=== PATIENT | male | born 1955 | race Caucasian/White ===

== ENCOUNTER 2024-04-25 17:26 | Emergency (ER) | payer OTHER ==
[~2024-04-25] VITALS: Ht 167.6 cm; Wt 63.5 kg
[2024-04-25] MEDS ORDERED: LIDOCAINE HCL 1% 20 ML VIAL INJ STA (18:03)
[2024-04-25 18:15] VITALS: BP 168/89; PULSE 86; RESP 16; TEMP 98.3; O2SAT 98
--- NOTE | 2024-04-25 18:16 | NUR ---
WOUND CARE\WOUND IRRIGATED USING STERILE TECHNIQUE
[2024-04-25] MEDS ORDERED: CEPH500B PO (18:23)
--- NOTE | 2024-04-25 18:24 | ERN ---
General Chief Complaint: Laceration/Avulsion Stated Complaint: LACERATION ON ARM Time Seen by MD: 17:30 Source: patient History of Present Illness Initial Comments IN HIS IS A 68-YEAR-OLD MALE COMING IN TO BE EVALUATED FOR LEFT WRIST LACERATION. PATIENT STATES THAT HE WAS WORKING ON SOME GLASS AND THE GLASS CUT HIS ANTERIOR ASPECT OF THE LEFT WRIST. HE STATES THAT THE GLASS WAS COMPLETE NO PARTICLES WERE MISSING. Allergies: Coded Allergies: No Known Drug Allergies (Unverified Allergy, Unknown, 04/25/24) Past Medical History Past Medical History: Hypertension Past Surgical History: Unknown Surgical History Other: ABLATION ROS Dictation CONSTITUTIONAL: NO CHILLS, NO FEVER, NO WEAKNESS, NO DIAPHORESIS, NO MALAISE. HEAD/FACE: NO SIGNS OF TRAUMA. EENT: NO EYE PAIN, NO BLURRED VISION, NO TEARING, NO DOUBLE VISION, NO EAR PAIN, NO EAR DISCHARGE, NO NOSE PAIN, NO NASAL CONGESTION, NO THROAT PAIN, NO THROAT SWELLING, NO MOUTH PAIN. RESPIRATORY: NO COUGH, NO ORTHOPNEA, NO SOB, NO STRIDOR, NO WHEEZING. CARDIOVASCULAR: NO CHEST PAIN, NO EDEMA, NO PALPITATIONS, NO SYNCOPE. GASTROINTESTINAL/ABDOMINAL: NO ABDOMINAL PAIN, NO CONSTIPATION, NO DIARRHEA, NO NAUSEA, NO VOMITING. GENITOURINARY: NO ABNORMAL DISCHARGE, NO DYSURIA, NO FREQUENT URINATION, NO HEMATURIA. NO COMPLAINTS OF PAIN IN THE GENITALS. MUSCULOSKELETAL: NO BACK PAIN, NO GOUT, NO JOINT PAIN, NO JOINT SWELLING, NO MUSCLE PAIN, NO MUSCLE STIFFNESS, NO NECK PAIN. INTEGUMENTARY: NO CHANGE IN COLOR, NO CHANGE IN HAIR/NAILS, NO DRYNESS, LESION, NO LUMPS, NO RASH. NEUROLOGICAL/PSYCH: NO ANXIETY, NOT DEPRESSED, NO EMOTIONAL PROBLEM, NO HEADACHE, NO NUMBNESS, NO PRE-EXISTING DEFICIT, NO HISTORY OF SEIZURES, NO TREMORS, NO WEAKNESS. HEMATOLOGIC/LYMPHATIC: NOT ANEMIC, NO HISTORY OF BLOOD CLOTS, NO APPARENT BLEEDING, NO BRUISING, GLANDS NOT SWOLLEN. ALL SYSTEMS NEGATIVE, EXCEPT NOTED. Physical Exam Physical Exam Dictation VITAL SIGNS: REVIEWED. GENERAL APPEARANCE: ALERT, ORIENTED X3, NO ACUTE DISTRESS, OBESE. HEAD AND FACE: NON-TRAUMATIC. EYES: PERRL, PINK CONJUNCTIVAS, EYELID NO TRAUMA, ANTERIOR CHAMBER CLEAR. EARS: PINNAS INTACT AND NO SIGNS OF TRAUMA OR ERYTHEMA. EAR CANALS CLEAR AND NO DISCHARGE. TMS NO ERYTHEMA. NOSE: NO DISCHARGE, NO BLEEDING. OROPHARYNX: MOUTH NORMAL, TEETH NO CARIES, TONGUE PINK. PHARYNX CLEAR, NO ERYTHEMA. TONSILS NO EXUDATES, NO ABSCESSES NOTED. MUCOUS MEMBRANE MOIST. NECK: SUPPLE, NON-TENDER, NO THYROMEGALY, NO MASSES, NO JVD, NO BRUITS. BREAST: DEFERRED. CHEST: NO TENDERNESS, NO CREPITUS, NO PARADOXICAL MOVEMENT, NO RETRACTIONS. LUNGS: CLEAR, WELL-VENTILATED, SYMMETRIC, NO RALES, NO WHEEZING, NO RHONCHI, NO STRIDOR, GOOD BREATH SOUNDS BILATERALLY. HEART: REGULAR RATE, REGULAR RHYTHM, NO MURMUR, NO GALLOPS. VASCULAR: NO PERIPHERAL EDEMA. ABDOMEN: SOFT, POSITIVE BOWEL SOUNDS, NONDISTENDED, NO GUARDING, NONTENDER, NO REBOUND, NO MASSES NO HEPATOMEGALY, NO SPLENOMEGALY, NO FARAH'S SIGN, NO HERNIAS. RECTAL: DEFERRED. GENITAL: DEFERRED. NEUROLOGICAL: NORMAL SPEECH, GROSS MOTOR FUNCTION INTACT, GROSS SENSORY FUNCTION INTACT. MUSCULOSKELETAL: NECK NONTENDER, FULL RANGE OF MOTION, BACK NONTENDER, FULL RANGE OF MOTION. EXTREMITIES: NONTENDER, FULL RANGE OF MOTION. SKIN: COLOR PINK, DRY, NO TURGOR, NO RASH, LEFT FOREARM LACERATIONS Y SHAPED 3 CM X 3 CM, NO ABRASIONS, NO CONTUSIONS. LYMPHATICS: DEFERRED. Results Laboratory and Microbiology Labs Reviewed?: Yes MDM MDM: DIFFERENTIAL DIAGNOSIS: LACERATION REPAIR, WOUND 68-YEAR-OLD MALE COMING IN TO BE EVALUATED FOR LEFT WRIST LACERATION. LACERATION WAS ANESTHETIZED USING LIDOCAINE 1% 5 ML WERE USED. GOOD ANESTHESIA ACHIEVED. USING ETHILON FOUR 0 SIX SUTURES WERE PLACED GOOD APPROXIMATION, HEMOSTASIS OBTAINED. PATIENT WILL BE DISCHARGED WITH A DIAGNOSIS OF LACERATION OF THE WRIST. ED Course Orders Procedure Category Date Status Time Lidocaine Hcl 1% 20ml PHA 04/25/24 Complete Vial (Lidocaine Hc 18:03 Tetanus,Diphtheria PHA 04/25/24 In Process Tox [Adult] (Diphther 18:30 Current Medications Medications (Trade) Dose Ordered Sig/Carmen Route PRN Reason Start Time Stop Time Status Last Admin Dose Admin Lidocaine HCl (Lidocaine HCl 1% 20ml Vial) 20 ml ONCE STAT INJ 04/25/24 18:03 04/25/24 18:04 DC Tetanus/ Diphtheria Toxoids Adsorbed (DiphthERIA-teTANUS TOXOID [ADULT]/ DECAVAC) 0.5 ml ONCE ONCE IM 04/25/24 18:30 04/25/24 18:31 Vital Signs Date Time Temp Pulse Resp B/P (MAP) Pulse Ox O2 Delivery O2 Flow Rate FiO2 04/25/24 18:05 98.1 87 16 177/77 98 Room Air 0 Laceration/Wound Repair Laceration/Wound Repair : Wound Location: upper extremity Wound's Depth, Shape: superficial Wound Explored: clean Irrigated w/ Saline (ccs): 100 Betadine Prep?: Yes Anesthesia: 1% Lidocaine Volume Anesthetic (ccs): 5 Wound Repaired With: sutures Suture Size/Type: 4:0 Number of Sutures: 6 Layer Closure?: Yes DX & DISP Disposition: Discharge Departure Impression: Primary Impression: Wrist laceration Condition: Stable Scripts Cephalexin Monohydrate (Keflex) 500 Mg Cap 1 CAP PO TID for 10 Days, #30 CAP 0 Refills Prov: MALIK CHASE MD 04/25/24 Additional Instructions: FOLLOW-UP WITH PRIMARY CARE PROVIDER IN 1 TO 2 DAYS. TAKE MEDICATIONS DIRECTED HERE IN THE EMERGENCY ROOM. OKAY TO CONTINUE HOME MEDICATIONS UNLESS OTHERWISE DISCUSSED DURING YOUR VISIT IN THE EMERGENCY ROOM TODAY. RETURN TO YOUR NEAREST EMERGENCY ROOM IF SYMPTOMS WORSEN OR IF THERE IS NO IMPROVEMENT. CALL 911 IF YOU NEED IMMEDIATE ASSISTANCE. TAKE TYLENOL [id number] NEEDED AND IF NO CONTRAINDICATIONS ARE PRESENT. INCREASE ORAL HYDRATION. A WOUND CULTURE OR URINE CULTURE WAS ORDERED HERE IN THE EMERGENCY ROOM DEPARTMENT PLEASE FOLLOW-UP WITH PRIMARY CARE PROVIDER AND ADVISE THEM TO GET REPEAT PORTS FROM OUR FACILITY. IF YOU HAD ANY SNIDI WRAP/SPLINTS THAT WERE APPLIED HERE, PLEASE DO NOT REMOVE THEM UNTIL YOU SEE YOUR PRIMARY CARE OR SPECIALTY. REFERRALS: Referrals: ANTON HALL MD Time of Disposition: 18:23 MALIK CHASE MD Apr 25, 2024 18:24
--- NOTE | 2024-04-25 18:30 | NUR ---
ANTISEPTIC OINTMENT APPLIED PER PROVIDER ORDER, WOULD DRESSED USING STERILE GAUZE. WOUND CARE INSTRUCTIONS PROVIDED. PATIENT VERBALIZED UNDERSTANDING.
[2024-04-25] MEDS: teTANUS/diphthERIA TOXOID [ADULT] 0.5 ML VIAL IM ONE (18:33)
== END 2024-04-25 18:46 | disposition home or self-care (01) ==
LOC: EDH 17:26
DX: S61.512A Laceration without foreign body of left wrist, initial encounter (principal); I10 Essential (primary) hypertension; Z98.890 Other specified postprocedural states; W25.XXXA Contact with sharp glass, initial encounter; Y93.89 Activity, other specified; Y92.89 Other specified places as the place of occurrence of the external cause; Y99.8 Other external cause status
CPT/HCPCS: 12004; 90471; 90714; 99283

== ENCOUNTER 2025-03-13 17:50 | Inpatient (IN) | payer OTHER ==
[~2025-03-13] VITALS: Ht 180.3 cm; Wt 54.2 kg
[~2025-03-13 17:50] MED LIST: CEPH500B PO
[2025-03-13 18:16] LABS: SARS-CoV-2, RNA, NAAT NEGATIVE SARS CoV-2 (NEGATIVE)
[2025-03-13 18:18] LABS: RAPID GROUP A STREP negative (NEGATIVE)
[2025-03-13 18:29] LABS: INFLUENZA TYPE A Negative For Type A (NEGATIVE); INFLUENZA TYPE B Negative For Type B (NEGATIVE)
[2025-03-13 18:59] LABS: IMMATURE GRANULOCYTE ABSOLUTE 0.05 K/uL (0-1); NUCLEATED RED BLOOD CELLS 0.0 % (0.0-0.19); PLATELET COUNT (AUTO) 142 K/uL (130-400); RED BLOOD CELL COUNT(AUTO) 4.08 MIL/uL (4.50-6.20); RED CELL DISTRIBUTION WIDTH 13.8 % (11.0-15.5); WHITE BLOOD COUNT (AUTO) 11.7 K/uL (4.8-10.8)
[2025-03-13 19:00] LABS: CREATININE 0.6 mg/dL (0.5-1.3); GLOMERULAR FILTR. RATE CALC 104.0 mL/min (>90); GLUCOSE,RANDOM 103.0 mg/dL (70-105); SODIUM SERUM 128.0 mmol/L (136-145); UREA NITROGEN, BLOOD 7.0 mg/dL (7-18)
[2025-03-13 19:14] LABS: CREATINE KINASE, TOTAL 132.0 U/L (21-232)
--- NOTE | 2025-03-13 19:25 | EKG ---
[facility] Test Date: 2025-03-13 Test Time: 19:20:58 Pat Name: CHETNA SORIANO Department: ED Room: Gender: M Oncology Specialist: [id number] : 1955 Requested By: MOI STARKS Order Number: [id number] Reading MD: Manuel Montano Measurements Intervals [place] Rate: 106 P: 80 TN: 137 QRS: 83 QRSD: 152 T: -40 QT: 367 QTc: 474 Interpretive Statements Sinus tachycardia Atrial premature complexes Right bundle branch block ST depr, consider ischemia, inferior leads No previous ECG available for comparison Electronically Signed On 03-13-2025 21:54:30 GENERAL INSPECTOR by Manuel Montano Please click the below link to view image of tracing.
--- NOTE | 2025-03-13 19:29 | HMCIMG ---
EXAM: CR Chest, 1 View. CLINICAL HISTORY: COUGH COMPARISON: None provided. FINDINGS: LUNGS: Moderate left basilar infiltrate. Pneumonia likely Emphysematous lung changes PLEURAL SPACES: Left pleural effusion MEDIASTINUM: Cardiac size and mediastinal contours within normal limits. BONES: No acute osseous abnormality. IMPRESSION: 1. Moderate left basilar infiltrate. Pneumonia likely 2. Left pleural effusion 3. Emphysematous lung changes /[place]
--- NOTE | 2025-03-13 20:17 | NUR ---
PT ORIENTED TO ROOM, BED IN LOW POSITION, CALL LIGHT WITHIN REACH
--- NOTE | 2025-03-13 20:29 | HMCIMG ---
EXAM: US for Deep Venous Thrombosis, right lower Extremity. CLINICAL HISTORY: Leg Pain and Swelling TECHNIQUE: Real-time ultrasound scan of the veins of the right ower extremity with color Doppler flow, spectral waveform analysis and compression. COMPARISON: None provided. FINDINGS: DEEP VEINS: The common femoral, superficial femoral, and popliteal veins are echolucent and compressible. There is normal color Doppler flow throughout. The visualized calf veins appear patent. SOFT TISSUES: No popliteal fossa cyst or other abnormalities. IMPRESSION: No deep venous thrombosis evident on right lower extremity examination. /[place]
--- NOTE | 2025-03-13 20:46 | HMCIMG ---
EXAMINATION: DUPLEX ULTRASOUND EXAMINATION OF THE RIGHT LOWER EXTREMITY ARTERIES. CLINICAL HISTORY: Right foot discoloration. COMPARISON: None. FINDINGS: Peak systolic velocities within the right lower arteries are as follows: Common femoral artery: 186 cm/s. Superficial femoral artery: 78 cm/s at proximal, 90 cm/s at mid, and 42 cm/s at distal segments. Popliteal artery: 59 cm/s at proximal and 39 cm/s at distal segments. Posterior tibial artery: 11 cm/s. Anterior tibial artery: 46 cm/s. Dorsalis pedis artery: No flow. The right lower limb arteries demonstrate biphasic waveforms in common femoral, superficial femoral and monophasic in the remainder of the arteries. There are Atherosclerotic changes, characterised by multifocal atherosclerotic plaques and intimal wall thickening, in the right lower limb arteries. IMPRESSION: atherosclerotic changes in the right lower limb arteries. The right lower limb arteries demonstrate biphasic waveforms in common femoral, superficial femoral and monophasic in the remainder of the arteries. Increased velocity in the right common femoral artery. No flow in the dorsalis pedis artery. Recommend CT or MR angiogram. /[place]
[2025-03-13 20:47] VITALS: PULSE 77; RESP 18
[2025-03-13 20:50] LABS: INR 1.17 (0.85-1.15)
[2025-03-13] MEDS: 0.9%NACL 1000ML 1,000 ML IV ONE (22:22)
[2025-03-13] MEDS ORDERED: OXYC10TA48 PO (22:46)
[2025-03-13] MEDS ORDERED: OXYC20TA41 PO (22:47)
--- NOTE | 2025-03-13 22:56 | HP ---
[facility] HISTORY AND PHYSICAL Date of Service: Mar 13, 2025 Time of Service: 22:56 PCP: Self Referral HISTORY OF PRESENT ILLNESS: This is a 69-year-old male,from [facility] here for a vacation, a poor historian with past medical history of COPD,a heavy smoke r,Hyperlipidemia,hypertension,peripheral arterial disease,lupus and liver cirrhosis who present to the ED for complaints of cough,nasal congestion,fever and generalized body weakness started 2 days ago and got worse today. Patient reports he has clots on both legs and patient on Eliquis he said.Patient has left lower extremity swelling and redness discoloration.patient has discolor ation to right lower extremity as well. Seen and examined patient in the ER awake,alert and coherent.Patient denies chest pain,palpitation shortness of breath. Latest vital signs temperature 98.4, heart rate 96, blood pressure 129/51 saturation 91% on room air. Labs: WBC 11 with negative left shift of neutrophils 87, hemoglobin 13, hematocrit 39 and platelet count 142. Sodium 128, chloride 95, lactic acid 1.9, total calcium 8.4 BNP 180. Influenza type a and B negative SARS COVID negative group a strep negative. Chest x-ray result revealed moderate left basilar infiltrate. Pneumonia likely. Left pleural effusion. Emphysematous lung changes. Right lower extremity arterial Doppler study result revealed atherosclerotic changes in the right lower limb arteries right lower extremity arteries demonstrate biphasic waveforms in common femoral superficial femoral and monophasic in the remainder of the arteries increased velocity in the right common femoral artery. No flow in the dorsalis pedis artery recommend CT or MR angiogram. Venous Doppler to right lower extremity result revealed no deep venous thrombosis evident on the right lower extremity. While in the ER patient received 1 L NS bolus, Tylenol 1000 mg p.o., Solu-Medrol 80 mg IV, DuoNeb treatment, ceftriaxone 1 g IV and azithromycin IV and nicotine patch 14 mg. We will admit patient for further medical management REVIEW OF SYSTEMS CONSTITUTIONAL: + fever Denies chills, or night sweats. No unintentional weight loss reported. NEUROLOGICAL: Denies headache, amaurosis fugax, motor weakness, sensory deficit, vertigo/spinning sensation, gait abnormalities, or tremors. ENT: No hearing loss, otalgia, otorrhea, rhinitis, rhinorrhea, hoarseness, or sore throat. CARDIOVASCULAR: Denies any exertional angina, dyspnea on exertion, orthopnea, paroxysmal nocturnal dyspnea, palpitations, life-threatening arrhythmias, claudication. PULMONARY: + productive cough Denies any shortness of breathhemoptysis, pleuritic chest pain. SLEEP: Denies morning headaches, daytime somnolence or napping. Denies difficulty falling asleep, staying asleep, waking from sleep. Denies knowledge of snoring. GASTROINTESTINAL: Denies any type of dysphagia to either liquids or solids. Denies nausea, vomiting, pyrosis, early satiety, abdominal pain, diarrhea, constipation, or changes in stool consistency or caliber. Denies coffee-ground emesis, hematemesis, hematochezia, or melanotic stools. GENITOURINARY: Denies frequency, urgency, nocturia, hematuria or incontinence (Storage/Irritative symptoms.) Low urinary stream, straining to void, urinary intermittency or hesitancy, splitting of the voiding stream, terminal dribbling. ENDOCRINOLOGIC: Denies polyuria, polydipsia, polyphagia or heat/cold intolerances. HEMATOLOGIC: Denies thrombophilia/previous clots, or coagulopathy/bleeding disorders. ONCOLOGIC: Denies personal history of malignancy. DERMATOLOGIC: Denies rashes or pruritus. PSYCHIATRIC: Denies any suicidal or homicidal ideation. Denies hallucinations. PAST MEDICAL HISTORY: [ Chronic obstructive pulmonary disease, heavy smoker, hyperlipidemia, hypertension, peripheral arterial disease, lupus and liver cirrhosis] PAST SURGICAL HISTORY: [Patient denies ] PAST SOCIAL HISTORY: [ Patient lives with . Patient admits to smoking one pack of cigarette per day. Patient denies alcohol and recreational drug use ] FAMILY HISTORY: [ Noncontributory ] Coded Allergies: No Known Drug Allergies (Unverified Allergy, Unknown, 04/25/24) PHYSICAL EXAM GENERAL APPEARANCE: The patient is awake, alert, and oriented, in no acute cardiopulmonary distress. NEUROLOGICAL: Cranial nerves II-XII grossly intact. Motor is 5/5 in bilateral upper and lower extremities proximal to distal. No sensory deficits. HEENT: Face is symmetric. Pupils are equal and reactive. Extraocular movements are intact. NECK: Supple. No JVD. No thyromegaly. No submental, submandibular, pre- /postauricular, occipital or supraclavicular lymphadenopathy. CHEST: Normal chest expansion. No Telemetry. LUNGS: Absence of any rales, rhonchi or any wheezing. CARDIOVASCULAR: Regular. S1 and S2 normal. No appreciable rubs, murmurs or gallops. ABDOMEN: Soft, nontender, and nondistended. There is no rebound, voluntary guarding, or rigidity. : Deferred. No [place]. EXTREMITIES: Non-edematous and not cyanotic. No clubbing. Good capillary refill. SKIN: No skin breakdown. Vital Sign (Last 24 Hours) 03/13/25 22:47 Temp 98.4 Pulse 96 Resp 18 B/P (MAP) 129/51 Pulse Ox 91 O2 Delivery Room Air* O2 Flow Rate 0 FiO2 21 LABS: Laboratory: Test 03/13/25 20:28 03/13/25 18:41 03/13/25 17:52 Range/Units Prothrombin Time 12.2 H 9.6-11.6 SEC Prothromb Time International Ratio 1.17 H 0.85-1.15 Activated Partial Thromboplast Time 37.6 H 26.3-35.5 SEC White Blood Count 11.7 H 4.8-10.8 K/uL Red Blood Count 4.08 L 4.50-6.20 MIL/uL Hemoglobin 13.2 L 14.0-18.0 g/dL Hematocrit 39.4 L 42-54 % Mean Corpuscular Volume 96.6 79-99 fL Mean Corpuscular Hemoglobin 32.4 27.0-33.0 pg Mean Corpuscular Hemoglobin Concent 33.5 32.0-36.0 g/dL Red Cell Distribution Width 13.8 11.0-15.5 % Platelet Count 142 130-400 K/uL Mean Platelet Volume 11.8 H 7.5-10.5 fL Immature Granulocyte % (Auto) 0.4 0-1 % Neutrophils (%) (Auto) 87.0 H 40.0-77.0 % Lymphocytes (%) (Auto) 8.0 L 21.0-51.0 % Monocytes (%) (Auto) 4.3 3.0-13.0 % Eosinophils (%) (Auto) 0.1 0.0-8.0 % Basophils (%) (Auto) 0.2 0.0-5.0 % Neutrophils # (Auto) 10.2 H 1.8-7.7 K/uL Lymphocytes # (Auto) 0.9 L 1.0-4.8 K/uL Monocytes # (Auto) 0.5 0.1-1.0 K/uL Eosinophils # (Auto) 0.01 0.00-0.70 K/uL Basophils # (Auto) 0.02 0.00-0.20 K/uL Absolute Immature Granulocyte (auto 0.05 0-1 K/uL Nucleated Red Blood Cells 0.0 0.0-0.19 % White Cell Morphology Comment See comments Sodium Level 128 L 136-145 mmol/L Potassium Level 4.0 3.5-5.1 mmol/L Chloride Level 95 L 101-111 mmol/L Carbon Dioxide Level 30 21-32 mmol/L Blood Urea Nitrogen 7 7-18 mg/dL Creatinine 0.6 0.5-1.3 mg/dL Glomerular Filtration Rate Calc 104 >90 mL/min Random Glucose 103 70-105 mg/dL Lactic Acid Level 1.9 0.8-2.5 mmol/L Total Calcium 8.4 L 8.5-10.1 mg/dL Total Creatine Kinase 132 21-232 U/L Troponin I High Sensitivity 29 4-75 ng/L B-Type Natriuretic Peptide 180 H 0-100 pg/mL Influenza Type A Antigen Negative For Type A NEGATIVE Influenza Type B Antigen Negative For Type B NEGATIVE SARS-CoV-2, RNA, NAAT NEGATIVE SARS CoV-2 NEGATIVE Group A Streptococcus Rapid negative NEGATIVE DIAGNOSTICS / RADIOLOGY: [ ] ASSESSMENT: Possible community-acquired pneumonia POA COPD exacerbation POA Acute respirsatory failure POA Acute anemia POA Hyponatremia POA Hypochloremia POA Hypocalcemia POA Elevated BNP POA Peripheral arterial disease POA Hypertension POA Hyperlipidemia POA Nicotine dependence POA PLAN: We will admit patient in medical telemetry We will start on heart healthy diet We will start NS @ 100 ml / hr x 1 bag and re evaluate We will start on Solumedrol 40 mg IV bid We will continue Rocephin and azithromycin IV for broad-spectrum coverage We will start on famotidine 20 mg p.o. daily for GI prophylaxis We will replace electrolytes as needed per protocol Continue oxygen supplementation and DuoNeb treatment We will start on nicotine patch 14 mg daily We will add prn medication for fever,pain,cough , nausea and vomiting We will reconcile home meds once medlist available We will seek pulmonology consultation We will request labs in am Further orders to follow depending on above results Case discussed with attending physician and came up with above treatment and plan of care. ADVANCED CARE PLANNING 1. Which of the following were discussed? Hospice Care - No Therapeutic options - Yes Advance Directives - No Other discussions - 2. Discussed with who? Patient 3. Voluntary nature of this service was explained to the patient? Yes 4. Amount of time spent - __24 min 5. Reviewed by Physician? (if this service was performed by NPP) Yes Patient seen and examined by me. Agree with note by NEGATIVE RETOUCHER SEE ADDITIONAL ORDERS PER CHART DISCUSSED WITH NURSING STAFF LAILA WISDOM LEGAL MEDIATOR Mar 13, 2025 22:56
--- NOTE | 2025-03-13 23:43 | NUR ---
[employer]F SALES ASSOCIATE AT BEDSIDE.
[2025-03-14] VITALS (17 sets, daily range): BP systolic 154–179; BP diastolic 69–89; PULSE 66–121; RESP 16–20; TEMP 97.6–98.1; O2SAT 91–97
[2025-03-14] MEDS: AZITHROMYCIN 500MG+NS 250ML 250 ML IV SCH
[2025-03-14] MEDS: NICOTINE 14 MG/ 24 HR PATCH TD ONE
[2025-03-14] MEDS: AZITHROMYCIN 500MG+NS 250ML 250 ML IV ONE
[2025-03-14 00:28] LABS: APPEARANCE,URINE CLEAR (CLEAR); GLUCOSE, URINE (UA) NEGATIVE (NEGATIVE); LEUKOCYTE ESTERASE ,URINE NEGATIVE Leu/uL (NEGATIVE); NITRATE,URINE NEGATIVE (NEGATIVE); OCCULT BLOOD,URINE NEGATIVE (NEGATIVE)
[2025-03-14 00:32] LABS: ADD UA MICROSCOPIC YES
--- NOTE | 2025-03-14 00:33 | ERN ---
ED Note History of Present Illness Stated Complaint: POSSIBLE CAP Chief Complaint: Cough Time Seen by MD: 17:58 Time Seen by Midlevel: 17:50 Dictation: The patient is a 69-year-old male with a history of peripheral artery disease on Eliquis, hypertension, hyperlipidemia, COPD who presents to the emergency department with complaints of cough, nasal congestion, fevers, weakness onset today. Patient denies any nausea, vomiting, diarrhea. Patient is poor historian. Allergies: Coded Allergies: No Known Drug Allergies (Unverified Allergy, Unknown, 04/25/24) Home Meds Active Scripts Cephalexin Monohydrate (Keflex) 500 Mg Cap, 1 CAP PO TID for 10 Days, #30 CAP 0 Refills Prov:MALIK CHASE MD 04/25/24 Reported Medications Oxycodone HCl (Oxycodone HCl) 20 Mg Tablet, 1 TAB PO BID PRN for pain for 5 Days, #20 TAB 0 Refills 03/13/25 Oxycodone HCl (Oxycodone HCl) 10 Mg Tablet, 1 TAB PO BID PRN for pain for 5 Days, #20 TAB 0 Refills 03/13/25 Past Medical History Past Medical History: COPD, High Cholesterol, Hypertension, Other Additional Past Medical Hx: LUPUS, LIVER CIRRHOSIS. Surgical History: None Surgical History Other: ABLATION RN Note Reviewed/Agreed w/PFSH: Yes Review of System Dictation Constitutional: Negative for ,chills, and weight loss positive for fever Eyes: Negative for injury, pain,redness, and discharge ENT: Negative for injury,pain or swelling Cardiovascular: Negative for chest pain, palpitations, and edema Respiratory: Negative for wheezing, positive for cough Abdomen/GI: Negative for abdominal pain, nausea, vomiting, diarrhea, and constipation Back: Negative for injury and pain : Negative for injury, bleeding and discharge MS/Extremity: Negative for injury and deformity Skin: Negative for rash, and discoloration Neuro: Negative for headache, numbness, tingling, and seizure positive for weakness Psych: Negative for suicide ideation, homicidal ideation, and hallucinations Initial Vital Sign VS Vital Signs Date Time Temp Pulse Resp B/P (MAP) Pulse Ox O2 Delivery O2 Flow Rate FiO2 03/13/25 17:52 99.9 113 18 178/69 95 Room Air 0 03/13/25 22:47 21 Physical Exam Dictation Vital Signs reviewed General Appearance: Alert, oriented x 3, mildly distress, well developed, disheveled Head and Face: non-traumatic. Eyes: PERRL, pink conjunctivas, eyelid no trauma, anterior chamber with arcus senilis. Ears: Pinnas intact and no signs of trauma or erythema ear canals clear and no discharge TM no erythema Nose: No discharge, no bleeding. Oropharynx: Mouth normal, tongue pink. pharynx clear,no erythema, tonsils no exudates, no abscesses noted, mucous membrane moist Neck: Supple, non-tender, no thyromegaly, no masses, no JVD, no bruits Breast:Deferred Chest:No tenderness, no crepitus, no paradoxical movement, no retractions Lungs:Clear, well-ventilated, symmetric, no rales, no wheezing, no rhonchi, no stridor, diminished sounds bilaterally Heart: Regular rate, regular rhythm, no murmur, no gallops Vascular: 1+ peripheral edema left lower extremity, right lower extremity with discoloration and coolness to touch to right foot Abdomen: Soft, positive bowel sounds, nondistended, no guarding, nontender, no rebound, no masses no hepatomegaly, no splenomegaly, no Hodges's sign, no hernias. Rectal: Deferred Genital: Deferred Neurological: Normal speech, motor function intact, sensory function intact Musculoskeletal: Neck nontender, full range of motion, back nontender, full range of motion, Extremities: nontender, full range of motion Skin: Color pink, dry, no turgor, no rash, no lacerations, no abrasions, no contusions. Lymphatic: Deferred Results (Laboratory/Radiology) Laboratory/Radiology Laboratory Tests Test 03/13/25 17:52 03/13/25 18:41 03/13/25 20:28 Influenza Type A Antigen Negative For Type A Influenza Type B Antigen Negative For Type B SARS-CoV-2, RNA, NAAT NEGATIVE SARS CoV-2 Group A Streptococcus Rapid negative (NEGATIVE) White Blood Count 11.7 K/uL (4.8-10.8) H Red Blood Count 4.08 MIL/uL (4.50-6.20) L Hemoglobin 13.2 g/dL (14.0-18.0) L Hematocrit 39.4 % (42-54) L Mean Corpuscular Volume 96.6 fL (79-99) Mean Corpuscular Hemoglobin 32.4 pg (27.0-33.0) Mean Corpuscular Hemoglobin Concent 33.5 g/dL (32.0-36.0) Red Cell Distribution Width 13.8 % (11.0-15.5) Platelet Count 142 K/uL (130-400) Mean Platelet Volume 11.8 fL (7.5-10.5) H Immature Granulocyte % (Auto) 0.4 % (0-1) Neutrophils (%) (Auto) 87.0 % (40.0-77.0) H Lymphocytes (%) (Auto) 8.0 % (21.0-51.0) L Monocytes (%) (Auto) 4.3 % (3.0-13.0) Eosinophils (%) (Auto) 0.1 % (0.0-8.0) Basophils (%) (Auto) 0.2 % (0.0-5.0) Neutrophils # (Auto) 10.2 K/uL (1.8-7.7) H Lymphocytes # (Auto) 0.9 K/uL (1.0-4.8) L Monocytes # (Auto) 0.5 K/uL (0.1-1.0) Eosinophils # (Auto) 0.01 K/uL (0.00-0.70) Basophils # (Auto) 0.02 K/uL (0.00-0.20) Absolute Immature Granulocyte (auto 0.05 K/uL (0-1) Nucleated Red Blood Cells 0.0 % (0.0-0.19) White Cell Morphology Comment See comments Sodium Level 128 mmol/L (136-145) L Potassium Level 4.0 mmol/L (3.5-5.1) Chloride Level 95 mmol/L (101-111) L Carbon Dioxide Level 30 mmol/L (21-32) Blood Urea Nitrogen 7 mg/dL (7-18) Creatinine 0.6 mg/dL (0.5-1.3) Glomerular Filtration Rate Calc 104 mL/min (>90) Random Glucose 103 mg/dL (70-105) Lactic Acid Level 1.9 mmol/L (0.8-2.5) Total Calcium 8.4 mg/dL (8.5-10.1) L Total Creatine Kinase 132 U/L (21-232) Troponin I High Sensitivity 29 ng/L (4-75) B-Type Natriuretic Peptide 180 pg/mL (0-100) H Prothrombin Time 12.2 SEC (9.6-11.6) H Prothromb Time International Ratio 1.17 (0.85-1.15) H Activated Partial Thromboplast Time 37.6 SEC (26.3-35.5) H REASON: COUGH ORDERING PHYSICIAN: MOI STARKS MD PROCEDURE: CXR1VW - CHEST 1VW EXAM: CR Chest, 1 View. CLINICAL HISTORY: COUGH COMPARISON: None provided. FINDINGS: LUNGS: Moderate left basilar infiltrate. Pneumonia likely Emphysematous lung changes PLEURAL SPACES: Left pleural effusion MEDIASTINUM: Cardiac size and mediastinal contours within normal limits. BONES: No acute osseous abnormality. IMPRESSION: 1. Moderate left basilar infiltrate. Pneumonia likely 2. Left pleural effusion 3. Emphysematous lung changes /[place] REASON: swelling ORDERING PHYSICIAN: BRENT BELL PROCEDURE: VENOUS UNI - US VENOUS DOPPLER UNILATERAL EXAM: US for Deep Venous Thrombosis, right lower Extremity. CLINICAL HISTORY: Leg Pain and Swelling TECHNIQUE: Real-time ultrasound scan of the veins of the right ower extremity with color Doppler flow, spectral waveform analysis and compression. COMPARISON: None provided. FINDINGS: DEEP VEINS: The common femoral, superficial femoral, and popliteal veins are echolucent and compressible. There is normal color Doppler flow throughout. The visualized calf veins appear patent. SOFT TISSUES: No popliteal fossa cyst or other abnormalities. IMPRESSION: No deep venous thrombosis evident on right lower extremity examination. /[place] Labs Reviewed?: Yes EKG: (+) rhythm (Sinus tachycardia) EKG Comment: Date:03/13/2025 Time:192 Ventricular rate:106 AK interval:137 QRS duration:152 QT/QTc:367/474 EKG interpretation: Sinus tachycardia, right bundle-branch block, ST-depression Reviewed by ED Attending no STEMI ED Course ED Course Orders Procedure Category Date Status Time Covid Rna Naat LAB 03/13/25 Complete 17:51 Influenza Type A & B, LAB 03/13/25 Complete Rapid 17:51 Rapid (Group A Strep) LAB 03/13/25 Complete 17:51 12 Lead Ekg Tracing- EKG 03/13/25 Resulted Technical 17:51 Chest 1vw RAD 03/13/25 Resulted 17:51 Cbc With Differential LAB 03/13/25 Complete 17:51 Basic Metabolic Panel LAB 03/13/25 Complete 17:51 Urinalysis Profile LAB 03/13/25 In Process 17:51 Troponin I High LAB 03/13/25 Complete Sensitivity 17:51 B-Type Natriuretic LAB 03/13/25 Complete Peptide 18:33 Blood Cult SHIRA 03/13/25 In Process 18:33 Creatine Kinase, Total LAB 03/13/25 Complete 18:33 Lactic Acid LAB 03/13/25 Complete 18:33 0.9%Nacl 1000ml (Ns PHA 03/13/25 Complete 1000ml) 19:00 Acetaminophen 500mg PHA 03/13/25 Complete Tab (Tylenol 500mg T 19:00 Us Venous Doppler US 03/13/25 Resulted Unilateral 18:33 Methylprednisolone PHA 03/13/25 Complete Succ 125mg (Solu-Medr 19:00 Ipratropium/Albuterol PHA 03/13/25 Complete Neb (Duoneb) 19:00 Us Arterial Unila Low US 03/13/25 Resulted Ext Dupl 19:04 Pt And Ptt LAB 03/13/25 Complete 19:04 Ceftriaxone 1g Vial PHA 03/13/25 Complete (Rocephine 1g Inj) 20:00 Azithromycin 500mg+Ns PHA 03/13/25 Complete 250ml (Azithromyci 20:00 Edm Admit Bridge Order ADM 03/13/25 Transmitted 22:00 Nicotine 14mg Patch PHA 03/13/25 Complete (Nicoderm) 23:30 Vital Signs(Adult CPOE 03/13/25 Transmitted Hospitalist) 23:49 Oxygen By Nc/Pulse Ox CPOE 03/13/25 Transmitted 23:49 Daily Weights CPOE 03/13/25 Transmitted 23:49 I&O Q Shift CPOE 03/13/25 Transmitted 23:49 Fever: Blood Cx X 2 CPOE 03/13/25 Transmitted 23:49 Acetaminophen 325 Tab PHA 03/14/25 In Process (Tylenol 325mg Tab 00:00 Acetaminophen 325 Tab PHA 03/14/25 In Process (Tylenol 325mg Tab 00:00 Ondansetron 4mg Inj PHA 03/14/25 In Process (Zofran 4mg Inj) 00:00 Ipratropium/Albuterol PHA 03/14/25 In Process Neb (Duoneb) 02:00 Pulse Ox(Continuous) RT 03/13/25 Transmitted 23:49 Nurse To Enter Home CPOE 03/13/25 Transmitted Medication 23:49 Admit Orders ADM 03/13/25 Transmitted 23:49 Condition: CPOE 03/13/25 Transmitted 23:49 Telemetry Monitoring CPOE 03/13/25 Transmitted 23:49 Activity: Bedrest CPOE 03/13/25 Transmitted With Brp 23:49 Heart Healthy Diet DIET 03/14/25 Transmitted Breakfast Apply Scds CPOE 03/13/25 Transmitted 23:49 Famotidine 20mg Tab PHA 03/14/25 In Process (Pepcid 20mg Tab) 09:00 Azithromycin 500mg+Ns PHA 03/14/25 In Process 250ml (Azithromyci 00:00 0.9%Nacl 1000ml (Ns PHA 03/14/25 In Process 1000ml) 00:00 Ceftriaxone 1g Vial PHA 03/14/25 Complete (Rocephine 1g Inj) 00:00 Pulmonology Consult CONPHYSVC 03/13/25 Transmitted 23:56 Case Management CM 03/13/25 Transmitted Evaluation 23:57 Ceftriaxone 1g Vial PHA 03/14/25 In Process (Rocephine 1g Inj) 00:30 Nicotine 14mg Patch PHA 03/15/25 In Process (Nicoderm) 22:00 Current Medications Medications (Trade) Dose Ordered Sig/Carmen Route PRN Reason Start Time Stop Time Status Last Admin Dose Admin Acetaminophen (TYLenol 500MG TAB) 1,000 mg ONCE ONCE PO 03/13/25 19:00 03/13/25 19:01 DC Albuterol (DUOneb) 1 UDVIAL ONCE ONCE IH 03/13/25 19:00 03/13/25 19:01 DC 03/13/25 20:47 Azithromycin 250 ml @ 125 mls/hr ONCE ONCE IV 03/13/25 20:00 03/13/25 21:59 DC 03/14/25 00:00 Ceftriaxone Sodium (ROCEphine 1G INJ) 1 gm ONCE ONCE IVPB 03/13/25 20:00 03/13/25 20:42 DC 03/13/25 22:22 Methylprednisolone Sodium Succinate (Solu-medROL 125MG) 80 mg ONCE ONCE IVP 03/13/25 19:00 03/13/25 19:01 DC 03/13/25 22:22 Nicotine (Nicoderm) 14 mg ONCE ONCE TD 03/13/25 23:30 03/13/25 23:31 DC 03/14/25 00:00 Sodium Chloride 1,000 ml @ 0 mls/hr ONCE ONCE IV 03/13/25 19:00 03/13/25 19:01 DC 03/13/25 22:22 Vital Signs Date Time Temp Pulse Resp B/P (MAP) Pulse Ox O2 Delivery O2 Flow Rate FiO2 03/13/25 23:49 99 18 150/56 98 Nasal Cannula* 1 24 03/13/25 22:47 98.4 96 18 129/51 91 Room Air* 0 21 03/13/25 20:47 77 18 03/13/25 17:52 99.9 113 18 178/69 95 Room Air 0 Medical Decision Making MDM MDM: The patient is a 69-year-old male with a history of peripheral artery disease on Eliquis, hypertension, hyperlipidemia, COPD who presents to the em ergency department with complaints of cough, nasal congestion, fevers, weakness onset today. Patient denies any nausea, vomiting, diarrhea. Patient is poor historian. Patient noted to have right foot discoloration and coolness to touch. Patient initially was not able to tell me when the symptoms started but spoke to she reports that patient has problems with his circulation. Reports that his feet has been like that for some quite time but has not had any intervention because they told him he is not well enough to have the procedure. Patient denies any pain. CBC showed mild leukocytosis, mild normocytic anemia, chemistry showed hyponatremia, hypochloremia, normal renal function, mildly elevated BNP, negative troponin, serology was negative, chest x-ray showed left sided infiltrate and left-sided pleural effusion. Arterial ultrasound showed no flow to dorsalis pedis artery. Patient with no pain and reports that his foot has been like that for a long time. We will admit patient for further evaluation and management. Differential diagnosis: Pneumonia, sepsis, dehydration, ACS, upper respiratory infection Comorbidities: PID, hypertension, COPD, lupus Tests considered and not ordered secondary to shared decision making include: none Previous outside records reviewed: none Risk of complication and/or morbidity or mortality of patient management: The patient meets criteria for admission. Need for emergency major/minor surgery: No There are no social concerns with this patient. I independently interpreted the tests I ordered (labs, urinalysis, etc.). I discussed the case with the hospitalist for admission. [facility] who accepts admission I discussed the case with the following specialists: none. Historian: liat. I independently interpreted imaging studies and EKGs that I ordered (US, CT, XR, EKG, etc.). External chart review: none. Medical management and examination interpretation discussions were had by me with other qualified healthcare professionals as indicated for the patient's care. DX & DISP Disposition: Inpatient Decision to Admit Date: Mar 13, 2025 Decision to Admit Time: 22:00 Departure Impression: Primary Impression: Pneumonia Additional Impressions: Hyponatremia, Hypochloremia, Pleural effusion on left, Dehydration, Weakness, PAD (peripheral artery disease) Condition: Stable Referrals: SELF,REFERRAL (PCP) I have reviewed the case, and I agree with, Diagnosis and Plan BRENT BELL [employer] Mar 14, 2025 00:33
[2025-03-14] MEDS ORDERED: PREG150C47 PO (02:38)
[2025-03-14] MEDS ORDERED: FERR324T12 PO (02:38)
[2025-03-14] MEDS ORDERED: PANT40TA54 PO (02:38)
[2025-03-14] MEDS ORDERED: FOLI0.8T3 PO (02:38)
[2025-03-14] MEDS ORDERED: DILT120C95 PO (02:38)
[2025-03-14] MEDS ORDERED: HYDR200T75 PO (02:38)
[2025-03-14] MEDS ORDERED: DULO60CA64 PO (02:38)
[2025-03-14] MEDS ORDERED: APIX5TAB PO (02:38)
[2025-03-14] MEDS ORDERED: ATOR40TA69 PO (02:38)
[2025-03-14] MEDS ORDERED: DIGO125T71 PO (02:38)
[2025-03-14] MEDS ORDERED: FLUT1BLS3 IH (02:38)
[2025-03-14] MEDS ORDERED: VALA500T42 PO (02:38)
[2025-03-14] MEDS ORDERED: DILT240T13 PO (02:38)
--- NOTE | 2025-03-14 02:39 | NUR ---
HOME MEDICATIONS PATIENT ENCOURAGED TO SEND HOME MEDICATIONS WITH FAMILY MEMBER. PATIENT EDUCATED ON POSSIBLE RISK OF DOUBLE DOSING. PATIENT STATED REFUSAL AND REPORTED THAT HIS MEDICATIONS STAY WITH HIM.
[2025-03-14 08:06] LABS: NUCLEATED RED BLOOD CELLS 0.0 % (0.0-0.19); PLATELET COUNT (AUTO) 151.0 K/uL (130-400); RED BLOOD CELL COUNT(AUTO) 4.44 MIL/uL (4.50-6.20); RED CELL DISTRIBUTION WIDTH 13.7 % (11.0-15.5); WHITE BLOOD COUNT (AUTO) 5.2 K/uL (4.8-10.8)
[2025-03-14 08:27] LABS: ASPARTATE AMINOTRANSFERASE 28.0 U/L (10-37); CREATININE 0.7 mg/dL (0.5-1.3); GLOMERULAR FILTR. RATE CALC 100.0 mL/min (>90); GLUCOSE,RANDOM 155.0 mg/dL (70-105); SODIUM SERUM 130.0 mmol/L (136-145); TOTAL PROTEIN, SERUM 7.1 g/dL (6.0-8.3); UREA NITROGEN, BLOOD 10.0 mg/dL (7-18)
[2025-03-14] MEDS: 0.9%NACL 1000ML 1,000 ML IV SCH (10:00)
[2025-03-14] MEDS: SODIUM CHLORIDE 3% FOR INHALATION 4 ML/AMP VIAL.NEB IH ONE (10:36)
--- NOTE | 2025-03-14 10:36 | PN ---
[facility] PROGRESS NOTE Date of Service: Mar 14, 2025 Time of Service: 10:36 SUBJECTIVE: HISTORY OF PRESENT ILLNESS: This is a 69-year-old male,from [facility] here for a vacation, a poor historian with past medical history of COPD,a heavy smoker,Hyperlipidemia,hypertension,peripheral arterial disease,lupus and liver cirrhosis who present to the ED for complaints of cough,nasal congestion,fever and generalized body weakness started 2 days ago and got worse today. Patient reports he has clots on both legs and patient on Eliquis he said.Patient has left lower extremity swelling and redness discoloration.patient has discoloration to right lower extremity as well. Seen and examined patient in the ER awake,alert and coherent.Patient denies chest pain,palpitation shortness of breath. Latest vital signs temperature 98.4, heart rate 96, blood pressure 129/51 saturation 91% on room air. Labs: WBC 11 with negative left shift of neutrophils 87, hemoglobin 13, hematocrit 39 and platelet count 142. Sodium 128, chloride 95, lactic acid 1.9, total calcium 8.4 BNP 180. Influenza type a and B negative SARS COVID negative group a strep negative. Chest x-ray result revealed moderate left basilar infiltrate. Pneumonia likely. Left pleural effusion. Emphysematous lung changes. Right lower extremity arterial Doppler study result revealed atherosclerotic changes in the right lower limb arteries right lower extremity arteries demonstrate biphasic waveforms in common femoral superficial femoral and monophasic in the remainder of the arteries increased velocity in the right common femoral artery. No flow in the dorsalis pedis artery recommend CT or MR angiogram. Venous Doppler to right lower extremity result revealed no deep venous thrombosis evident on the right lower extremity. While in the ER patient received 1 L NS bolus, Tylenol 1000 mg p.o., Solu-Medrol 80 mg IV, DuoNeb treatment, ceftriaxone 1 g IV and azithromycin IV and nicotine patch 14 mg. patient admitted for further medical management. 03/14/2025: Patient was seen and evaluated bedside this morning, family at bedside. He is awake, alert, oriented x3, saturating 91% with2 L nasal cannula. Patient says that he is feeling good, wants to go home. Morning labs revealed white count 5.2, H&H 14.4, 42.1, CRP 79, BUN 10, creatinine 0.7. Chest X-ray revealed left basilar infiltrates, right lower extremity venous Doppler showed no DVT, right lower extremity arterial ultrasound no flow in the dorsalis pedis artery, waveforms in common femoral, superficial femoral, monophasic and remainder of RLE arteries. We will get CT abdominal aorta with BLE runoff, consult cardiology for further evaluation. Patient is currently on IV Solu- Medrol 40 mg b.i.d., IV Rocephin1 g Q 24, IV azithromycin, DuoNebs q.4 and nicotine patch. REVIEW OF SYSTEMS CONSTITUTIONAL: + fever Denies chills, or night sweats. No unintentional weight loss reported. NEUROLOGICAL: Denies headache, amaurosis fugax, motor weakness, sensory deficit, vertigo/spinning sensation, gait abnormalities, or tremors. ENT: No hearing loss, otalgia, otorrhea, rhinitis, rhinorrhea, hoarseness, or sore throat. CARDIOVASCULAR: Denies any exertional angina, dyspnea on exertion, orthopnea, paroxysmal nocturnal dyspnea, palpitations, life-threatening arrhythmias, claudication. PULMONARY: + productive cough Denies any shortness of breathhemoptysis, pleuritic chest pain. SLEEP: Denies morning headaches, daytime somnolence or napping. Denies difficulty falling asleep, staying asleep, waking from sleep. Denies knowledge of snoring. GASTROINTESTINAL: Denies any type of dysphagia to either liquids or solids. Denies nausea, vomiting, pyrosis, early satiety, abdominal pain, diarrhea, const ipation, or changes in stool consistency or caliber. Denies coffee-ground emesis, hematemesis, hematochezia, or melanotic stools. GENITOURINARY: Denies frequency, urgency, nocturia, hematuria or incontinence (Storage/Irritative symptoms.) Low urinary stream, straining to void, urinary intermittency or hesitancy, splitting of the voiding stream, terminal dribbling. ENDOCRINOLOGIC: Denies polyuria, polydipsia, polyphagia or heat/cold intolerances. HEMATOLOGIC: Denies thrombophilia/previous clots, or coagulopathy/bleeding disorders. ONCOLOGIC: Denies personal history of malignancy. DERMATOLOGIC: Denies rashes or pruritus. PSYCHIATRIC: Denies any suicidal or homicidal ideation. Denies hallucinations. PHYSICAL EXAM GENERAL APPEARANCE: The patient is awake, alert, and oriented, in no acute cardiopulmonary distress. NEUROLOGICAL: Cranial nerves II-XII grossly intact. Motor is 5/5 in bilateral upper and lower extremities proximal to distal. No sensory deficits. HEENT: Face is symmetric. Pupils are equal and reactive. Extraocular movements are intact. NECK: Supple. No JVD. No thyromegaly. No submental, submandibular, pre- /postauricular, occipital or supraclavicular lymphadenopathy. CHEST: Normal chest expansion. No Telemetry. LUNGS: Crackles on left lower lobe CARDIOVASCULAR: Regular. S1 and S2 normal. No appreciable rubs, murmurs or gallops. ABDOMEN: Soft, nontender, and nondistended. There is no rebound, voluntary guarding, or rigidity. : Deferred. No [place]ley. EXTREMITIES: Hyperpigmentation, dry ulcers on his right 2nd and 5th toes, lack of hair, brittle toenails, cool to touch SKIN: No skin breakdown. Vital Signs (last 8hr) Date Time Temp Pulse Resp B/P (MAP) Pulse Ox O2 Delivery O2 Flow Rate FiO2 03/14/25 10:35 75 20 N/Cannula Low lpm 2.0 03/14/25 07:16 97.9 93 16 158/76 91 Nasal Cannula 2.0 03/14/25 06:20 81 20 03/14/25 06:20 81 20 N/Cannula Low lpm 2.0 03/14/25 04:00 98.1 98 18 169/69 Nasal Cannula 2.0 03/14/25 03:30 170/69 LABS: Laboratory: Test 03/14/25 07:58 03/14/25 00:13 03/13/25 20:28 03/13/25 18:41 Range/Units White Blood Count 5.2 # 4.8-10.8 K/uL Red Blood Count 4.44 L 4.50-6.20 MIL/uL Hemoglobin 14.4 14.0-18.0 g/dL Hematocrit 42.1 42-54 % Mean Corpuscular Volume 94.8 79-99 fL Mean Corpuscular Hemoglobin 32.4 27.0-33.0 pg Mean Corpuscular Hemoglobin Concent 34.2 32.0-36.0 g/dL Red Cell Distribution Width 13.7 11.0-15.5 % Platelet Count 151 130-400 K/uL Mean Platelet Volume 11.7 H 7.5-10.5 fL Nucleated Red Blood Cells 0.0 0.0-0.19 % Sodium Level 130 L 136-145 mmol/L Potassium Level 4.0 3.5-5.1 mmol/L Chloride Level 96 L 101-111 mmol/L Carbon Dioxide Level 27 21-32 mmol/L Blood Urea Nitrogen 10 7-18 mg/dL Creatinine 0.7 0.5-1.3 mg/dL Glomerular Filtration Rate Calc 100 >90 mL/min Random Glucose 155 #H 70-105 mg/dL Total Calcium 8.4 L 8.5-10.1 mg/dL Total Bilirubin 0.4 0.2-1.0 mg/dL Aspartate Amino Transf (AST/SGOT) 28 10-37 U/L Alanine Aminotransferase (ALT/SGPT) 18 12-78 U/L Alkaline Phosphatase 103 50-136 U/L C-Reactive Protein, Quantitative 79.50 H 0.5-3.0 mg/L Total Protein 7.1 6.0-8.3 g/dL Albumin 2.6 L 3.5-5.0 g/dL Urine Color LIGHT-YELLOW YELLOW Urine Appearance CLEAR CLEAR Urine pH 7.0 5.0-8.0 Urine Specific [place] 1.011 1.001-1.031 Urine Protein NEGATIVE NEGATIVE mg/dL Urine Glucose (UA) NEGATIVE NEGATIVE mg/dL Urine Ketones 10 H NEGATIVE mg/dL Urine Occult Blood NEGATIVE NEGATIVE Urine Nitrate NEGATIVE NEGATIVE Urine Bilirubin NEGATIVE NEGATIVE mg/dL Urine Urobilinogen 0.2 0.2-1.0 mg/dL Urine Leukocyte Esterase NEGATIVE NEGATIVE Iron/uL Urine RBC 0-1 0-1 /HPF Urine WBC 0-1 0-1 /HPF Urine Bacteria None None Seen /HPF Prothrombin Time 12.2 H 9.6-11.6 SEC Prothromb Time International Ratio 1.17 H 0.85-1.15 Activated Partial Thromboplast Time 37.6 H 26.3-35.5 SEC Immature Granulocyte % (Auto) 0.4 0-1 % Neutrophils (%) (Auto) 87.0 H 40.0-77.0 % Lymphocytes (%) (Auto) 8.0 L 21.0-51.0 % Monocytes (%) (Auto) 4.3 3.0-13.0 % Eosinophils (%) (Auto) 0.1 0.0-8.0 % Basophils (%) (Auto) 0.2 0.0-5.0 % Neutrophils # (Auto) 10.2 H 1.8-7.7 K/uL Lymphocytes # (Auto) 0.9 L 1.0-4.8 K/uL Monocytes # (Auto) 0.5 0.1-1.0 K/uL Eosinophils # (Auto) 0.01 0.00-0.70 K/uL Basophils # (Auto) 0.02 0.00-0.20 K/uL Absolute Immature Granulocyte (auto 0.05 0-1 K/uL White Cell Morphology Comment See comments Lactic Acid Level 1.9 0.8-2.5 mmol/L Total Creatine Kinase 132 21-232 U/L Troponin I High Sensitivity 29 4-75 ng/L B-Type Natriuretic Peptide 180 H 0-100 pg/mL Test 03/13/25 17:52 Range/Units Influenza Type A Antigen Negative For Type A NEGATIVE Influenza Type B Antigen Negative For Type B NEGATIVE SARS-CoV-2, RNA, NAAT NEGATIVE SARS CoV-2 NEGATIVE Group A Streptococcus Rapid negative NEGATIVE Current Medications Medications (Trade) Dose Ordered Sig/Carmen Route PRN Reason Start Time Stop Time Status Last Admin Dose Admin Acetaminophen (TYLenol 325MG TAB) 650 mg Q4H PRN PO MILD PAIN (1-3) 03/14/25 00:00 04/13/25 00:00 Acetaminophen (TYLenol 325MG TAB) 650 mg Q6H PRN PO TEMPERATURE GREATER THAN 101.5 03/14/25 00:00 04/13/25 00:00 Albuterol (DUOneb) 1 udvial A8EDBNT IH 03/14/25 02:00 04/13/25 01:59 03/14/25 06:18 1 UDVIAL Azithromycin 250 ml @ 250 mls/hr Q24H IV 03/14/25 00:00 03/24/25 00:00 Ceftriaxone Sodium 1 gm/ Sodium Chloride 50 ml @ 100 mls/hr Q24H IV 03/14/25 00:00 03/14/25 00:10 DC Ceftriaxone Sodium (ROCEphine 1G INJ) 1 gm Q24H IVPB 03/14/25 00:30 03/24/25 00:29 Famotidine (Pepcid 20mg Tab) 20 mg DAILY PO 03/14/25 09:00 04/13/25 08:59 Methylprednisolone Sodium Succinate (Solu-medROL 40MG) 40 mg BID IVP 03/14/25 09:00 04/13/25 08:59 Nicotine (Nicoderm) 14 mg DAILY TD 03/15/25 22:00 04/14/25 21:59 Ondansetron HCl (zoFRAN 4MG INJ) 4 mg Q6H PRN IV NAUSEA/VOMITING 03/14/25 00:00 04/13/25 00:00 Sodium Chloride 1,000 ml @ 100 mls/hr Q10H IV 03/14/25 00:00 04/13/25 00:00 DIAGNOSTICS / RADIOLOGY: [place] [address] [address] IMAGING REPORT Signed PATIENT: CHETNA SORIANO MR#: [id number] : 1955 SEX: M AGE: 69 LOCATION: [facility] ORDER 51 STATUS: [facility] REPORT#: [id number] SERVICE 50 REASON: COUGH ORDERING PHYSICIAN: MOI STARKS MD PROCEDURE: CXR1VW - CHEST 1VW EXAM: CR Chest, 1 View. CLINICAL HISTORY: COUGH COMPARISON: None provided. FINDINGS: LUNGS: Moderate left basilar infiltrate. Pneumonia likely Emphysematous lung changes PLEURAL SPACES: Left pleural effusion MEDIASTINUM: Cardiac size and mediastinal contours within normal limits. BONES: No acute osseous abnormality. IMPRESSION: 1. Moderate left basilar infiltrate. Pneumonia likely 2. Left pleural effusion 3. Emphysematous lung changes /[place] DICTATED BY: KORY WAYNE MD DATE: 03/13/252026 ELECTRONICALLY SIGNED BY: KORY WAYNE MD DATE: 03/13/252026 [facility] [address] [place] [address] IMAGING REPORT Signed PATIENT: CHETNA SORIANO MR#: [id number] : 1955 SEX: M AGE: 69 LOCATION: [facility] ORDER 35 STATUS: REG ER REPORT#: [id number] SERVICE 32 REASON: swelling ORDERING PHYSICIAN: BRENT BELL PROCEDURE: VENOUS UNI - US VENOUS DOPPLER UNILATERAL EXAM: US for Deep Venous Thrombosis, right lower Extremity. CLINICAL HISTORY: Leg Pain and Swelling TECHNIQUE: Real-time ultrasound scan of the veins of the right ower extremity with color Doppler flow, spectral waveform analysis and compression. COMPARISON: None provided. FINDINGS: DEEP VEINS: The common femoral, superficial femoral, and popliteal veins are echolucent and compressible. There is normal color Doppler flow throughout. The visualized calf veins appear patent. SOFT TISSUES: No popliteal fossa cyst or other abnormalities. IMPRESSION: No deep venous thrombosis evident on right lower extremity examination. /[place] DICTATED BY: KORY WAYNE MD DATE: 03/13/252127 ELECTRONICALLY SIGNED BY: KORY WAYNE MD DATE: 03/13/252127 [place] [address] IMAGING REPORT Signed PATIENT: CHETNA SORIANO MR#: [id number] : 1955 SEX: M AGE: 69 LOCATION: [facility] ORDER 04 STATUS: REG ER REPORT#: [id number] SERVICE 03 REASON: right foot discoloration ORDERING PHYSICIAN: BRENT BELL PROCEDURE: ART U LE - US ARTERIAL UNILA LOW EXT DUPL EXAMINATION: DUPLEX ULTRASOUND EXAMINATION OF THE RIGHT LOWER EXTREMITY ARTERIES. CLINICAL HISTORY: Right foot discoloration. COMPARISON: None. FINDINGS: Peak systolic velocities within the right lower arteries are as follows: Common femoral artery: 186 cm/s. Superficial femoral artery: 78 cm/s at proximal, 90 cm/s at mid, and 42 cm/s at distal segments. Popliteal artery: 59 cm/s at proximal and 39 cm/s at distal segments. Posterior tibial artery: 11 cm/s. Anterior tibial artery: 46 cm/s. Dorsalis pedis artery: No flow. The right lower limb arteries demonstrate biphasic waveforms in common femoral, superficial femoral and monophasic in the remainder of the arteries. There are Atherosclerotic changes, characterised by multifocal atherosclerotic plaques and intimal wall thickening, in the right lower limb arteries. IMPRESSION: atherosclerotic changes in the right lower limb arteries. The right lower limb arteries demonstrate biphasic waveforms in common femoral, superficial femoral and monophasic in the remainder of the arteries. Increased velocity in the right common femoral artery. No flow in the dorsalis pedis artery. Recommend CT or MR angiogram. /[place] DICTATED BY: KORY WAYNE MD DATE: 03/13/252145 ELECTRONICALLY SIGNED BY: KORY WAYNE MD DATE: 03/13/252145 ASSESSMENT: Sepsis due to community-acquired pneumonia POA COPD exacerbation POA Acute respirsatory failure POA Acute anemia POA Hyponatremia POA Hypochloremia POA Hypocalcemia POA Elevated BNP POA Peripheral arterial disease POA Hypertension POA Hyperlipidemia POA Nicotine dependence POA PLAN: Sepsis due to community-acquired pneumonia POA COPD exacerbation POA Acute respirsatory failure POA On presentation heart rate 113, temperature 99.9, white count 11.7, lactic acid 1.9 Chest x-ray showed moderate left basilar infiltrates likely pneumonia. Patient was started on IV sodium chloride 100 mL/hour Patient was started on Rocephin IV 1 g Q 24, IV azithromycin Q 24 Patient was started on IV Solu-Medrol 40 mg b.i.d., DuoNebs q.4 White count today 5.2 Pulmonology on board Peripheral arterial disease POA Arterial ultrasound of right lower extremity showed basically from seen, femoral, superficial femoral and monophasic in the remainder of the arteries. No flow in dorsalis pedis artery. Ultrasound of right lower extremity showed no DVT CT abdominal aorta with BLE runoff pending Cardiology was consulted for further recommendation. Hyponatremia POA On presentation sodium 128 IV NaCl at 100 mL/hour Today sodium 130 All home medications have been reconciled and resumed Nicotine patch14 mg for nicotine dependence GI prophylaxis with Pepcid 20 mg ATTESTATION BY PHYSICIAN I have seen and examined the patient. I reviewed the documentation, medical decision making, and treatment plan as noted by the resident physician above. I agree with the findings and plan of care. ROBERT SCHMIDT MD, ADIL SHAH QUADRI MD Mar 14, 2025 10:36
[2025-03-14] MEDS: FAMOTIDINE 20MG TAB PO SCH (10:53)
[2025-03-14] MEDS: Solu-medROL 40MG VIAL IVP SCH (10:54)
--- NOTE | 2025-03-14 10:54 | CONS ---
[facility] CONSULTATION NOTE Date Patient Seen: Mar 14, 2025 Time of Visit: 10:46 Supervising Physician: MJ CHAVARRIA MD Reason for Consultation: PNEUMONIA PRESENT ON ADMISSION Primary Care Physician: [ ] Outpatient Specialists: [ ] Inpatient Consults: [ ] PROBLEM LIST: 1. COMMUNITY ACQUIRED PNEUMONIA , POA 2. CHRONIC SMOKER 3. COPD 4. ALCOHOL DRINKER 5. HYPERLIPIDEMIA 6. HYPERTENSION 7.LUPUS 8.LIVER CIRRHOSIS HPI: Patient is a 69 year old gentleman originally from [facility] who spent winter here at [place], started having SOB , cough, phlegm production, chills and fever reason he decided to presented to ED patient found with sign of Pneumonia in the chest x ray , he is a COPD, hyperlipidemia, HTN, lupus and cirrhosis of liver, states he drinks alcohol on daily basis 1 or 2 but with no withdrawal symptoms when he stops drinking for several days, he is a smoker as well 1 pack daily, patient has been explained he will need to continue with antibiotics and nebulizer treatments. PAST MEDICAL HX: see above PAST SURGICAL HX: noncontributory SOCIAL HISTORY: No tobacco, ETOH, or illicit drug use Coded Allergies: No Known Drug Allergies (Unverified Allergy, Unknown, 04/25/24) REVIEW OF SYSTEMS: 12 point ROS reviewed with patient. Pertinent positives mentioned above. Otherwise negative. PHYSICAL EXAM: GENERAL: alert, weak, awake oriented x 3 HEENT: EOMI, Sclera non icteric, moist mucosa NECK: Supple, no JVD, trachea midline LUNGS: Clear breath sounds bilaterally. No wheezes. Decreased breath sound left side. HEART: Regular rate and rhythm. Normal S1 and S2, without murmurs ABD: Abdomen soft, nontender. Bowel sounds present EXT: No clubbing cyanosis or edema NEURO: Alert and oriented to person, follows commands Vital Signs (last 8hr) Date Time Temp Pulse Resp B/P (MAP) Pulse Ox O2 Delivery O2 Flow Rate FiO2 03/14/25 10:36 75 20 03/14/25 10:35 75 20 N/Cannula Low lpm 2.0 03/14/25 07:16 97.9 93 16 158/76 91 Nasal Cannula 2.0 03/14/25 06:20 81 20 03/14/25 06:20 81 20 N/Cannula Low lpm 2.0 03/14/25 04:00 98.1 98 18 169/69 Nasal Cannula 2.0 03/14/25 03:30 170/69 LABS: Hematology Labs: Test 03/14/25 07:58 03/13/25 18:41 Range/Units White Blood Count 5.2 # 4.8-10.8 K/uL Red Blood Count 4.44 L 4.50-6.20 MIL/uL Hemoglobin 14.4 14.0-18.0 g/dL Hematocrit 42.1 42-54 % Mean Corpuscular Volume 94.8 79-99 fL Mean Corpuscular Hemoglobin 32.4 27.0-33.0 pg Mean Corpuscular Hemoglobin Concent 34.2 32.0-36.0 g/dL Red Cell Distribution Width 13.7 11.0-15.5 % Platelet Count 151 130-400 K/uL Mean Platelet Volume 11.7 H 7.5-10.5 fL Nucleated Red Blood Cells 0.0 0.0-0.19 % Immature Granulocyte % (Auto) 0.4 0-1 % Neutrophils (%) (Auto) 87.0 H 40.0-77.0 % Lymphocytes (%) (Auto) 8.0 L 21.0-51.0 % Monocytes (%) (Auto) 4.3 3.0-13.0 % Eosinophils (%) (Auto) 0.1 0.0-8.0 % Basophils (%) (Auto) 0.2 0.0-5.0 % Neutrophils # (Auto) 10.2 H 1.8-7.7 K/uL Lymphocytes # (Auto) 0.9 L 1.0-4.8 K/uL Monocytes # (Auto) 0.5 0.1-1.0 K/uL Eosinophils # (Auto) 0.01 0.00-0.70 K/uL Basophils # (Auto) 0.02 0.00-0.20 K/uL Absolute Immature Granulocyte (auto 0.05 0-1 K/uL White Cell Morphology Comment See comments Chemistry Labs: Test 03/14/25 07:58 03/13/25 18:41 Range/Units Sodium Level 130 L 136-145 mmol/L Potassium Level 4.0 3.5-5.1 mmol/L Chloride Level 96 L 101-111 mmol/L Carbon Dioxide Level 27 21-32 mmol/L Blood Urea Nitrogen 10 7-18 mg/dL Creatinine 0.7 0.5-1.3 mg/dL Glomerular Filtration Rate Calc 100 >90 mL/min Random Glucose 155 #H 70-105 mg/dL Total Calcium 8.4 L 8.5-10.1 mg/dL Total Bilirubin 0.4 0.2-1.0 mg/dL Aspartate Amino Transf (AST/SGOT) 28 10-37 U/L Alanine Aminotransferase (ALT/SGPT) 18 12-78 U/L Alkaline Phosphatase 103 50-136 U/L C-Reactive Protein, Quantitative 79.50 H 0.5-3.0 mg/L Total Protein 7.1 6.0-8.3 g/dL Albumin 2.6 L 3.5-5.0 g/dL Lactic Acid Level 1.9 0.8-2.5 mmol/L Total Creatine Kinase 132 21-232 U/L Troponin I High Sensitivity 29 4-75 ng/L B-Type Natriuretic Peptide 180 H 0-100 pg/mL Coagulation Labs: Test 03/13/25 20:28 Range/Units Prothrombin Time 12.2 H 9.6-11.6 SEC Prothromb Time International Ratio 1.17 H 0.85-1.15 Activated Partial Thromboplast Time 37.6 H 26.3-35.5 SEC DIAGNOSTICS / RADIOLOGY RESULTS: [ ] PLAN NEURO: Minimize central acting medications as possible. Maintain fall precautions, adequate lighting during the day PULMONARY: Supplemental 02 as needed. Maintain aspiration precautions at all times CARDIOVASCULAR: Follow hemodynamics. Vital signs per facility protocol GI & NUTRITION: Continue with nutritional support. Continue stool softeners and laxatives as needed. KIDNEYS & ELECTROLYTES: Strict monitoring of intake, output and overall fluid balance. Avoid nephrotoxic medications to the extent possible. Medications to be dosed according to renal function. Monitor electrolytes and replace as needed ENDOCRINE: Maintain blood glucose between 100-180 at all times. Hypoglycemia protocol in place INFECTIOUS DISEASE: Trend temperature, WBC and procalcitonin level Follow cultures, deescalate antibiotics as soon as possible. Panculture if new onset fever ONCOLOGY/HEMATOLOGY/COAGULATION: Monitor for s/s of bleeding Monitor hemoglobin, coagulation studies as needed SKIN: Pressure ulcer prevention per facility protocol Specialty mattress ORTHO/REHAB: Continue PT/OT Prophylaxis: Continue GI and DVT prophylaxis Code Status: Full Resuscitation Disposition: TBD Other: Total patient care time 35 minutes excluding all procedures. ATTESTATION BY PHYSICIAN Documentation assistance provided by a scribe, information recorded by the scribe was done at my direction and has been reviewed and validated by me." SARAH CHAVARRIA MD I personally scribed for MJ CHAVARRIA MD ([email or web address]) on 03/14/25 at 10:54. Electronically submitted by Nadine Marte ([id number]). MJ CHAVARRIA MD Mar 14, 2025 10:54
--- NOTE | 2025-03-14 11:23 | NUR ---
CARDIOLOGY CONSULT ATTEMPTED TO CALL [facility] AT THIS TIME FOR CONSULT AT [phone], NO ANSWER.
--- NOTE | 2025-03-14 11:25 | NUR ---
DCP:HOME Pt is a [place] from [place]. Pt lives with his . pt does use a cane at home to ambulate. pt denies having a provider or home health services. Pt does not have a local PCP, states that only sees his doctor from [place]. At [place] pt will want to go home and family can assist with transportation.
--- NOTE | 2025-03-14 13:43 | NUR ---
CARDIOLOGY CONSULT called [facility] at [phone] at this time and spoke with Kaelyn, information was provided regarding consult and will notify online advertising manager.
--- NOTE | 2025-03-14 14:08 | CONS ---
[facility] CARDIOLOGY CONSULTATION REPORT Cardiology consultation note dictated for Wing Bernardo MD Date Patient Seen: Mar 14, 2025 Time of Visit: 14:07 Reason for Consultation: PAD History of Present Illness: That is 69-year-old male from [place] with a past medical history of spinal ablation therapy, COPD, active smoker of 1ppd, hypertension, hyperlipidemia, atrial arrhythmia unknown type on chronic anticoagulation with Eliquis, lupus, liver cirrhosis, PAD and possible peripheral angiogram vs venogram who presented to the ED with complaints of a productive cough, nasal congestion, and general body weakness for two days prior to arrival. He was found to have left lower lobe pneumonia and has been receiving IV ABXs. Cardiology has been consulted for PAD. The patient is a poor historian and is unable to provide a detailed cardiac history. He has listed on his home medication list Cardizem, Digoxin and Eliquis, but he is unaware of having any arrhythmias. Telemetry reporting sinus tachycardia with PACs heart rate in the 100s. EKG on admission demonstrated sinus tachycardia with a hr of 106bpm, PACs, RBBB, and 1mm ST depression in lead II. His lower extremities reveal chronic PAD changes such as hyperpigmentation, dry ulcers to his right second and fifth toes, lack of hair, brittle toe nails and are cool to touch. Unable to palpate bilateral AT or PT pulses. He denies lower extremity pain. Right lower extremity arterial Doppler 03/13/2025 revealed biphasic waveforms in the common femoral and superficial femoral arteries with monophasic waveform in the remainder of the arteries, and no flow in the right dorsalis pedis artery. A CT Abd Aorta with BLE runoff is pending. The patient states he wants to go home and would not like any further workup of his lower extremities if it will keep him hospitalized during [place]. He states he was in the beginning stages of a PAD workup in [place] with his primary research development director. He adds he will be in [place] for the next six months and can follow-up with a research development director locally. Past Medical History: As per HPI and summarized below Past Surgical History: Spinal ablations Family History: The patient's mother and father had myocardial infarctions in their 50s. Social History: The patient lives with his . Habits: The patient denies illicit drug use but does admit to cigarettes, smoking 1 pack per day and on occasion alcohol consumption. Home Meds: Eliquis 5 mg b.i.d. Digoxin 125 mcg daily Diltiazem ER 120 mg daily Atorvastatin 40 mg daily Duloxetine 60 mg daily Ferrous fumarate 300 mg daily Trelegy Ellipta 100-62.5-25, 1 puff inhaled daily Folic acid 0.8 mg daily Hydroxychloroquine 200 mg b.i.d. Pantoprazole 40 mg b.i.d. Pregabalin 150 mg t.i.d. Valacyclovir 500 mg b.i.d. Oxycodone 10 mg,1-2 tabs b.i.d. p.r.n. Current Meds: Medications Dose Ordered Sig/Carmen Start Time Stop Time Status Last Admin Acetaminophen 650 mg Q6H PRN 03/14/25 00:00 04/13/25 00:00 Acetaminophen 650 mg Q4H PRN 03/14/25 00:00 04/13/25 00:00 Ondansetron HCl 4 mg Q6H PRN 03/14/25 00:00 04/13/25 00:00 Albuterol 1 udvial [id number] 03/14/25 02:00 04/13/25 01:59 03/14/25 14:02 Famotidine 20 mg DAILY 03/14/25 09:00 04/13/25 08:59 03/14/25 10:53 Azithromycin 250 ml @ 250 mls/hr Q24H 03/14/25 00:00 03/24/25 00:00 Sodium Chloride 1,000 ml @ 100 mls/hr Q10H 03/14/25 00:00 04/13/25 00:00 Nicotine 14 mg DAILY 03/15/25 22:00 04/14/25 21:59 Ceftriaxone Sodium 1 gm Q24H 03/14/25 00:30 03/24/25 00:29 Methylprednisolone Sodium Succinate 40 mg BID 03/14/25 09:00 04/13/25 08:59 03/14/25 10:54 Apixaban 5 mg BID 03/14/25 21:00 04/13/25 20:59 Atorvastatin Calcium 40 mg DAILY 03/15/25 09:00 04/14/25 08:59 Digoxin 125 mcg AM 03/15/25 09:00 04/14/25 08:59 Diltiazem HCl 120 mg HS 03/14/25 21:00 04/13/25 20:59 Ferrous Fumarate 324 mg AM 03/15/25 09:00 04/14/25 08:59 Hydroxychloroquine Sulfate 200 mg BID 03/14/25 21:00 03/28/25 20:59 Valacyclovir HCl 500 mg BID 03/14/25 21:00 04/13/25 20:59 Diltiazem HCl 240 mg DAILY 03/15/25 09:00 04/14/25 08:59 Duloxetine HCl 60 mg DAILY 03/15/25 09:00 04/14/25 08:59 Home Med (Fluticasone/ Umeclidin/ Vilan... DAILY 03/15/25 09:00 04/14/25 08:59 Folic Acid 1 mg DAILY 03/15/25 09:00 04/14/25 08:59 Pregabalin 150 mg TID 03/14/25 14:00 04/13/25 13:59 Review of Systems: CONST: No fever, fatigue, or weight changes. EYES: No recent vision problems. ENT: No congestion, ear pain, or sore throat. C/V: No chest pain, palpitations, or edema. RESP: No cough, congestion, wheezing or shortness of breath. GI: No abdominal pain, nausea, vomiting, constipation, or diarrhea. : No incontinence or dysuria. SKIN: No rash. NEURO: No headache, focal numbness or weakness, dizziness, or seizures. PSYCH: No depression or anxiety. HEME: No abnormal bruising or bleeding. LYMPH: No swollen glands. Physical Examination: GENERAL: No acute distress. HEAD: Normal with no signs of head trauma. EYES: Conjunctiva and sclera normal. ENT: Hearing grossly intact, normal oropharynx. NECK: Supple without JVD. Normal carotid upstrokes without bruits. LUNGS: Diminished breath sounds to bases bilaterally. HEART: Normal rate and rhythm. Normal S1 and S2 without murmurs, gallop or rub. VASC: Unable to palpate bilateral JORJE or PT pulses. ABD: Bowel sounds normal, soft, nontender, no masses, no organomegaly. No audible bruits. : Not examined LYMPH: No lymphadenopathy noted. EXT: No clubbing, cyanosis or edema. SKIN: Bilateral lower extremities with hyperpigmentation noted. Dry ulcerations to right 2nd and 5th toe. NEURO: Awake, alert, and oriented x3. No focal sensory or strength deficits noted. Vital Signs (last 8hr) Date Time Temp Pulse Resp B/P (MAP) Pulse Ox O2 Delivery O2 Flow Rate FiO2 03/14/25 12:10 98.1 94 16 154/70 92 Nasal Cannula 2.0 03/14/25 10:36 75 20 03/14/25 10:35 75 20 N/Cannula Low lpm 2.0 28 03/14/25 08:00 91 Nasal Cannula* 1 24 03/14/25 07:16 97.9 93 16 158/76 91 Nasal Cannula 2.0 03/14/25 06:20 81 20 03/14/25 06:20 81 20 N/Cannula Low lpm 2.0 28 Laboratory: Hematology Labs: Test 03/14/25 07:58 03/13/25 18:41 Range/Units White Blood Count 5.2 # 4.8-10.8 K/uL Red Blood Count 4.44 L 4.50-6.20 MIL/uL Hemoglobin 14.4 14.0-18.0 g/dL Hematocrit 42.1 42-54 % Mean Corpuscular Volume 94.8 79-99 fL Mean Corpuscular Hemoglobin 32.4 27.0-33.0 pg Mean Corpuscular Hemoglobin Concent 34.2 32.0-36.0 g/dL Red Cell Distribution Width 13.7 11.0-15.5 % Platelet Count 151 130-400 K/uL Mean Platelet Volume 11.7 H 7.5-10.5 fL Nucleated Red Blood Cells 0.0 0.0-0.19 % Immature Granulocyte % (Auto) 0.4 0-1 % Neutrophils (%) (Auto) 87.0 H 40.0-77.0 % Lymphocytes (%) (Auto) 8.0 L 21.0-51.0 % Monocytes (%) (Auto) 4.3 3.0-13.0 % Eosinophils (%) (Auto) 0.1 0.0-8.0 % Basophils (%) (Auto) 0.2 0.0-5.0 % Neutrophils # (Auto) 10.2 H 1.8-7.7 K/uL Lymphocytes # (Auto) 0.9 L 1.0-4.8 K/uL Monocytes # (Auto) 0.5 0.1-1.0 K/uL Eosinophils # (Auto) 0.01 0.00-0.70 K/uL Basophils # (Auto) 0.02 0.00-0.20 K/uL Absolute Immature Granulocyte (auto 0.05 0-1 K/uL White Cell Morphology Comment See comments Chemistry Labs: Test 03/14/25 07:58 03/14/25 07:38 03/13/25 18:41 Range/Units Sodium Level 130 L 136-145 mmol/L Potassium Level 4.0 3.5-5.1 mmol/L Chloride Level 96 L 101-111 mmol/L Carbon Dioxide Level 27 21-32 mmol/L Blood Urea Nitrogen 10 7-18 mg/dL Creatinine 0.7 0.5-1.3 mg/dL Glomerular Filtration Rate Calc 100 >90 mL/min Random Glucose 155 #H 70-105 mg/dL Total Calcium 8.4 L 8.5-10.1 mg/dL Total Bilirubin 0.4 0.2-1.0 mg/dL Aspartate Amino Transf (AST/SGOT) 28 10-37 U/L Alanine Aminotransferase (ALT/SGPT) 18 12-78 U/L Alkaline Phosphatase 103 50-136 U/L C-Reactive Protein, Quantitative 79.50 H 0.5-3.0 mg/L Total Protein 7.1 6.0-8.3 g/dL Albumin 2.6 L 3.5-5.0 g/dL Procalcitonin < 0.05 L 0.05-0.5 ng/mL Lactic Acid Level 1.9 0.8-2.5 mmol/L Total Creatine Kinase 132 21-232 U/L Troponin I High Sensitivity 29 4-75 ng/L B-Type Natriuretic Peptide 180 H 0-100 pg/mL Coagulation Labs: Test 03/13/25 20:28 Range/Units Prothrombin Time 12.2 H 9.6-11.6 SEC Prothromb Time International Ratio 1.17 H 0.85-1.15 Activated Partial Thromboplast Time 37.6 H 26.3-35.5 SEC Diagnostics / Radiology: Impression and Plan: PAD Community acquired pneumonia Spinal ablation therapy COPD Active smoker of 1ppd Hypertension Hyperlipidemia Atrial arrhythmia unknown type on chronic anticoagulation with Eliquis Lupus Liver cirrhosis PAD and possible peripheral angiogram vs venogram PAD Dry ulcers to his right second and fifth toes Right lower extremity arterial Doppler 03/13/2025 revealed biphasic waveforms in the common femoral and superficial femoral arteries with monophasic waveform in the remainder of the arteries, and no flow in the right dorsalis pedis artery. -CT Abd Aorta with BLE runoff is pending. -The patient states he wants to go home and would not like any further workup of his lower extremities if it will keep him hospitalized during [place]. He adds he will be in [place] for the next six months and can follow-up with a research development director locally. Addendum: The patient does not have open wounds at this time but has dry ulcers. I suspect he does indeed have peripheral arterial disease but he is experiencing no significant claudication and wishes to be worked up as an outpatient. He can follow up with me in 1-2 weeks. ATTESTATION BY PHYSICIAN I have seen and examined the patient. I reviewed the documentation, medical decision making, and treatment plan as noted by the mid-level provider above. I agree with the findings and plan of care. WING BERNARDO MD, [facility] Mar 14, 2025 14:08 WING BERNARDO MD Mar 14, 2025 19:01
--- NOTE | 2025-03-14 20:00 | NUR ---
PAIN MEDICATION Patient oxycodone was discontinued earlier today. Patient reports that he has been taking this pain medication for a very long time and that he needs it. at bedside and has left to go and steel pickler his pain medication. call center operations manager, China Sullivan notified. Instructed to call her back once returns with medication. printer small print shop nurse notified.
[2025-03-14] MEDS ORDERED: IOHEXOL-350 50ML VIAL IV ONE (21:03)
[2025-03-14] MEDS ORDERED: IOHEXOL 350 MG/ML 100ML INFUS..BTL IV ONE (21:03)
[2025-03-15] VITALS (17 sets, daily range): BP systolic 129–167; BP diastolic 61–87; PULSE 62–120; RESP 16–20; TEMP 97.8–98.1; O2SAT 93–99
--- NOTE | 2025-03-15 02:26 | HMCIMG ---
EXAM: US for Deep Venous Thrombosis, left Lower Extremity. CLINICAL HISTORY: Leg Pain and Swelling TECHNIQUE: Real-time ultrasound scan of the veins of the left lower extremity with color Doppler flow, spectral waveform analysis, and compression. COMPARISON: None provided. FINDINGS: DEEP VEINS: The common femoral, superficial femoral, and popliteal veins are echolucent and compressible. There is normal color Doppler flow throughout. The visualized calf veins appear patent. SOFT TISSUES: No popliteal fossa cyst or other abnormalities. Enlarged reactive lymph node in the left inguinal region measuring 1.4 x 0.5 cm. IMPRESSION: No deep venous thrombosis evident on left lower extremity examination. /Steffen
[2025-03-15 04:19] LABS: NUCLEATED RED BLOOD CELLS 0.0 % (0.0-0.19); PLATELET COUNT (AUTO) 150.0 K/uL (130-400); RED BLOOD CELL COUNT(AUTO) 3.96 MIL/uL (4.50-6.20); RED CELL DISTRIBUTION WIDTH 13.5 % (11.0-15.5); WHITE BLOOD COUNT (AUTO) 8.9 K/uL (4.8-10.8)
[2025-03-15 04:26] LABS: CREATININE 0.6 mg/dL (0.5-1.3); GLOMERULAR FILTR. RATE CALC 104.0 mL/min (>90); GLUCOSE,RANDOM 145.0 mg/dL (70-105); SODIUM SERUM 135.0 mmol/L (136-145); UREA NITROGEN, BLOOD 11.0 mg/dL (7-18)
--- NOTE | 2025-03-15 07:11 | EKG ---
[facility] Test Date: 2025-03-14 Test Time: 16:31:31 Pat Name: CHETNA SORIANO Department: [facility] Room: 409 1 Gender: M Open [employer] Liner: Stef ECKERT : 1955 Requested By: ALISTAIR JACKSON Order Number: [id number] Reading MD: Nikolas Watters Measurements Intervals Marydel Rate: 129 P: 74 WV: 130 QRS: 85 QRSD: 136 T: 7 QT: 338 QTc: 495 Interpretive Statements Sinus tachycardia with premature atrial complexes Right bundle branch block Compared to ECG 03/13/2025 19:20:58 Possible ischemia no longer present Electronically Signed On 03-15-2025 16:15:36 SURGERY TECHNICIAN by Nikolas Watters Please click the below link to view image of tracing.
--- NOTE | 2025-03-15 07:49 | NUR ---
PATIENT REQUESTING TO BE DISCHARGED TO HOME Patient very agitated this morning. Continually insisting that he cannot stay here any longer and would like to be discharged and go home. Multiple attempts to get up out of bed unassisted. call or contact centre coach hospitalist paged through answering service to notify of situation. Pending return call. Patient room in front of nursing station, door is open, bed alarm is active.
[2025-03-15] MEDS: (Fluticasone/Umeclidin/Vilanter (Trelegy Ellipta 100-62.5- IH SCH (08:27)
[2025-03-15] MEDS: FERROUS FUMARATE 324 MG TABLET PO SCH (08:32)
--- NOTE | 2025-03-15 09:23 | NUR ---
AGITATION, SINUS TACHCARDIA, FREQUENT PACs Cardiology paged regarding findings reported by telemetry. Patient continues to be anxious. Primary team at bedside during reported episode discussing plan of care. Pending return call from Dr. Cristobal. Addendum: 03/15/25 at 1407 by SWETHA WOODARD RN RN pending follow up/return call from special education director Cardiology team
--- NOTE | 2025-03-15 10:56 | PN ---
[facility] PROGRESS NOTE Date of Service: Mar 15, 2025 Time of Service: 10:55 SUBJECTIVE: HISTORY OF PRESENT ILLNESS: This is a 69-year-old male,from [facility] here for a vacation, a poor historian with past medical history of COPD,a heavy smoker,Hyperlipidemia,hypertension,peripheral arterial disease,lupus and liver cirrhosis who present to the ED for complaints of cough,nasal congestion,fever and generalized body weakness started 2 days ago and got worse today. Patient reports he has clots on both legs and patient on Eliquis he said.Patient has left lower extremity swelling and redness discoloration.patient has discoloration to right lower extremity as well. Seen and examined patient in the ER awake,alert and coherent.Patient denies chest pain,palpitation shortness of breath. Latest vital signs temperature 98.4, heart rate 96, blood pressure 129/51 saturation 91% on room air. Labs: WBC 11 with negative left shift of neutrophils 87, hemoglobin 13, hematocrit 39 and platelet count 142. Sodium 128, chloride 95, lactic acid 1.9, total calcium 8.4 BNP 180. Influenza type a and B negative SARS COVID negative group a strep negative. Chest x-ray result revealed moderate left basilar infiltrate. Pneumonia likely. Left pleural effusion. Emphysematous lung changes. Right lower extremity arterial Doppler study result revealed atherosclerotic changes in the right lower limb arteries right lower extremity arteries demonstrate biphasic waveforms in common femoral superficial femoral and monophasic in the remainder of the arteries increased velocity in the right common femoral artery. No flow in the dorsalis pedis artery recommend CT or MR angiogram. Venous Doppler to right lower extremity result revealed no deep venous thrombosis evident on the right lower extremity. While in the ER patient received 1 L NS bolus, Tylenol 1000 mg p.o., Solu-Medrol 80 mg IV, DuoNeb treatment, ceftriaxone 1 g IV and azithromycin IV and nicotine patch 14 mg. patient admitted for further medical management. 03/14/2025: Patient was seen and evaluated bedside this morning, family at bedside. He is awake, alert, oriented x3, saturating 91% with2 L nasal cannula. Patient says that he is feeling good, wants to go home. Morning labs revealed white count 5.2, H&H 14.4, 42.1, CRP 79, BUN 10, creatinine 0.7. Chest X-ray revealed left basilar infiltrates, right lower extremity venous Doppler showed no DVT, right lower extremity arterial ultrasound no flow in the dorsalis pedis artery, waveforms in common femoral, superficial femoral, monophasic and remainder of RLE arteries. We will get CT abdominal aorta with BLE runoff, consult cardiology for further evaluation. Patient is currently on IV Solu- Medrol 40 mg b.i.d., IV Rocephin1 g Q 24, IV azithromycin, DuoNebs q.4 and nicotine patch. REVIEW OF SYSTEMS CONSTITUTIONAL: + fever Denies chills, or night sweats. No unintentional weight loss reported. NEUROLOGICAL: Denies headache, amaurosis fugax, motor weakness, sensory deficit, vertigo/spinning sensation, gait abnormalities, or tremors. ENT: No hearing loss, otalgia, otorrhea, rhinitis, rhinorrhea, hoarseness, or sore throat. CARDIOVASCULAR: Denies any exertional angina, dyspnea on exertion, orthopnea, paroxysmal nocturnal dyspnea, palpitations, life-threatening arrhythmias, claudication. PULMONARY: + productive cough Denies any shortness of breathhemoptysis, pleuritic chest pain. SLEEP: Denies morning headaches, daytime somnolence or napping. Denies difficulty falling asleep, staying asleep, waking from sleep. Denies knowledge of snoring. GASTROINTESTINAL: Denies any type of dysphagia to either liquids or solids. Denies nausea, vomiting, pyrosis, early satiety, abdominal pain, diarrhea, const ipation, or changes in stool consistency or caliber. Denies coffee-ground emesis, hematemesis, hematochezia, or melanotic stools. GENITOURINARY: Denies frequency, urgency, nocturia, hematuria or incontinence (Storage/Irritative symptoms.) Low urinary stream, straining to void, urinary intermittency or hesitancy, splitting of the voiding stream, terminal dribbling. ENDOCRINOLOGIC: Denies polyuria, polydipsia, polyphagia or heat/cold intolerances. HEMATOLOGIC: Denies thrombophilia/previous clots, or coagulopathy/bleeding disorders. ONCOLOGIC: Denies personal history of malignancy. DERMATOLOGIC: Denies rashes or pruritus. PSYCHIATRIC: Denies any suicidal or homicidal ideation. Denies hallucinations. PHYSICAL EXAM GENERAL APPEARANCE: The patient is awake, alert, and oriented, in no acute cardiopulmonary distress. NEUROLOGICAL: Cranial nerves II-XII grossly intact. Motor is 5/5 in bilateral upper and lower extremities proximal to distal. No sensory deficits. HEENT: Face is symmetric. Pupils are equal and reactive. Extraocular movements are intact. NECK: Supple. No JVD. No thyromegaly. No submental, submandibular, pre- /postauricular, occipital or supraclavicular lymphadenopathy. CHEST: Normal chest expansion. No Telemetry. LUNGS: Crackles on left lower lobe CARDIOVASCULAR: Regular. S1 and S2 normal. No appreciable rubs, murmurs or gallops. ABDOMEN: Soft, nontender, and nondistended. There is no rebound, voluntary guarding, or rigidity. : Deferred. No Hawley. EXTREMITIES: Hyperpigmentation, dry ulcers on his right 2nd and 5th toes, lack of hair, brittle toenails, cool to touch SKIN: No skin breakdown. Vital Signs (last 8hr) Date Time Temp Pulse Resp B/P (MAP) Pulse Ox O2 Delivery O2 Flow Rate FiO2 03/15/25 10:43 95 20 03/15/25 10:41 95 20 N/A Room Air 03/15/25 09:35 130 03/15/25 08:35 130 03/15/25 08:25 97.9 62 16 167/87 73 Nasal Cannula 2.0 03/15/25 06:28 92 20 N/A Room Air 03/15/25 06:28 92 20 03/15/25 04:00 97.9 91 20 141/85 95 Nasal Cannula 2.0 03/15/25 03:37 85 20 LABS: Laboratory: Test 03/15/25 03:58 03/14/25 18:30 03/14/25 16:14 03/14/25 07:58 Range/Units White Blood Count 8.9 # 4.8-10.8 K/uL Red Blood Count 3.96 L 4.50-6.20 MIL/uL Hemoglobin 12.9 L 14.0-18.0 g/dL Hematocrit 37.4 L 42-54 % Mean Corpuscular Volume 94.4 79-99 fL Mean Corpuscular Hemoglobin 32.6 27.0-33.0 pg Mean Corpuscular Hemoglobin Concent 34.5 32.0-36.0 g/dL Red Cell Distribution Width 13.5 11.0-15.5 % Platelet Count 150 130-400 K/uL Mean Platelet Volume 11.5 H 7.5-10.5 fL Nucleated Red Blood Cells 0.0 0.0-0.19 % Sodium Level 135 L 136-145 mmol/L Potassium Level 3.5 3.5-5.1 mmol/L Chloride Level 96 L 101-111 mmol/L Carbon Dioxide Level 31 21-32 mmol/L Blood Urea Nitrogen 11 7-18 mg/dL Creatinine 0.6 0.5-1.3 mg/dL Glomerular Filtration Rate Calc 104 >90 mL/min Random Glucose 145 H 70-105 mg/dL Total Calcium 8.4 L 8.5-10.1 mg/dL B-Type Natriuretic Peptide 457 H 0-100 pg/mL Urine Random Sodium 37 L 40-220 mmol/l Thyroid Stimulating Hormone (TSH) 0.23 L 0.36-3.74 uIU/mL Total Bilirubin 0.4 0.2-1.0 mg/dL Aspartate Amino Transf (AST/SGOT) 28 10-37 U/L Alanine Aminotransferase (ALT/SGPT) 18 12-78 U/L Alkaline Phosphatase 103 50-136 U/L C-Reactive Protein, Quantitative 79.50 H 0.5-3.0 mg/L Total Protein 7.1 6.0-8.3 g/dL Albumin 2.6 L 3.5-5.0 g/dL Test 03/14/25 07:38 03/14/25 00:13 03/13/25 20:28 03/13/25 18:41 Range/Units Procalcitonin < 0.05 L 0.05-0.5 ng/mL Urine Color LIGHT-YELLOW YELLOW Urine Appearance CLEAR CLEAR Urine pH 7.0 5.0-8.0 Urine Specific [place] 1.011 1.001-1.031 Urine Protein NEGATIVE NEGATIVE mg/dL Urine Glucose (UA) NEGATIVE NEGATIVE mg/dL Urine Ketones 10 H NEGATIVE mg/dL Urine Occult Blood NEGATIVE NEGATIVE Urine Nitrate NEGATIVE NEGATIVE Urine Bilirubin NEGATIVE NEGATIVE mg/dL Urine Urobilinogen 0.2 0.2-1.0 mg/dL Urine Leukocyte Esterase NEGATIVE NEGATIVE Iron/uL Urine RBC 0-1 0-1 /HPF Urine WBC 0-1 0-1 /HPF Urine Bacteria None None Seen /HPF Prothrombin Time 12.2 H 9.6-11.6 SEC Prothromb Time International Ratio 1.17 H 0.85-1.15 Activated Partial Thromboplast Time 37.6 H 26.3-35.5 SEC Immature Granulocyte % (Auto) 0.4 0-1 % Neutrophils (%) (Auto) 87.0 H 40.0-77.0 % Lymphocytes (%) (Auto) 8.0 L 21.0-51.0 % Monocytes (%) (Auto) 4.3 3.0-13.0 % Eosinophils (%) (Auto) 0.1 0.0-8.0 % Basophils (%) (Auto) 0.2 0.0-5.0 % Neutrophils # (Auto) 10.2 H 1.8-7.7 K/uL Lymphocytes # (Auto) 0.9 L 1.0-4.8 K/uL Monocytes # (Auto) 0.5 0.1-1.0 K/uL Eosinophils # (Auto) 0.01 0.00-0.70 K/uL Basophils # (Auto) 0.02 0.00-0.20 K/uL Absolute Immature Granulocyte (auto 0.05 0-1 K/uL White Cell Morphology Comment See comments Lactic Acid Level 1.9 0.8-2.5 mmol/L Total Creatine Kinase 132 21-232 U/L Troponin I High Sensitivity 29 4-75 ng/L Test 03/13/25 17:52 Range/Units Influenza Type A Antigen Negative For Type A NEGATIVE Influenza Type B Antigen Negative For Type B NEGATIVE SARS-CoV-2, RNA, NAAT NEGATIVE SARS CoV-2 NEGATIVE Group A Streptococcus Rapid negative NEGATIVE Current Medications Medications (Trade) Dose Ordered Sig/Carmen Route PRN Reason Start Time Stop Time Status Last Admin Dose Admin Acetaminophen (TYLenol 325MG TAB) 650 mg Q4H PRN PO MILD PAIN (1-3) 03/14/25 00:00 04/13/25 00:00 Acetaminophen (TYLenol 325MG TAB) 650 mg Q6H PRN PO TEMPERATURE GREATER THAN 101.5 03/14/25 00:00 04/13/25 00:00 Albuterol (DUOneb) 1 udvial [id number] IH 03/14/25 02:00 04/13/25 01:59 03/15/25 10:41 1 UDVIAL Apixaban (EliquIS) 5 mg BID PO 03/14/25 21:00 04/13/25 20:59 03/15/25 08:32 5 MG Atorvastatin Calcium (LIPItor 40MG) 40 mg DAILY PO 03/15/25 09:00 04/14/25 08:59 03/15/25 08:32 40 MG Azithromycin 250 ml @ 250 mls/hr Q24H IV 03/14/25 00:00 03/24/25 00:00 03/15/25 01:20 250 MLS/HR Ceftriaxone Sodium 1 gm/ Sodium Chloride 50 ml @ 100 mls/hr Q24H IV 03/14/25 00:00 03/14/25 00:10 DC Ceftriaxone Sodium (ROCEphine 1G INJ) 1 gm Q24H IVPB 03/14/25 00:30 03/24/25 00:29 03/14/25 23:45 1 GM Digoxin (LANOxin 125mcg) 125 mcg AM PO 03/15/25 09:00 04/14/25 08:59 03/15/25 08:35 125 MCG Diltiazem HCl (CARDIzem 120MG CD) 120 mg HS PO 03/14/25 21:00 04/13/25 20:59 03/14/25 20:45 120 MG Diltiazem HCl (CARDIzem 120MG CD) 240 mg DAILY PO 03/15/25 09:00 04/14/25 08:59 03/15/25 08:31 240 MG Duloxetine HCl (CymbALTA 30 mg CAP) 60 mg DAILY PO 03/15/25 09:00 04/14/25 08:59 03/15/25 08:32 60 MG Famotidine (Pepcid 20mg Tab) 20 mg DAILY PO 03/14/25 09:00 04/13/25 08:59 03/15/25 08:32 20 MG Ferrous Fumarate (Hemocyte) 324 mg AM PO 03/15/25 09:00 04/14/25 08:59 03/15/25 08:32 324 MG Folic Acid (FOLic ACID 1 MG TABLET) 1 mg DAILY PO 03/15/25 09:00 04/14/25 08:59 03/15/25 08:31 1 MG Home Med (Home Medication) (Fluticasone/ Umeclidin/ Vilan... DAILY IH 03/15/25 09:00 04/14/25 08:59 Hydroxychloroquine Sulfate (PLAQuenil 200MG) 200 mg BID PO 03/14/25 21:00 03/28/25 20:59 03/15/25 08:30 200 MG Methylprednisolone Sodium Succinate (Solu-medROL 40MG) 40 mg BID IVP 03/14/25 09:00 04/13/25 08:59 03/15/25 08:32 40 MG Miscellaneous Medication (Oxycodone HCl ) 1 tab BID PRN PO pain 03/14/25 10:30 03/14/25 11:26 DC Miscellaneous Medication (Oxycodone HCl ) 1 tab BID PRN PO pain 03/14/25 10:30 03/14/25 11:26 DC Nicotine (Nicoderm) 14 mg DAILY TD 03/15/25 22:00 03/14/25 16:06 DC Nicotine (Nicoderm) 21 mg Q24H TD 03/15/25 22:00 04/14/25 21:59 Ondansetron HCl (zoFRAN 4MG INJ) 4 mg Q6H PRN IV NAUSEA/VOMITING 03/14/25 00:00 04/13/25 00:00 Oxycodone HCl (ROXicoDONE) 10 mg BID PRN PO SEVERE PAIN (7-10) 03/15/25 00:30 03/22/25 00:29 03/15/25 09:27 10 MG Oxycodone HCl (ROXicoDONE) 20 mg BID PRN PO SEVERE PAIN (7-10) 03/15/25 00:30 03/15/25 00:32 DC Pregabalin (FXUtuz40OL) 150 mg TID PO 03/14/25 14:00 04/13/25 13:59 03/15/25 08:31 150 MG Sodium Chloride 1,000 ml @ 100 mls/hr Q10H IV 03/14/25 00:00 03/14/25 18:54 DC Valacyclovir HCl (ValtREX) 500 mg BID PO 03/14/25 21:00 04/13/25 20:59 03/15/25 08:32 500 MG DIAGNOSTICS / RADIOLOGY: [ ] ASSESSMENT: Sepsis due to community-acquired pneumonia POA COPD exacerbation POA Acute respirsatory failure POA Acute anemia POA Hyponatremia POA Hypochloremia POA Hypocalcemia POA Elevated BNP POA Peripheral arterial disease POA Hypertension POA Hyperlipidemia POA Nicotine dependence POA PLAN: Sepsis due to community-acquired pneumonia POA COPD exacerbation POA Acute respirsatory failure POA On presentation heart rate 113, temperature 99.9, white count 11.7, lactic acid 1.9 Chest x-ray showed moderate left basilar infiltrates likely pneumonia. Patient was started on IV sodium chloride 100 mL/hour Patient was started on Rocephin IV 1 g Q 24, IV azithromycin Q 24 Patient was started on IV Solu-Medrol 40 mg b.i.d., DuoNebs q.4 White count today 5.2 Pulmonology on board Peripheral arterial disease POA Arterial ultrasound of right lower extremity showed basically from seen, femoral, superficial femoral and monophasic in the remainder of the arteries. N o flow in dorsalis pedis artery. Ultrasound of right lower extremity showed no DVT CT abdominal aorta with BLE runoff pending Cardiology was consulted for further recommendation. Hyponatremia POA On presentation sodium 128 IV NaCl at 100 mL/hour Today sodium 130 All home medications have been reconciled and resumed Nicotine patch14 mg for nicotine dependence GI prophylaxis with Pepcid 20 mg ANTOINE SUAZO MD Mar 15, 2025 10:56
--- NOTE | 2025-03-15 11:17 | HMCIMG ---
EXAMINATION: CT ANGIOGRAM OF ABDOMEN AND PELVIS AND RUNOFFS OF THE BILATERAL LOWER EXTREMITIES. CLINICAL HISTORY: Severe peripheral arterial disease COMPARISON: None provided. TECHNIQUE: MDCT angiogram of the abdominal aortic vessels was performed after administration of intravenous contrast. FINDINGS: Abdominal aorta is normal in size and caliber. There are atheromatous wall calcification of the aorta, its branches, iliac arteries, and both lower limb arteries. There is no aneurysm or dissection. There is no critical stenosis or occlusion. The celiac and superior mesenteric arteries are patent with mild stenosis proximally. Bilateral renal arteries are calcified with mild stenosis proximally. There is no critical stenosis or occlusion. The inferior mesenteric artery is normal in caliber. Bifurcation morphology is normal. There is no stenosis or occlusion. The bilateral external iliac arteries are normal in caliber. Their branches are normal, and the bilateral internal iliac arteries are normal; there is no stenosis or occlusion. Multilevel short-segment narrowing of the bilateral common femoral and superficial femoral arteries with narrow caliber flow in the bilateral popliteal and tibio-peroneal arteries. No demonstrable flow in bilateral distal anterior and posterior tibial arteries. The bilateral profunda femoris and popliteal arteries are normal in size and caliber. There is no stenosis or occlusion. There is a small right pleural effusion and moderate left pleural effusion with overlying atelectasis. Within the abdomen and pelvis, the liver is normal in caliber with uniform decreased density; there is a left renal cortical cyst measuring 1.3 x 1.5 x 1.3 cm; gallbladder, pancreas, spleen, adrenal glands, and right kidney are within normal limits; bowel loops are normal in caliber without evidence of obstruction, ileus, or bowel wall thickening, and the appendix is normal; and urinary bladder, prostate, and seminal vesicles appear normal in caliber. The included chest reveals: Moderate left and minimal left pleural effusion. Ground glassing of the lingula and left lower lobe. Centrilobular and paraseptal emphysema of the lungs. There is fatty atrophy of both gastrocnemius muscles. IMPRESSION: Atheromatous wall calcification of the aorta, its branches, iliac arteries, and both lower limb arteries with multilevel short-segment narrowing of the bilateral common femoral and superficial femoral arteries with narrow caliber flow in bilateral popliteal and tibio-peroneal arteries. No demonstrable flow in bilateral distal anterior and posterior tibial arteries. moderate peripheral vascular disease. No acute abdominal or pelvic pathology. Small right pleural effusion and moderate left pleural effusion with overlying atelectasis. /[place]
[2025-03-15] MEDS: NICOTINE 21 MG/ 24 HR PATCH TD SCH (13:18)
--- NOTE | 2025-03-15 14:07 | NUR ---
CARDIOLOGY CONSULT Nurse practitioner, Rose Mcdonough and Dr. Watters present on unit. Cardiology team has signed off and patient is able to complete care in outpatient setting from cardiology standpoint. Primary team contacted via telephone with Cardiology present. Primary team is now aware that cardiology has signed off. Anticipate discharge orders. Patient and spouse notified.
--- NOTE | 2025-03-15 14:21 | DS ---
Discharge Summary [employer]): Cardiology: Dr. Levar Dimas MD Pulmonology: Dr. Suzie Pitt MD CONSULTATION REPORT Name: CHETNA SORIANO Acct: [id number] MR: [id number] : 1955 Admit Date: 03/13/25 ALISTAIR JACKSON [facility] [address] [place] [address] [facility] CARDIOLOGY CONSULTATION REPORT Cardiology consultation note dictated for Cele Cristobal MD Date Patient Seen: Mar 14, 2025 Time of Visit: 14:07 Reason for Consultation: PAD History of Present Illness: That is 69-year-old male from [place] with a past medical history of spinal ablation therapy, COPD, active smoker of 1ppd, hypertension, hyperlipidemia, atrial arrhythmia unknown type on chronic anticoagulation with Eliquis, lupus, liver cirrhosis, PAD and possible peripheral angiogram vs venogram who presented to the ED with complaints of a productive cough, nasal congestion, and general body weakness for two days prior to arrival. He was found to have left lower lobe pneumonia and has been receiving IV ABXs. Cardiology has been consulted for PAD. The patient is a poor historian and is unable to provide a detailed cardiac history. He has listed on his home medication list Cardizem, Digoxin and Eliquis, but he is unaware of having any arrhythmias. Telemetry reporting sinus tachycardia with PACs heart rate in the 100s. EKG on admission demonstrated sinus tachycardia with a hr of 106bpm, PACs, RBBB, and 1mm ST depression in lead II. His lower extremities reveal chronic PAD changes such as hyperpigmentation, dry ulcers to his right second and fifth toes, lack of hair, brittle toe nails and are cool to touch. Unable to palpate bilateral AT or PT pulses. He denies lower extremity pain. Right lower extremity arterial Doppler 03/13/2025 revealed biphasic waveforms in the common femoral and superficial femoral arteries with monophasic waveform in the remainder of the arteries, and no flow in the right dorsalis pedis artery. A CT Abd Aorta with BLE runoff is pending. The patient states he wants to go home and would not like any further workup of his lower extremities if it will keep him hospitalized during [place]. He states he was in the beginning stages of a PAD workup in [place] with his primary sql analyst. He adds he will be in [place] for the next six months and can follow-up with a sql analyst locally. Past Medical History: As per HPI and summarized below Past Surgical History: Spinal ablations Family History: The patient's mother and father had myocardial infarctions in their 50s. Social History: The patient lives with his . Habits: The patient denies illicit drug use but does admit to cigarettes, smoking 1 pack per day and on occasion alcohol consumption. Home Meds: Eliquis 5 mg b.i.d. Digoxin 125 mcg daily Diltiazem ER 120 mg daily Atorvastatin 40 mg daily Duloxetine 60 mg daily Ferrous fumarate 300 mg daily Trelegy Ellipta 100-62.5-25, 1 puff inhaled daily Folic acid 0.8 mg daily Hydroxychloroquine 200 mg b.i.d. Pantoprazole 40 mg b.i.d. Pregabalin 150 mg t.i.d. Valacyclovir 500 mg b.i.d. Oxycodone 10 mg,1-2 tabs b.i.d. p.r.n. Current Meds: Medications Dose Ordered Sig/Carmen Start Time Stop Time Status Last Admin Acetaminophen 650 mg Q6H PRN 03/14/25 00:00 04/13/25 00:00 Acetaminophen 650 mg Q4H PRN 03/14/25 00:00 04/13/25 00:00 Ondansetron HCl 4 mg Q6H PRN 03/14/25 00:00 04/13/25 00:00 Albuterol 1 udvial [id number] 03/14/25 02:00 04/13/25 01:59 03/14/25 14:02 Famotidine 20 mg DAILY 03/14/25 09:00 04/13/25 08:59 03/14/25 10:53 Azithromycin 250 ml @ 250 mls/hr Q24H 03/14/25 00:00 03/24/25 00:00 Sodium Chloride 1,000 ml @ 100 mls/hr Q10H 03/14/25 00:00 04/13/25 00:00 Nicotine 14 mg DAILY 03/15/25 22:00 04/14/25 21:59 Ceftriaxone Sodium 1 gm Q24H 03/14/25 00:30 03/24/25 00:29 Methylprednisolone Sodium Succinate 40 mg BID 03/14/25 09:00 04/13/25 08:59 03/14/25 10:54 Apixaban 5 mg BID 03/14/25 21:00 04/13/25 20:59 Atorvastatin Calcium 40 mg DAILY 03/15/25 09:00 04/14/25 08:59 Digoxin 125 mcg AM 03/15/25 09:00 04/14/25 08:59 Diltiazem HCl 120 mg HS 03/14/25 21:00 04/13/25 20:59 Ferrous Fumarate 324 mg AM 03/15/25 09:00 04/14/25 08:59 Hydroxychloroquine Sulfate 200 mg BID 03/14/25 21:00 03/28/25 20:59 Valacyclovir HCl 500 mg BID 03/14/25 21:00 04/13/25 20:59 Diltiazem HCl 240 mg DAILY 03/15/25 09:00 04/14/25 08:59 Duloxetine HCl 60 mg DAILY 03/15/25 09:00 04/14/25 08:59 Home Med (Fluticasone/ Umeclidin/ Vilan... DAILY 03/15/25 09:00 04/14/25 08:59 Folic Acid 1 mg DAILY 03/15/25 09:00 04/14/25 08:59 Pregabalin 150 mg TID 03/14/25 14:00 04/13/25 13:59 Review of Systems: CONST: No fever, fatigue, or weight changes. EYES: No recent vision problems. ENT: No congestion, ear pain, or sore throat. C/V: No chest pain, palpitations, or edema. RESP: No cough, congestion, wheezing or shortness of breath. GI: No abdominal pain, nausea, vomiting, constipation, or diarrhea. : No incontinence or dysuria. SKIN: No rash. NEURO: No headache, focal numbness or weakness, dizziness, or seizures. PSYCH: No depression or anxiety. HEME: No abnormal bruising or bleeding. LYMPH: No swollen glands. Physical Examination: GENERAL: No acute distress. HEAD: Normal with no signs of head trauma. EYES: Conjunctiva and sclera normal. ENT: Hearing grossly intact, normal oropharynx. NECK: Supple without JVD. Normal carotid upstrokes without bruits. LUNGS: Diminished breath sounds to bases bilaterally. HEART: Normal rate and rhythm. Normal S1 and S2 without murmurs, gallop or rub. VASC: Unable to palpate bilateral JORJE or PT pulses. ABD: Bowel sounds normal, soft, nontender, no masses, no organomegaly. No audible bruits. : Not examined LYMPH: No lymphadenopathy noted. EXT: No clubbing, cyanosis or edema. SKIN: Bilateral lower extremities with hyperpigmentation noted. Dry ulcerations to right 2nd and 5th toe. NEURO: Awake, alert, and oriented x3. No focal sensory or strength deficits noted. Vital Signs (last 8hr) Date Time Temp Pulse Resp B/P (MAP) Pulse Ox O2 Delivery O2 Flow Rate FiO2 03/14/25 12:10 98.1 94 16 154/70 92 Nasal Cannula 2.0 03/14/25 10:36 75 20 03/14/25 10:35 75 20 N/Cannula Low lpm 2.0 28 03/14/25 08:00 91 Nasal Cannula* 1 24 03/14/25 07:16 97.9 93 16 158/76 91 Nasal Cannula 2.0 03/14/25 06:20 81 20 03/14/25 06:20 81 20 N/Cannula Low lpm 2.0 28 Laboratory: Hematology Labs: Test 03/14/25 07:58 03/13/25 18:41 Range/Units White Blood Count 5.2 # 4.8-10.8 K/uL Red Blood Count 4.44 L 4.50-6.20 MIL/uL Hemoglobin 14.4 14.0-18.0 g/dL Hematocrit 42.1 42-54 % Mean Corpuscular Volume 94.8 79-99 fL Mean Corpuscular Hemoglobin 32.4 27.0-33.0 pg Mean Corpuscular Hemoglobin Concent 34.2 32.0-36.0 g/dL Red Cell Distribution Width 13.7 11.0-15.5 % Platelet Count 151 130-400 K/uL Mean Platelet Volume 11.7 H 7.5-10.5 fL Nucleated Red Blood Cells 0.0 0.0-0.19 % Immature Granulocyte % (Auto) 0.4 0-1 % Neutrophils (%) (Auto) 87.0 H 40.0-77.0 % Lymphocytes (%) (Auto) 8.0 L 21.0-51.0 % Monocytes (%) (Auto) 4.3 3.0-13.0 % Eosinophils (%) (Auto) 0.1 0.0-8.0 % Basophils (%) (Auto) 0.2 0.0-5.0 % Neutrophils # (Auto) 10.2 H 1.8-7.7 K/uL Lymphocytes # (Auto) 0.9 L 1.0-4.8 K/uL Monocytes # (Auto) 0.5 0.1-1.0 K/uL Eosinophils # (Auto) 0.01 0.00-0.70 K/uL Basophils # (Auto) 0.02 0.00-0.20 K/uL Absolute Immature Granulocyte (auto 0.05 0-1 K/uL White Cell Morphology Comment See comments Chemistry Labs: Test 03/14/25 07:58 03/14/25 07:38 03/13/25 18:41 Range/Units Sodium Level 130 L 136-145 mmol/L Potassium Level 4.0 3.5-5.1 mmol/L Chloride Level 96 L 101-111 mmol/L Carbon Dioxide Level 27 21-32 mmol/L Blood Urea Nitrogen 10 7-18 mg/dL Creatinine 0.7 0.5-1.3 mg/dL Glomerular Filtration Rate Calc 100 >90 mL/min Random Glucose 155 #H 70-105 mg/dL Total Calcium 8.4 L 8.5-10.1 mg/dL Total Bilirubin 0.4 0.2-1.0 mg/dL Aspartate Amino Transf (AST/SGOT) 28 10-37 U/L Alanine Aminotransferase (ALT/SGPT) 18 12-78 U/L Alkaline Phosphatase 103 50-136 U/L C-Reactive Protein, Quantitative 79.50 H 0.5-3.0 mg/L Total Protein 7.1 6.0-8.3 g/dL Albumin 2.6 L 3.5-5.0 g/dL Procalcitonin < 0.05 L 0.05-0.5 ng/mL Lactic Acid Level 1.9 0.8-2.5 mmol/L Total Creatine Kinase 132 21-232 U/L Troponin I High Sensitivity 29 4-75 ng/L B-Type Natriuretic Peptide 180 H 0-100 pg/mL Coagulation Labs: Test 03/13/25 20:28 Range/Units Prothrombin Time 12.2 H 9.6-11.6 SEC Prothromb Time International Ratio 1.17 H 0.85-1.15 Activated Partial Thromboplast Time 37.6 H 26.3-35.5 SEC Diagnostics / Radiology: Impression and Plan: PAD Community acquired pneumonia Spinal ablation therapy COPD Active smoker of 1ppd Hypertension Hyperlipidemia Atrial arrhythmia unknown type on chronic anticoagulation with Eliquis Lupus Liver cirrhosis PAD and possible peripheral angiogram vs venogram PAD Dry ulcers to his right second and fifth toes Right lower extremity arterial Doppler 03/13/2025 revealed biphasic waveforms in the common femoral and superficial femoral arteries with monophasic waveform in the remainder of the arteries, and no flow in the right dorsalis pedis artery. -CT Abd Aorta with BLE runoff is pending. -The patient states he wants to go home and would not like any further workup of his lower extremities if it will keep him hospitalized during . He adds he will be in [place] for the next six months and can follow-up with a sql analyst locally. Addendum: The patient does not have open wounds at this time but has dry ulcers. I suspect he does indeed have peripheral arterial disease but he is experiencing no significant claudication and wishes to be worked up as an outpatient. He can follow up with me in 1-2 weeks. ATTESTATION BY PHYSICIAN I have seen and examined the patient. I reviewed the documentation, medical decision making, and treatment plan as noted by the mid-level provider above. I agree with the findings and plan of care. CELE CRISTOABL MD, VALERIE L FNP Mar 14, 2025 14:08 CELE CRISTOBAL MD Mar 14, 2025 19:01 Electronically Signed by: ALISTAIR MARY05/15/24 1516 Electronically Co-Signed by: CELE CRISTOBAL MD03/14/25 1901 CONSULTATION REPORT Name: CHETNA SORIANO Acct: [id number] MR: [id number] : 1955 Admit Date: 03/13/25 MJ CHAVARRIA MD [facility] [address] [place] [id number] [facility] CONSULTATION NOTE Date Patient Seen: Mar 14, 2025 Time of Visit: 10:46 Supervising Physician: MJ CHAVARRIA MD Reason for Consultation: PNEUMONIA PRESENT ON ADMISSION Primary Care Physician: [ ] Outpatient Specialists: [ ] Inpatient Consults: [ ] PROBLEM LIST: 1. COMMUNITY ACQUIRED PNEUMONIA , POA 2. CHRONIC SMOKER 3. COPD 4. ALCOHOL DRINKER 5. HYPERLIPIDEMIA 6. HYPERTENSION 7.LUPUS 8.LIVER CIRRHOSIS HPI: Patient is a 69 year old gentleman originally from [facility] who spent winter here at [place], started having SOB , cough, phlegm production, chills and fever reason he decided to presented to ED patient found with sign of Pneumonia in the chest x ray , he is a COPD, hyperlipidemia, HTN, lupus and cirrhosis of liver, states he drinks alcohol on daily basis 1 or 2 but with no withdrawal symptoms when he stops drinking for several days, he is a smoker as well 1 pack daily, patient has been explained he will need to continue with antibiotics and nebulizer treatments. PAST MEDICAL HX: see above PAST SURGICAL HX: noncontributory SOCIAL HISTORY: No tobacco, ETOH, or illicit drug use Coded Allergies: No Known Drug Allergies (Unverified Allergy, Unknown, 04/25/24) REVIEW OF SYSTEMS: 12 point ROS reviewed with patient. Pertinent positives mentioned above. Otherwise negative. PHYSICAL EXAM: GENERAL: alert, weak, awake oriented x 3 HEENT: EOMI, Sclera non icteric, moist mucosa NECK: Supple, no JVD, trachea midline LUNGS: Clear breath sounds bilaterally. No wheezes. Decreased breath sound left side. HEART: Regular rate and rhythm. Normal S1 and S2, without murmurs ABD: Abdomen soft, nontender. Bowel sounds present EXT: No clubbing cyanosis or edema NEURO: Alert and oriented to person, follows commands Vital Signs (last 8hr) Date Time Temp Pulse Resp B/P (MAP) Pulse Ox O2 Delivery O2 Flow Rate FiO2 03/14/25 10:36 75 20 03/14/25 10:35 75 20 N/Cannula Low lpm 2.0 03/14/25 07:16 97.9 93 16 158/76 91 Nasal Cannula 2.0 03/14/25 06:20 81 20 03/14/25 06:20 81 20 N/Cannula Low lpm 2.0 03/14/25 04:00 98.1 98 18 169/69 Nasal Cannula 2.0 03/14/25 03:30 170/69 LABS: Hematology Labs: Test 03/14/25 07:58 03/13/25 18:41 Range/Units White Blood Count 5.2 # 4.8-10.8 K/uL Red Blood Count 4.44 L 4.50-6.20 MIL/uL Hemoglobin 14.4 14.0-18.0 g/dL Hematocrit 42.1 42-54 % Mean Corpuscular Volume 94.8 79-99 fL Mean Corpuscular Hemoglobin 32.4 27.0-33.0 pg Mean Corpuscular Hemoglobin Concent 34.2 32.0-36.0 g/dL Red Cell Distribution Width 13.7 11.0-15.5 % Platelet Count 151 130-400 K/uL Mean Platelet Volume 11.7 H 7.5-10.5 fL Nucleated Red Blood Cells 0.0 0.0-0.19 % Immature Granulocyte % (Auto) 0.4 0-1 % Neutrophils (%) (Auto) 87.0 H 40.0-77.0 % Lymphocytes (%) (Auto) 8.0 L 21.0-51.0 % Monocytes (%) (Auto) 4.3 3.0-13.0 % Eosinophils (%) (Auto) 0.1 0.0-8.0 % Basophils (%) (Auto) 0.2 0.0-5.0 % Neutrophils # (Auto) 10.2 H 1.8-7.7 K/uL Lymphocytes # (Auto) 0.9 L 1.0-4.8 K/uL Monocytes # (Auto) 0.5 0.1-1.0 K/uL Eosinophils # (Auto) 0.01 0.00-0.70 K/uL Basophils # (Auto) 0.02 0.00-0.20 K/uL Absolute Immature Granulocyte (auto 0.05 0-1 K/uL White Cell Morphology Comment See comments Chemistry Labs: Test 03/14/25 07:58 03/13/25 18:41 Range/Units Sodium Level 130 L 136-145 mmol/L Potassium Level 4.0 3.5-5.1 mmol/L Chloride Level 96 L 101-111 mmol/L Carbon Dioxide Level 27 21-32 mmol/L Blood Urea Nitrogen 10 7-18 mg/dL Creatinine 0.7 0.5-1.3 mg/dL Glomerular Filtration Rate Calc 100 >90 mL/min Random Glucose 155 #H 70-105 mg/dL Total Calcium 8.4 L 8.5-10.1 mg/dL Total Bilirubin 0.4 0.2-1.0 mg/dL Aspartate Amino Transf (AST/SGOT) 28 10-37 U/L Alanine Aminotransferase (ALT/SGPT) 18 12-78 U/L Alkaline Phosphatase 103 50-136 U/L C-Reactive Protein, Quantitative 79.50 H 0.5-3.0 mg/L Total Protein 7.1 6.0-8.3 g/dL Albumin 2.6 L 3.5-5.0 g/dL Lactic Acid Level 1.9 0.8-2.5 mmol/L Total Creatine Kinase 132 21-232 U/L Troponin I High Sensitivity 29 4-75 ng/L B-Type Natriuretic Peptide 180 H 0-100 pg/mL Coagulation Labs: Test 03/13/25 20:28 Range/Units Prothrombin Time 12.2 H 9.6-11.6 SEC Prothromb Time International Ratio 1.17 H 0.85-1.15 Activated Partial Thromboplast Time 37.6 H 26.3-35.5 SEC DIAGNOSTICS / RADIOLOGY RESULTS: [ ] PLAN NEURO: Minimize central acting medications as possible. Maintain fall precautions, adequate lighting during the day PULMONARY: Supplemental 02 as needed. Maintain aspiration precautions at all times CARDIOVASCULAR: Follow hemodynamics. Vital signs per facility protocol GI & NUTRITION: Continue with nutritional support. Continue stool softeners and laxatives as needed. KIDNEYS & ELECTROLYTES: Strict monitoring of intake, output and overall fluid balance. Avoid nephrotoxic medications to the extent possible. Medications to be dosed according to renal function. Monitor electrolytes and replace as needed ENDOCRINE: Maintain blood glucose between 100-180 at all times. Hypoglycemia protocol in place INFECTIOUS DISEASE: Trend temperature, WBC and procalcitonin level Follow cultures, deescalate antibiotics as soon as possible. Panculture if new onset fever ONCOLOGY/HEMATOLOGY/COAGULATION: Monitor for s/s of bleeding Monitor hemoglobin, coagulation studies as needed SKIN: Pressure ulcer prevention per facility protocol Specialty mattress ORTHO/REHAB: Continue PT/OT Prophylaxis: Continue GI and DVT prophylaxis Code Status: Full Resuscitation Disposition: TBD Other: Total patient care time 35 minutes excluding all procedures. ATTESTATION BY PHYSICIAN Documentation assistance provided by a scribe, information recorded by the scribe was done at my direction and has been reviewed and validated by me." SARAH CHAVARRIA MD I personally scribed for MJ CHAVARRIA MD ([email or web address]) on 03/14/25 at 10:54. Elec tronically submitted by Nadine Marte ([id number]). MJ CHAVARRIA MD Mar 14, 2025 10:54 Electronically Signed by: MJ CHAVARRIA MD03/14/25 1318 Electronically Co-Signed by: Procedure(s): [facility] [address] [place] [address] [id number] IMAGING REPORT Signed PATIENT: CHETNA SORIANO MR#: [id number] : 1955 SEX: M AGE: 69 LOCATION: [facility] ORDER 51 STATUS: REG ER REPORT#: [id number] SERVICE 50 REASON: COUGH ORDERING PHYSICIAN: MOI STARKS MD PROCEDURE: CXR1VW - CHEST 1VW EXAM: CR Chest, 1 View. CLINICAL HISTORY: COUGH COMPARISON: None provided. FINDINGS: LUNGS: Moderate left basilar infiltrate. Pneumonia likely Emphysematous lung changes PLEURAL SPACES: Left pleural effusion MEDIASTINUM: Cardiac size and mediastinal contours within normal limits. BONES: No acute osseous abnormality. IMPRESSION: 1. Moderate left basilar infiltrate. Pneumonia likely 2. Left pleural effusion 3. Emphysematous lung changes /Katy DICTATED BY: KORY WAYNE MD DATE: 03/13/252026 ELECTRONICALLY SIGNED BY: KORY WAYNE MD DATE: 03/13/252026 [facility] [address] [place] [address] [id number] IMAGING REPORT Signed PATIENT: CHETNA SORIANO MR#: [id number] : 1955 SEX: M AGE: 69 LOCATION: [facility] ORDER 35 STATUS: REG ER REPORT#: [id number] SERVICE 32 REASON: swelling ORDERING PHYSICIAN: BRENT BELL GANG MINER PROCEDURE: VENOUS UNI - US VENOUS DOPPLER UNILATERAL EXAM: US for Deep Venous Thrombosis, right lower Extremity. CLINICAL HISTORY: Leg Pain and Swelling TECHNIQUE: Real-time ultrasound scan of the veins of the right ower extremity with color Doppler flow, spectral waveform analysis and compression. COMPARISON: None provided. FINDINGS: DEEP VEINS: The common femoral, superficial femoral, and popliteal veins are echolucent and compressible. There is normal color Doppler flow throughout. The visualized calf veins appear patent. SOFT TISSUES: No popliteal fossa cyst or other abnormalities. IMPRESSION: No deep venous thrombosis evident on right lower extremity examination. /[place] DICTATED BY: KORY WAYNE MD DATE: 03/13/252127 ELECTRONICALLY SIGNED BY: KORY WAYNE MD DATE: 03/13/252127 [address] [place] [id number] IMAGING REPORT Signed PATIENT: CHETNA SORIANO MR#: [id number] : 1955 SEX: M AGE: 69 LOCATION: [facility] ORDER 04 STATUS: [facility] REPORT#: [id number] SERVICE 03 REASON: right foot discoloration ORDERING PHYSICIAN: BRENT BELL PROCEDURE: ART U LE - US ARTERIAL UNILA LOW EXT DUPL EXAMINATION: DUPLEX ULTRASOUND EXAMINATION OF THE RIGHT LOWER EXTREMITY ARTERIES. CLINICAL HISTORY: Right foot discoloration. COMPARISON: None. FINDINGS: Peak systolic velocities within the right lower arteries are as follows: Common femoral artery: 186 cm/s. Superficial femoral artery: 78 cm/s at proximal, 90 cm/s at mid, and 42 cm/s at distal segments. Popliteal artery: 59 cm/s at proximal and 39 cm/s at distal segments. Posterior tibial artery: 11 cm/s. Anterior tibial artery: 46 cm/s. Dorsalis pedis artery: No flow. The right lower limb arteries demonstrate biphasic waveforms in common femoral, superficial femoral and monophasic in the remainder of the arteries. There are Atherosclerotic changes, characterised by multifocal atherosclerotic plaques and intimal wall thickening, in the right lower limb arteries. IMPRESSION: atherosclerotic changes in the right lower limb arteries. The right lower limb arteries demonstrate biphasic waveforms in common femoral, superficial femoral and monophasic in the remainder of the arteries. Increased velocity in the right common femoral artery. No flow in the dorsalis pedis artery. Recommend CT or MR angiogram. /[place] DICTATED BY: KORY WAYNE MD DATE: 03/13/252145 ELECTRONICALLY SIGNED BY: KORY WAYNE MD DATE: 03/13/252145 [facility] [address] [place] [address] [id number] IMAGING REPORT Signed PATIENT: CHETNA SORIANO MR#: [id number] : 1955 SEX: M AGE: 69 LOCATION: [facility] ORDER 0308 STATUS: ADM IN REPORT#: [id number] SERVICE 0800 REASON: LEFT LOWER EXTREMITY SWELLING ORDERING PHYSICIAN: LAILA WISDOM GANG MINER PROCEDURE: VENOUS UNI - US VENOUS DOPPLER UNILATERAL EXAM: US for Deep Venous Thrombosis, left Lower Extremity. CLINICAL HISTORY: Leg Pain and Swelling TECHNIQUE: Real-time ultrasound scan of the veins of the left lower extremity with color Doppler flow, spectral waveform analysis, and compression. COMPARISON: None provided. FINDINGS: DEEP VEINS: The common femoral, superficial femoral, and popliteal veins are echolucent and compressible. There is normal color Doppler flow throughout. The visualized calf veins appear patent. SOFT TISSUES: No popliteal fossa cyst or other abnormalities. Enlarged reactive lymph node in the left inguinal region measuring 1.4 x 0.5 cm. IMPRESSION: No deep venous thrombosis evident on left lower extremity examination. /[place] DICTATED BY: BELEN HARDING Jr., MD DATE: 03/15/25324 ELECTRONICALLY SIGNED BY: BELEN HARDING Jr., MD DATE: 03/15/25324 [facility] [address] [place] [address] [phone] IMAGING REPORT Signed PATIENT: CHETNA SORIANO MR#: [id number] : 1955 SEX: M AGE: 69 LOCATION: [facility] ORDER 1014 STATUS: ADM IN REPORT#: [id number] SERVICE 1007 REASON: Severe PAD ORDERING PHYSICIAN: ANTOINE SUAZO MD PROCEDURE: CTA ABDAOR - CT ANGIO ABD AORTA W RUNOFF EXAMINATION: CT ANGIOGRAM OF ABDOMEN AND PELVIS AND RUNOFFS OF THE BILATERAL LOWER EXTREMITIES. CLINICAL HISTORY: Severe peripheral arterial disease COMPARISON: None provided. TECHNIQUE: MDCT angiogram of the abdominal aortic vessels was performed after administration of intravenous contrast. FINDINGS: Abdominal aorta is normal in size and caliber. There are atheromatous wall calcification of the aorta, its branches, iliac arteries, and both lower limb arteries. There is no aneurysm or dissection. There is no critical stenosis or occlusion. The celiac and superior mesenteric arteries are patent with mild stenosis proximally. Bilateral renal arteries are calcified with mild stenosis proximally. There is no critical stenosis or occlusion. The inferior mesenteric artery is normal in caliber. Bifurcation morphology is normal. There is no stenosis or occlusion. The bilateral external iliac arteries are normal in caliber. Their branches are normal, and the bilateral internal iliac arteries are normal; there is no stenosis or occlusion. Multilevel short-segment narrowing of the bilateral common femoral and superficial femoral arteries with narrow caliber flow in the bilateral popliteal and tibio-peroneal arteries. No demonstrable flow in bilateral distal anterior and posterior tibial arteries. The bilateral profunda femoris and popliteal arteries are normal in size and caliber. There is no stenosis or occlusion. There is a small right pleural effusion and moderate left pleural effusion with overlying atelectasis. Within the abdomen and pelvis, the liver is normal in caliber with uniform decreased density; there is a left renal cortical cyst measuring 1.3 x 1.5 x 1.3 cm; gallbladder, pancreas, spleen, adrenal glands, and right kidney are within normal limits; bowel loops are normal in caliber without evidence of obstruction, ileus, or bowel wall thickening, and the appendix is normal; and urinary bladder, prostate, and seminal vesicles appear normal in caliber. The included chest reveals: Moderate left and minimal left pleural effusion. Ground glassing of the lingula and left lower lobe. Centrilobular and paraseptal emphysema of the lungs. There is fatty atrophy of both gastrocnemius muscles. IMPRESSION: Atheromatous wall calcification of the aorta, its branches, iliac arteries, and both lower limb arteries with multilevel short-segment narrowing of the bilateral common femoral and superficial femoral arteries with narrow caliber flow in bilateral popliteal and tibio-peroneal arteries. No demonstrable flow in bilateral distal anterior and posterior tibial arteries. moderate peripheral vascular disease. No acute abdominal or pelvic pathology. Small right pleural effusion and moderate left pleural effusion with overlying atelectasis. /Katy DICTATED BY: MELL COLVIN MD DATE: 03/15/251215 ELECTRONICALLY SIGNED BY: MELL COLVIN MD DATE: 03/15/251215 Assessment/Plan: ASSESSMENT: Sepsis due to community-acquired pneumonia POA COPD exacerbation POA Acute respirsatory failure POA Acute anemia POA Hyponatremia POA Hypochloremia POA Hypocalcemia POA Elevated BNP POA Peripheral arterial disease POA Hypertension POA Hyperlipidemia POA Nicotine dependence POA Discharge Instructions: Take your oral antibiotics exactly as prescribed and complete the full course. Continue all heart/PAD medications as directed do not miss doses Walk as tolerated; stopped if you have significant leg pain and avoid strenuous activity. No smoking, stable hydrated and eat a heart healthy diet. Follow up with Cardiology in 1 week and primary care as scheduled. Seek ER care immediately if worsening shortness of breath, fever, chest pain, confusion, severe or worsening leg pain, or toe color change. New medications: Take Amoxicillin/Potassium Clav (Amox Tr-K Clv 875-125 mg Tab) 875 Mg-125 Mg 1 Tablet twice daily for 10 days Take doxycycline 100 mg1 tablet twice daily for 10 days Continued medications: Resume all your home medications, take exactly as prescribed Please follow up with your PCP in1 week Please follow up with your [facility] outpatient for PAD in 1-2 weeks Home Medications: Active Scripts Cephalexin Monohydrate (Keflex) 500 Mg Cap, 1 CAP PO TID for 10 Days, #30 CAP 0 Refills Prov:MALIK CHASE MD 04/25/24 Reported Medications Diltiazem HCl (Diltiazem ER) 240 Mg Tab.er.24h, 1 TAB PO DAILY for 30 Days, #30 TAB 0 Refills 03/14/25 Diltiazem HCl (Diltiazem 24Hr Cd) 120 Mg Cap.er.24h, 1 CAP PO HS for 30 Days, #30 CAP 0 Refills 03/14/25 Fluticasone/Umeclidin/Vilanter (Trelegy Ellipta 100-62.5-25) 100-62.5 Blst.w.dev, 1 PUFF IH DAILY for 30 Days, #1 EACH 0 Refills 03/14/25 Folic Acid (Folic Acid) 0.8 Mg Tablet, 1 MG PO DAILY, TAB 03/14/25 Hydroxychloroquine Sulfate (Hydroxychloroquine Sulfate) 200 Mg Tablet, 1 TAB PO BID for 30 Days, #60 TAB 0 Refills 03/14/25 Digoxin (Digoxin) 125 Mcg (0.125 Mg) Tablet, 125 MCG PO AM, TAB 03/14/25 Apixaban (Eliquis) 5 Mg Tablet, 1 TAB PO BID for 30 Days, #60 TAB 0 Refills 03/14/25 Atorvastatin Calcium (LIPITOR) 40 Mg Tablet, 1 TAB PO DAILY for 30 Days, #30 TAB 0 Refills 03/14/25 Duloxetine HCl (Duloxetine HCl) 60 Mg Capsule.dr, 1 CAP PO DAILY for 30 Days, #30 CAP 0 Refills 03/14/25 Pantoprazole Sodium (Pantoprazole Sodium) 40 Mg Tablet.dr, 40 MG PO BID, TAB 03/14/25 Ferrous Fumarate (Ferrous Fumarate) 324 Mg (106 Mg Iron) Tablet, 300 MG PO AM, TAB 03/14/25 Pregabalin (Pregabalin) 150 Mg Capsule, 1 CAP PO TID MDD 3 Capsule(s) for 30 Days, #90 CAP 0 Refills 03/14/25 Valacyclovir HCl (Valacyclovir) 500 Mg Tablet, 1 TAB PO BID for 30 Days, #30 TAB 0 Refills 03/14/25 Oxycodone HCl (Oxycodone HCl) 20 Mg Tablet, 1 TAB PO BID PRN for pain for 5 Days, #20 TAB 0 Refills 03/13/25 Oxycodone HCl (Oxycodone HCl) 10 Mg Tablet, 1 TAB PO BID PRN for pain for 5 Days, #20 TAB 0 Refills 03/13/25 New Medications: Amoxicillin/Potassium Clav (Amox Tr-K Clv 875-125 mg Tab) 875 Mg-125 Mg Tablet 1 TAB PO BID for 10 Days, #20 TAB 0 Refills Doxycycline Hyclate (Doxycycline Hyclate) 100 Mg Tablet.dr 1 TAB PO BID for 10 Days, #20 TAB 0 Refills Continued Medications: Apixaban (Eliquis) 5 Mg Tablet 1 TAB PO BID for 30 Days, #60 TAB 0 Refills Atorvastatin Calcium (Lipitor) 40 Mg Tablet 1 TAB PO DAILY for 30 Days, #30 TAB 0 Refills Digoxin (Digoxin) 125 Mcg (0.125 Mg) Tablet 125 MCG PO AM, TAB Diltiazem HCl (Diltiazem 24Hr Cd) 120 Mg Cap.er.24h 1 CAP PO HS for 30 Days, #30 CAP 0 Refills Diltiazem HCl (Diltiazem ER) 240 Mg Tab.er.24h 1 TAB PO DAILY for 30 Days, #30 TAB 0 Refills Duloxetine HCl (Duloxetine HCl) 60 Mg Capsule.dr 1 CAP PO DAILY for 30 Days, #30 CAP 0 Refills Ferrous Fumarate (Ferrous Fumarate) 324 Mg (106 Mg Iron) Tablet 300 MG PO AM, TAB Fluticasone/Umeclidin/Vilanter (Trelegy Ellipta 100-62.5-25) 100-62.5 Blst.w.dev 1 PUFF IH DAILY for 30 Days, #1 EACH 0 Refills Folic Acid (Folic Acid) 0.8 Mg Tablet 1 MG PO DAILY, TAB Hydroxychloroquine Sulfate (Hydroxychloroquine Sulfate) 200 Mg Tablet 1 TAB PO BID for 30 Days, #60 TAB 0 Refills Oxycodone HCl (Oxycodone HCl) 10 Mg Tablet 1 TAB PO BID PRN for pain for 5 Days, #20 TAB 0 Refills Oxycodone HCl (Oxycodone HCl) 20 Mg Tablet 1 TAB PO BID PRN for pain for 5 Days, #20 TAB 0 Refills Pantoprazole Sodium (Pantoprazole Sodium) 40 Mg Tablet.dr 40 MG PO BID, TAB Pregabalin (Pregabalin) 150 Mg Capsule 1 CAP PO TID MDD 3 Capsule(s) for 30 Days, #90 CAP 0 Refills Valacyclovir HCl (Valacyclovir) 500 Mg Tablet 1 TAB PO BID for 30 Days, #30 TAB 0 Refills Discontinued Medications: Cephalexin Monohydrate (Keflex) 500 Mg Cap 1 CAP PO TID for 10 Days, #30 CAP 0 Refills Time spent arranging discharge: 1-30 minutes ATTESTATION BY PHYSICIAN I have seen and examined the patient. I reviewed the documentation, medical decision making, and treatment plan as noted by the resident physician above. I agree with the findings and plan of care. ROBERT SCHMIDT MD, ADIL SHAH QUADRI MD Mar 15, 2025 14:21
--- NOTE | 2025-03-15 14:43 | NUR ---
VTACH EPISODE received call from tele, pt had a run of vtach 230. pt was seen walking around his room, asymptomatic. physician was notified at this time, will hold discharge for now
--- NOTE | 2025-03-15 15:07 | NUR ---
NURSING NOTE pt noted to be having visual hallucinations and disorientation to place at this time, at bedside with concerns. physician notified and at bedside for assessment
[2025-03-15] MEDS: PoTASSium chloRIDE 20MEQ ER 20 MEQ ERTAB PO ONE (15:22)
--- NOTE | 2025-03-15 16:03 | PN ---
[facility] PROGRESS NOTE Date of Service: Mar 15, 2025 Time of Service: 16:03 SUBJECTIVE: HISTORY OF PRESENT ILLNESS: This is a 69-year-old male,from [facility] here for a vacation, a poor historian with past medical history of COPD,a heavy smoker,Hyperlipidemia,hypertension,peripheral arterial disease,lupus and liver cirrhosis who present to the ED for complaints of cough,nasal congestion,fever and generalized body weakness started 2 days ago and got worse today. Patient reports he has clots on both legs and patient on Eliquis he said.Patient has left lower extremity swelling and redness discoloration.patient has discoloration to right lower extremity as well. Seen and examined patient in the ER awake,alert and coherent.Patient denies chest pain,palpitation shortness of breath. Latest vital signs temperature 98.4, heart rate 96, blood pressure 129/51 saturation 91% on room air. Labs: WBC 11 with negative left shift of neutrophils 87, hemoglobin 13, hematocrit 39 and platelet count 142. Sodium 128, chloride 95, lactic acid 1.9, total calcium 8.4 BNP 180. Influenza type a and B negative SARS COVID negative group a strep negative. Chest x-ray result revealed moderate left basilar infiltrate. Pneumonia likely. Left pleural effusion. Emphysematous lung changes. Right lower extremity arterial Doppler study result revealed atherosclerotic changes in the right lower limb arteries right lower extremity arteries demonstrate biphasic waveforms in common femoral superficial femoral and monophasic in the remainder of the arteries increased velocity in the right common femoral artery. No flow in the dorsalis pedis artery recommend CT or MR angiogram. Venous Doppler to right lower extremity result revealed no deep venous thrombosis evident on the right lower extremity. While in the ER patient received 1 L NS bolus, Tylenol 1000 mg p.o., Solu-Medrol 80 mg IV, DuoNeb treatment, ceftriaxone 1 g IV and azithromycin IV and nicotine patch 14 mg. patient admitted for further medical management. 03/14/2025: Patient was seen and evaluated bedside this morning, family at bedside. He is awake, alert, oriented x3, saturating 91% with2 L nasal cannula. Patient says that he is feeling good, wants to go home. Morning labs revealed white count 5.2, H&H 14.4, 42.1, CRP 79, BUN 10, creatinine 0.7. Chest X-ray revealed left basilar infiltrates, right lower extremity venous Doppler showed no DVT, right lower extremity arterial ultrasound no flow in the dorsalis pedis artery, waveforms in common femoral, superficial femoral, monophasic and remainder of RLE arteries. We will get CT abdominal aorta with BLE runoff, consult cardiology for further evaluation. Patient is currently on IV Solu- Medrol 40 mg b.i.d., IV Rocephin1 g Q 24, IV azithromycin, DuoNebs q.4 and nicotine patch. 03/15/2025: Patient was seen and evaluated bedside this morning, family at bedside. He is awake, alert, confused , saturating 94% with 2 L nasal. Patient says that he wants to back home. Morning labs are unremarkable. CT abdominal aorta with runoff showed atheromatous wall calcifications of aorta, its branches, iliac arteries and both lower limb arteries with multivessel short segment narrowing of common femoral and superficial femoral arteries narrow caliber flow in bilateral popliteal and tibioperoneal arteries. No demonstrable flow in bilateral distal anterior and posterior tibial arteries -moderate peripheral vascular disease. Cardiology recommended outpatient follow up as patient does not want further evaluation and treatment for PAD at this time. On telemetry patient had Had a run of Moe Delo-Mozenda 230, patient was seen walking around his room, symptomatic. Patient has been started on CIWA protocol, high-dose thiamine, Seroquel 12.5 mg prn t.i.d. for severe agitation as per Psychiatry recommendations. REVIEW OF SYSTEMS CONSTITUTIONAL: + fever Denies chills, or night sweats. No unintentional weight loss reported. NEUROLOGICAL: Denies headache, amaurosis fugax, motor weakness, sensory deficit, vertigo/spinning sensation, gait abnormalities, or tremors. ENT: No hearing loss, otalgia, otorrhea, rhinitis, rhinorrhea, hoarseness, or sore throat. CARDIOVASCULAR: Denies any exertional angina, dyspnea on exertion, orthopnea, paroxysmal nocturnal dyspnea, palpitations, life-threatening arrhythmias, claudication. PULMONARY: + productive cough Denies any shortness of breathhemoptysis, pleuritic chest pain. SLEEP: Denies morning headaches, daytime somnolence or napping. Denies difficulty falling asleep, staying asleep, waking from sleep. Denies knowledge of snoring. GASTROINTESTINAL: Denies any type of dysphagia to either liquids or solids. Denies nausea, vomiting, pyrosis, early satiety, abdominal pain, diarrhea, cons tipation, or changes in stool consistency or caliber. Denies coffee-ground emesis, hematemesis, hematochezia, or melanotic stools. GENITOURINARY: Denies frequency, urgency, nocturia, hematuria or incontinence (Storage/Irritative symptoms.) Low urinary stream, straining to void, urinary intermittency or hesitancy, splitting of the voiding stream, terminal dribbling. ENDOCRINOLOGIC: Denies polyuria, polydipsia, polyphagia or heat/cold intolerances. HEMATOLOGIC: Denies thrombophilia/previous clots, or coagulopathy/bleeding disorders. ONCOLOGIC: Denies personal history of malignancy. DERMATOLOGIC: Denies rashes or pruritus. PSYCHIATRIC: Denies any suicidal or homicidal ideation. Denies hallucinations. PHYSICAL EXAM GENERAL APPEARANCE: The patient is awake, alert, and oriented, in no acute cardiopulmonary distress. NEUROLOGICAL: Cranial nerves II-XII grossly intact. Motor is 5/5 in bilateral upper and lower extremities proximal to distal. No sensory deficits. HEENT: Face is symmetric. Pupils are equal and reactive. Extraocular movements are intact. NECK: Supple. No JVD. No thyromegaly. No submental, submandibular, pre- /postauricular, occipital or supraclavicular lymphadenopathy. CHEST: Normal chest expansion. No Telemetry. LUNGS: Crackles on left lower lobe CARDIOVASCULAR: Regular. S1 and S2 normal. No appreciable rubs, murmurs or gallops. ABDOMEN: Soft, nontender, and nondistended. There is no rebound, voluntary guarding, or rigidity. : Deferred. No Hawley. EXTREMITIES: Hyperpigmentation, dry ulcers on his right 2nd and 5th toes, lack of hair, brittle toenails, cool to touch SKIN: No skin breakdown. Vital Signs (last 8hr) Date Time Temp Pulse Resp B/P (MAP) Pulse Ox O2 Delivery O2 Flow Rate FiO2 03/15/25 14:38 91 20 03/15/25 14:37 91 20 N/A Room Air 03/15/25 12:01 97.9 95 18 131/61 99 Nasal Cannula 2.0 03/15/25 10:43 95 20 03/15/25 10:41 95 20 N/A Room Air 03/15/25 09:35 130 03/15/25 08:35 130 03/15/25 08:25 97.9 62 16 167/87 73 Nasal Cannula 2.0 LABS: Laboratory: Test 03/15/25 11:52 03/15/25 03:58 03/14/25 18:30 03/14/25 16:14 Range/Units Whole Blood Glucose 171 H 70-110 MG/DL White Blood Count 8.9 # 4.8-10.8 K/uL Red Blood Count 3.96 L 4.50-6.20 MIL/uL Hemoglobin 12.9 L 14.0-18.0 g/dL Hematocrit 37.4 L 42-54 % Mean Corpuscular Volume 94.4 79-99 fL Mean Corpuscular Hemoglobin 32.6 27.0-33.0 pg Mean Corpuscular Hemoglobin Concent 34.5 32.0-36.0 g/dL Red Cell Distribution Width 13.5 11.0-15.5 % Platelet Count 150 130-400 K/uL Mean Platelet Volume 11.5 H 7.5-10.5 fL Nucleated Red Blood Cells 0.0 0.0-0.19 % Sodium Level 135 L 136-145 mmol/L Potassium Level 3.5 3.5-5.1 mmol/L Chloride Level 96 L 101-111 mmol/L Carbon Dioxide Level 31 21-32 mmol/L Blood Urea Nitrogen 11 7-18 mg/dL Creatinine 0.6 0.5-1.3 mg/dL Glomerular Filtration Rate Calc 104 >90 mL/min Random Glucose 145 H 70-105 mg/dL Total Calcium 8.4 L 8.5-10.1 mg/dL B-Type Natriuretic Peptide 457 H 0-100 pg/mL Urine Osmolality 328 50-1200 mOsm/kg Urine Random Sodium 37 L 40-220 mmol/l Serum Osmolality 266 L 278-305 mOsm/kg Thyroid Stimulating Hormone (TSH) 0.23 L 0.36-3.74 uIU/mL Test 03/14/25 07:58 03/14/25 07:38 03/14/25 00:13 03/13/25 20:28 Range/Units Total Bilirubin 0.4 0.2-1.0 mg/dL Aspartate Amino Transf (AST/SGOT) 28 10-37 U/L Alanine Aminotransferase (ALT/SGPT) 18 12-78 U/L Alkaline Phosphatase 103 50-136 U/L C-Reactive Protein, Quantitative 79.50 H 0.5-3.0 mg/L Total Protein 7.1 6.0-8.3 g/dL Albumin 2.6 L 3.5-5.0 g/dL Procalcitonin < 0.05 L 0.05-0.5 ng/mL Urine Color LIGHT-YELLOW YELLOW Urine Appearance CLEAR CLEAR Urine pH 7.0 5.0-8.0 Urine Specific [place] 1.011 1.001-1.031 Urine Protein NEGATIVE NEGATIVE mg/dL Urine Glucose (UA) NEGATIVE NEGATIVE mg/dL Urine Ketones 10 H NEGATIVE mg/dL Urine Occult Blood NEGATIVE NEGATIVE Urine Nitrate NEGATIVE NEGATIVE Urine Bilirubin NEGATIVE NEGATIVE mg/dL Urine Urobilinogen 0.2 0.2-1.0 mg/dL Urine Leukocyte Esterase NEGATIVE NEGATIVE Iron/uL Urine RBC 0-1 0-1 /HPF Urine WBC 0-1 0-1 /HPF Urine Bacteria None None Seen /HPF Prothrombin Time 12.2 H 9.6-11.6 SEC Prothromb Time International Ratio 1.17 H 0.85-1.15 Activated Partial Thromboplast Time 37.6 H 26.3-35.5 SEC Test 03/13/25 18:41 03/13/25 17:52 Range/Units Immature Granulocyte % (Auto) 0.4 0-1 % Neutrophils (%) (Auto) 87.0 H 40.0-77.0 % Lymphocytes (%) (Auto) 8.0 L 21.0-51.0 % Monocytes (%) (Auto) 4.3 3.0-13.0 % Eosinophils (%) (Auto) 0.1 0.0-8.0 % Basophils (%) (Auto) 0.2 0.0-5.0 % Neutrophils # (Auto) 10.2 H 1.8-7.7 K/uL Lymphocytes # (Auto) 0.9 L 1.0-4.8 K/uL Monocytes # (Auto) 0.5 0.1-1.0 K/uL Eosinophils # (Auto) 0.01 0.00-0.70 K/uL Basophils # (Auto) 0.02 0.00-0.20 K/uL Absolute Immature Granulocyte (auto 0.05 0-1 K/uL White Cell Morphology Comment See comments Lactic Acid Level 1.9 0.8-2.5 mmol/L Total Creatine Kinase 132 21-232 U/L Troponin I High Sensitivity 29 4-75 ng/L Influenza Type A Antigen Negative For Type A NEGATIVE Influenza Type B Antigen Negative For Type B NEGATIVE SARS-CoV-2, RNA, NAAT NEGATIVE SARS CoV-2 NEGATIVE Group A Streptococcus Rapid negative NEGATIVE Current Medications Medications (Trade) Dose Ordered Sig/Carmen Route PRN Reason Start Time Stop Time Status Last Admin Dose Admin Acetaminophen (TYLenol 325MG TAB) 650 mg Q4H PRN PO MILD PAIN (1-3) 03/14/25 00:00 04/13/25 00:00 Acetaminophen (TYLenol 325MG TAB) 650 mg Q6H PRN PO TEMPERATURE GREATER THAN 101.5 03/14/25 00:00 04/13/25 00:00 Albuterol (DUOneb) 1 udvial [id number] IH 03/14/25 02:00 04/13/25 01:59 03/15/25 14:38 1 UDVIAL Apixaban (EliquIS) 5 mg BID PO 03/14/25 21:00 04/13/25 20:59 03/15/25 08:32 5 MG Atorvastatin Calcium (LIPItor 40MG) 40 mg DAILY PO 03/15/25 09:00 04/14/25 08:59 03/15/25 08:32 40 MG Azithromycin 250 ml @ 250 mls/hr Q24H IV 03/14/25 00:00 03/24/25 00:00 03/15/25 01:20 250 MLS/HR Ceftriaxone Sodium 1 gm/ Sodium Chloride 50 ml @ 100 mls/hr Q24H IV 03/14/25 00:00 03/14/25 00:10 DC Ceftriaxone Sodium (ROCEphine 1G INJ) 1 gm Q24H IVPB 03/14/25 00:30 03/24/25 00:29 03/14/25 23:45 1 GM Digoxin (LANOxin 125mcg) 125 mcg AM PO 03/15/25 09:00 04/14/25 08:59 03/15/25 08:35 125 MCG Diltiazem HCl (CARDIzem 120MG CD) 120 mg HS PO 03/14/25 21:00 04/13/25 20:59 03/14/25 20:45 120 MG Diltiazem HCl (CARDIzem 120MG CD) 240 mg DAILY PO 03/15/25 09:00 04/14/25 08:59 03/15/25 08:31 240 MG Duloxetine HCl (CymbALTA 30 mg CAP) 60 mg DAILY PO 03/15/25 09:00 04/14/25 08:59 03/15/25 08:32 60 MG Famotidine (Pepcid 20mg Tab) 20 mg DAILY PO 03/14/25 09:00 04/13/25 08:59 03/15/25 08:32 20 MG Ferrous Fumarate (Hemocyte) 324 mg AM PO 03/15/25 09:00 04/14/25 08:59 03/15/25 08:32 324 MG Folic Acid (FOLic ACID 1 MG TABLET) 1 mg DAILY PO 03/15/25 09:00 04/14/25 08:59 03/15/25 08:31 1 MG Home Med (Home Medication) (Fluticasone/ Umeclidin/ Vilan... DAILY IH 03/15/25 09:00 04/14/25 08:59 Hydroxychloroquine Sulfate (PLAQuenil 200MG) 200 mg BID PO 03/14/25 21:00 03/28/25 20:59 03/15/25 08:30 200 MG Methylprednisolone Sodium Succinate (Solu-medROL 40MG) 40 mg BID IVP 03/14/25 09:00 04/13/25 08:59 03/15/25 08:32 40 MG Miscellaneous Medication (Oxycodone HCl ) 1 tab BID PRN PO pain 03/14/25 10:30 03/14/25 11:26 DC Miscellaneous Medication (Oxycodone HCl ) 1 tab BID PRN PO pain 03/14/25 10:30 03/14/25 11:26 DC Nicotine (Nicoderm) 14 mg DAILY TD 03/15/25 22:00 03/14/25 16:06 DC Nicotine (Nicoderm) 21 mg Q24H TD 03/15/25 13:00 04/14/25 12:59 03/15/25 13:18 21 MG Ondansetron HCl (zoFRAN 4MG INJ) 4 mg Q6H PRN IV NAUSEA/VOMITING 03/14/25 00:00 04/13/25 00:00 Oxycodone HCl (ROXicoDONE) 10 mg BID PRN PO SEVERE PAIN (7-10) 03/15/25 00:30 03/22/25 00:29 03/15/25 09:27 10 MG Oxycodone HCl (ROXicoDONE) 20 mg BID PRN PO SEVERE PAIN (7-10) 03/15/25 00:30 03/15/25 00:32 DC Pregabalin (YOVmxv73MB) 150 mg TID PO 03/14/25 14:00 04/13/25 13:59 03/15/25 13:18 150 MG Sodium Chloride 1,000 ml @ 100 mls/hr Q10H IV 03/14/25 00:00 03/14/25 18:54 DC Valacyclovir HCl (ValtREX) 500 mg BID PO 03/14/25 21:00 04/13/25 20:59 03/15/25 08:32 500 MG DIAGNOSTICS / RADIOLOGY: [ ] [place] [address] IMAGING REPORT Signed PATIENT: CHETNA SORIANO MR#: [id number] : 1955 SEX: M AGE: 69 LOCATION: [facility] ORDER 1014 STATUS: ADM IN REPORT#: [id number] SERVICE 1007 REASON: Severe PAD ORDERING PHYSICIAN: ANTOINE SUAZO MD PROCEDURE: CTA ABDAOR - CT ANGIO ABD AORTA W RUNOFF EXAMINATION: CT ANGIOGRAM OF ABDOMEN AND PELVIS AND RUNOFFS OF THE BILATERAL LOWER EXTREMITIES. CLINICAL HISTORY: Severe peripheral arterial disease COMPARISON: None provided. TECHNIQUE: MDCT angiogram of the abdominal aortic vessels was performed after administration of intravenous contrast. FINDINGS: Abdominal aorta is normal in size and caliber. There are atheromatous wall calcification of the aorta, its branches, iliac arteries, and both lower limb arteries. There is no aneurysm or dissection. There is no critical stenosis or occlusion. The celiac and superior mesenteric arteries are patent with mild stenosis proximally. Bilateral renal arteries are calcified with mild stenosis proximally. There is no critical stenosis or occlusion. The inferior mesenteric artery is normal in caliber. Bifurcation morphology is normal. There is no stenosis or occlusion. The bilateral external iliac arteries are normal in caliber. Their branches are normal, and the bilateral internal iliac arteries are normal; there is no stenosis or occlusion. Multilevel short-segment narrowing of the bilateral common femoral and superficial femoral arteries with narrow caliber flow in the bilateral popliteal and tibio-peroneal arteries. No demonstrable flow in bilateral distal anterior and posterior tibial arteries. The bilateral profunda femoris and popliteal arteries are normal in size and caliber. There is no stenosis or occlusion. There is a small right pleural effusion and moderate left pleural effusion with overlying atelectasis. Within the abdomen and pelvis, the liver is normal in caliber with uniform decreased density; there is a left renal cortical cyst measuring 1.3 x 1.5 x 1.3 cm; gallbladder, pancreas, spleen, adrenal glands, and right kidney are within normal limits; bowel loops are normal in caliber without evidence of obstruction, ileus, or bowel wall thickening, and the appendix is normal; and urinary bladder, prostate, and seminal vesicles appear normal in caliber. The included chest reveals: Moderate left and minimal left pleural effusion. Ground glassing of the lingula and left lower lobe. Centrilobular and paraseptal emphysema of the lungs. There is fatty atrophy of both gastrocnemius muscles. IMPRESSION: Atheromatous wall calcification of the aorta, its branches, iliac arteries, and both lower limb arteries with multilevel short-segment narrowing of the bilateral common femoral and superficial femoral arteries with narrow caliber flow in bilateral popliteal and tibio-peroneal arteries. No demonstrable flow in bilateral distal anterior and posterior tibial arteries. moderate peripheral vascular disease. No acute abdominal or pelvic pathology. Small right pleural effusion and moderate left pleural effusion with overlying atelectasis. /[place] DICTATED BY: MELL COLVIN MD DATE: 03/15/251215 ELECTRONICALLY SIGNED BY: MELL COLVIN MD DATE: 03/15/251215 ASSESSMENT: Sepsis due to community-acquired pneumonia POA COPD exacerbation POA Acute respirsatory failure POA Alcohol use disorder W/withdrawal Acute anemia POA Hyponatremia POA Hypochloremia POA Hypocalcemia POA Elevated BNP POA Peripheral arterial disease POA Hypertension POA Hyperlipidemia POA Nicotine dependence POA PLAN: Sepsis due to community-acquired pneumonia POA COPD exacerbation POA Acute respirsatory failure POA On presentation heart rate 113, temperature 99.9, white count 11.7, lactic acid 1.9 Chest x-ray showed moderate left basilar infiltrates likely pneumonia. Patient was started on IV sodium chloride 100 mL/hour Patient was started on Rocephin IV 1 g Q 24, IV azithromycin Q 24 Patient was started on IV Solu-Medrol 40 mg b.i.d., DuoNebs q.4 White count today 5.2 Pulmonology on board Peripheral arterial disease POA Arterial ultrasound of right lower extremity showed basically from seen, femoral, superficial femoral and monophasic in the remainder of the arteries. No flow in dorsalis pedis artery. Ultrasound of right lower extremity showed no DVT CT abdominal aorta with BLE runoff revealed atheromatous wall calcifications of aorta, its branches, iliac arteries and both lower limb arteries with multi vessel short segment narrowing of common femoral and superficial femoral arteries narrow caliber flow in bilateral popliteal and tibioperoneal arteries. No demonstrable flow in bilateral distal anterior and posterior tibial arteries -moderate peripheral vascular disease. Cardiology recommended outpatient follow up as patient does not want further evaluation and treatment at hospital at this point of time. Alcohol use disorder W/withdrawal Patient is approximately 72 hours from his last drink, eating very poorly prior to admission and drinking 2 pint per day Patient is started on CIWA protocol High-dose thiamine 250 mg IV t.i.d. for possible Wernicke's Seroquel 12.5 mg t.i.d. p.r.n. for acute agitation, aggression or psychosis Hyponatremia POA On presentation sodium 128 Today sodium 135 All home medications have been reconciled and resumed Nicotine patch14 mg for nicotine dependence GI prophylaxis with Pepcid 20 mg ATTESTATION BY PHYSICIAN I have seen and examined the patient. I reviewed the documentation, medical decision making, and treatment plan as noted by the resident physician above. I agree with the findings and plan of care. ROBERT SCHMIDT MD, ADIL SHAH QUADRI MD Mar 15, 2025 16:03
--- NOTE | 2025-03-15 17:09 | CONS ---
CONSULT NOTE: Reason for consult: confusion, probable delirium Reason for medical admission: This is a 69-year-old male,from [facility] here for a vacation, a poor historian with past medical history of COPD,a heavy smoker,Hyperlipidemia,hypertension,peripheral arterial disease,lupus and liver cirrhosis who present to the ED for complaints of cough,nasal congestion,fever and generalized body weakness started 2 days ago and got worse today. Patient reports he has clots on both legs and patient on Eliquis he said.Patient has left lower extremity swelling and redness discoloration.patient has discoloration to right lower extremity as well. Seen and examined patient in the ER awake,alert and coherent.Patient denies chest pain,palpitation shortness of breath. Latest vital signs temperature 98.4, heart rate 96, blood pressure 129/51 saturation 91% on room air. Labs: WBC 11 with negative left shift of neutrophils 87, hemoglobin 13, hematocrit 39 and platelet count 142. Sodium 128, chloride 95, lactic acid 1.9, total calcium 8.4 BNP 180. Influenza type a and B negative SARS COVID negative group a strep negative. Chest x-ray result revealed moderate left basilar infiltrate. Pneumonia likely. Left pleural effusion. Emphysematous lung changes. Right lower extremity arterial Doppler study result revealed atherosclerotic changes in the right lower limb arteries right lower extremity arteries demonstrate biphasic waveforms in common femoral superficial femoral and monophasic in the remainder of the arteries increased velocity in the right common femoral artery. No flow in the dorsalis pedis artery recommend CT or MR angiogram. Venous Doppler to right lower extremity result revealed no deep venous thrombosis evident on the right lower extremity. While in the ER patient received 1 L NS bolus, Tylenol 1000 mg p.o., Solu-Medrol 80 mg IV, DuoNeb treatment, ceftriaxone 1 g IV and azithromycin IV and nicotine patch 14 mg. We will admit patient for further medical management. CC: "my behavior" HPI: Patient states he came to the hospital because her thought he was acting strange. He reports he hadn't slept for 4-5 days. He reports he drinks about 2 pints daily. He says "booze doesn't affect me anymore." He denied drug use. He smokes 1 ppd. He reports he is feeling better all the time an the thinks he is thinking more clearly. Patient does endorse hallucinations. He was seeing and hearing a friend that wasn't really there today. He denied sadness or depression. He denied anxiety or nervousness. Patient thinks he did sleep last night but not much. He did not eat much today. He is taking his medications as directed but he says "they are all out of whack." thinks he is doing better but when she went out today she was told that he had a hallucination. He was quite confused and upset for awhile. thinks this could be withdrawal related. He hasn't had any alcohol in 3 days and he has barely eaten anything. denied any psychiatric hx. Vital Signs Date Time Temp Pulse Resp B/P (MAP) Pulse Ox O2 Delivery O2 Flow Rate FiO2 03/15/25 14:38 91 20 03/15/25 14:37 N/A Room Air 03/15/25 12:01 97.9 131/61 99 2.0 03/14/25 20:00 21 Current Medications Medications Dose Ordered Sig/Carmen Start Time Stop Time Status Last Admin Acetaminophen 650 mg Q6H PRN 03/14/25 00:00 04/13/25 00:00 Acetaminophen 650 mg Q4H PRN 03/14/25 00:00 04/13/25 00:00 Ondansetron HCl 4 mg Q6H PRN 03/14/25 00:00 04/13/25 00:00 Albuterol 1 udvial [id number] 03/14/25 02:00 04/13/25 01:59 03/15/25 14:38 Famotidine 20 mg DAILY 03/14/25 09:00 04/13/25 08:59 03/15/25 08:32 Azithromycin 250 ml @ 250 mls/hr Q24H 03/14/25 00:00 03/24/25 00:00 03/15/25 01:20 Ceftriaxone Sodium 1 gm Q24H 03/14/25 00:30 03/24/25 00:29 03/14/25 23:45 Methylprednisolone Sodium Succinate 40 mg BID 03/14/25 09:00 04/13/25 08:59 03/15/25 08:32 Apixaban 5 mg BID 03/14/25 21:00 04/13/25 20:59 03/15/25 08:32 Atorvastatin Calcium 40 mg DAILY 03/15/25 09:00 04/14/25 08:59 03/15/25 08:32 Digoxin 125 mcg AM 03/15/25 09:00 04/14/25 08:59 03/15/25 08:35 Diltiazem HCl 120 mg HS 03/14/25 21:00 04/13/25 20:59 03/14/25 20:45 Ferrous Fumarate 324 mg AM 03/15/25 09:00 04/14/25 08:59 03/15/25 08:32 Hydroxychloroquine Sulfate 200 mg BID 03/14/25 21:00 03/28/25 20:59 03/15/25 08:30 Valacyclovir HCl 500 mg BID 03/14/25 21:00 04/13/25 20:59 03/15/25 08:32 Diltiazem HCl 240 mg DAILY 03/15/25 09:00 04/14/25 08:59 03/15/25 08:31 Duloxetine HCl 60 mg DAILY 03/15/25 09:00 04/14/25 08:59 03/15/25 08:32 Home Med (Fluticasone/ Umeclidin/ Vilan... DAILY 03/15/25 09:00 04/14/25 08:59 Folic Acid 1 mg DAILY 03/15/25 09:00 04/14/25 08:59 03/15/25 08:31 Pregabalin 150 mg TID 03/14/25 14:00 04/13/25 13:59 03/15/25 13:18 Nicotine 21 mg Q24H 03/15/25 13:00 04/14/25 12:59 03/15/25 13:18 Oxycodone HCl 10 mg BID PRN 03/15/25 00:30 03/22/25 00:29 03/15/25 09:27 Oxycodone HCl 20 mg ONCE ONCE 03/15/25 19:00 03/15/25 19:01 Laboratory Tests Test 03/14/25 18:30 03/15/25 03:58 03/15/25 11:52 03/15/25 16:34 Urine Osmolality 328 mOsm/kg (50-1200) Urine Random Sodium 37 mmol/l (40-220) L White Blood Count 8.9 K/uL (4.8-10.8) # Red Blood Count 3.96 MIL/uL (4.50-6.20) L Hemoglobin 12.9 g/dL (14.0-18.0) L Hematocrit 37.4 % (42-54) L Mean Corpuscular Volume 94.4 fL (79-99) Mean Corpuscular Hemoglobin 32.6 pg (27.0-33.0) Mean Corpuscular Hemoglobin Concent 34.5 g/dL (32.0-36.0) Red Cell Distribution Width 13.5 % (11.0-15.5) Platelet Count 150 K/uL (130-400) Mean Platelet Volume 11.5 fL (7.5-10.5) H Nucleated Red Blood Cells 0.0 % (0.0-0.19) Sodium Level 135 mmol/L (136-145) L Potassium Level 3.5 mmol/L (3.5-5.1) Chloride Level 96 mmol/L (101-111) L Carbon Dioxide Level 31 mmol/L (21-32) Blood Urea Nitrogen 11 mg/dL (7-18) Creatinine 0.6 mg/dL (0.5-1.3) Glomerular Filtration Rate Calc 104 mL/min (>90) Random Glucose 145 mg/dL (70-105) H Total Calcium 8.4 mg/dL (8.5-10.1) L B-Type Natriuretic Peptide 457 pg/mL (0-100) H Whole Blood Glucose 171 MG/DL (70-110) H 191 MG/DL (70-110) H MSE: Patient is a 69 yo white male. He is alert and oriented to person and situation. Eye contact is consistent. Gait is not evaluated. He is a bit disheveled. Mood is "doing better" and affect is a bit odd and labile. Thought process is tangential and off topic at times. Thought content is + for AVH. He denied SI and HI. Memory and cognition are impaired. Insight and judgment limited. Assessment: Encephalopathy Alcohol use disorder w/ withdrawal Recommendations: -Patient is approximately 72 hours out from his last drink. He was eating very poorly prior to admission and drinking 2 pints per day. He is high risk for complicated alcohol withdrawal and Wernicke's encephalopathy. -Recommend scheduled benzo taper and CIWA protocol with PRN benzos also -For acute agitation, aggressoin or psychosis recommend Seroquel 12.5-25 mg TID PRN -Plase ensure that he has gotten IM dose of thiamine. Consider dosing with high dose thiamine 250-500 mg IM or IV TID for possible Wernicke's. -Check ammonia level to r/o hepatic encephalopathy -Please make referrals to outpatient therapy and substance abuse tx after DC -Please re-consult as needed *20 mins was spent [id number] with patient and and 25 mins was spent on chart review and documentation. SHALINI SPENCE DO Mar 15, 2025 17:09
[2025-03-15 17:20] LABS: AMPHET/METH SCREEN,URINE NEGATIVE (NEGATIVE); BARBITURATE SCREEN, URINE NEGATIVE (NEGATIVE); CANNABINOID SCREEN,URINE NEGATIVE (NEGATIVE); COCAINE SCREEN,URINE NEGATIVE (NEGATIVE)
[2025-03-15] MEDS ORDERED: PHARMACY COMMUNICATION MISC PRN (18:00)
[2025-03-15] MEDS: THIAMINE HCL 100 MG, FOLic ACID 5 MG/ML VIAL 1 MG, M.V.I. IV [ADULT] 10 ML in 0.9%NACL ... IV SCH (18:29)
[2025-03-15] MEDS ORDERED: COMPOUND IV REFRIGERATED 1 EACH IVSOLN MISC PRN (18:30)
--- NOTE | 2025-03-15 20:14 | NUR ---
ST 150s Patient ambulating to restroom and heart rate ST 170s. Patient back in bed and now ST 150s with PAC at rest. Paged Roxana Sullivan NP, pending call back. Patient denies distress. BP 152/79.
--- NOTE | 2025-03-15 20:24 | NUR ---
SINUS TACHYCARDIA Patient now ST 120s- 130s on telemetry monitoring. Patient in bed, no distress.
--- NOTE | 2025-03-15 20:30 | NUR ---
PAGE Notified Roxana Sullivan np of Sinus tachycardia fluctuating between 130s-170s. Nurse to administer Cardizem 120 mg po dose now and keep patient bedrest. Patient denies distress. Resting in bed. Explained to patient of bedrest order, verbalized understanding.
[2025-03-15] MEDS: THIAMINE HCL 100 MG/ML 2ML VIAL IV SCH (20:31)
--- NOTE | 2025-03-15 21:20 | NUR ---
PAGE Paged Roxana stahl NP regarding patient's heart rate ST 155 sustaining. Patient not following bed rest order. New order to administer Lopressor 2.5 mg IV. See EMAR.
--- NOTE | 2025-03-15 21:25 | PN ---
[facility] PROGRESS NOTE Date Patient Seen: Mar 15, 2025 Time of Visit: 21:22 Supervising Physician: JEFF GARCIA MD Primary Care Physician: [ ] Outpatient Specialists: [ ] Inpatient Consults: [ ] PROBLEM LIST: Community-acquired pneumonia present on admission Acute COPD exacerbation secondary to community-acquired pneumonia Alcoholic liver cirrhosis Alcohol use disorder Alcohol withdrawal syndrome Tobacco use disorder Severe protein calorie malnutrition secondary to chronic alcohol use disorder Hypertension Hyperlipidemia Underlying systemic lupus erythematosus Critical illness myopathy Sarcopenia INTERVAL HISTORY: Patient is very weak, bed ridden and severely deconditioned. He is on room air, agitated and confused and not following commands. Patient with worsening cough and congestion. Patient had an episodes of ventricular tachycardia. No seizures, no nausea or vomiting. Voiding, no diarrhea. REVIEW OF SYSTEMS: Unable to obtain from patient due to underlying encephalopathy PHYSICAL EXAM: GENERAL: Confused, agitated and nonverbal. Does not follow commands., Obtunded. HEENT: EOMI, Sclera non icteric, moist mucosa NECK: Supple, no JVD, trachea midline LUNGS: Clear breath sounds bilaterally. No wheezes. Decreased breath sound left side. HEART: Regular rate and rhythm. Normal S1 and S2, without murmurs ABD: Abdomen soft, nontender. Bowel sounds present EXT: No clubbing cyanosis or edema NEURO: Alert and oriented to person, follows commands Vital Signs (last 8hr) Date Time Temp Pulse Resp B/P (MAP) Pulse Ox O2 Delivery O2 Flow Rate FiO2 03/15/25 20:00 98.1 71 20 152/79 93 Room Air 03/15/25 18:51 96 20 N/A Room Air 03/15/25 18:51 96 20 03/15/25 16:00 98.1 90 16 144/68 94 Nasal Cannula 2.0 03/15/25 14:38 91 20 03/15/25 14:37 91 20 N/A Room Air LABS: Hematology Labs: Test 03/15/25 03:58 Range/Units White Blood Count 8.9 # 4.8-10.8 K/uL Red Blood Count 3.96 L 4.50-6.20 MIL/uL Hemoglobin 12.9 L 14.0-18.0 g/dL Hematocrit 37.4 L 42-54 % Mean Corpuscular Volume 94.4 79-99 fL Mean Corpuscular Hemoglobin 32.6 27.0-33.0 pg Mean Corpuscular Hemoglobin Concent 34.5 32.0-36.0 g/dL Red Cell Distribution Width 13.5 11.0-15.5 % Platelet Count 150 130-400 K/uL Mean Platelet Volume 11.5 H 7.5-10.5 fL Nucleated Red Blood Cells 0.0 0.0-0.19 % Chemistry Labs: Test 03/15/25 17:47 03/15/25 16:34 03/15/25 03:58 03/14/25 16:14 Range/Units Potassium Level 3.5 3.5-5.1 mmol/L Magnesium Level 2.00 1.80-2.40 mg/dL Whole Blood Glucose 191 H 70-110 MG/DL Sodium Level 135 L 136-145 mmol/L Chloride Level 96 L 101-111 mmol/L Carbon Dioxide Level 31 21-32 mmol/L Blood Urea Nitrogen 11 7-18 mg/dL Creatinine 0.6 0.5-1.3 mg/dL Glomerular Filtration Rate Calc 104 >90 mL/min Random Glucose 145 H 70-105 mg/dL Total Calcium 8.4 L 8.5-10.1 mg/dL B-Type Natriuretic Peptide 457 H 0-100 pg/mL Serum Osmolality 266 L 278-305 mOsm/kg Thyroid Stimulating Hormone (TSH) 0.23 L 0.36-3.74 uIU/mL Test 03/14/25 07:58 03/14/25 07:38 Range/Units Total Bilirubin 0.4 0.2-1.0 mg/dL Aspartate Amino Transf (AST/SGOT) 28 10-37 U/L Alanine Aminotransferase (ALT/SGPT) 18 12-78 U/L Alkaline Phosphatase 103 50-136 U/L C-Reactive Protein, Quantitative 79.50 H 0.5-3.0 mg/L Total Protein 7.1 6.0-8.3 g/dL Albumin 2.6 L 3.5-5.0 g/dL Procalcitonin < 0.05 L 0.05-0.5 ng/mL DIAGNOSTICS / RADIOLOGY RESULTS: [ ] PLAN Add Flagyl 500 mg IV every 8 hours to current antibiotic regimen Follow [facility] protocol CT scan of the chest without contrast IV hydration with D5W Aspiration precautions NEURO: Minimize central acting medications as possible. Maintain fall precautions, adequate lighting during the day PULMONARY: Supplemental 02 as needed. Maintain aspiration precautions at all times CARDIOVASCULAR: Follow hemodynamics. Vital signs per facility protocol GI & NUTRITION: Continue with nutritional support. Continue stool softeners and laxatives as needed. KIDNEYS & ELECTROLYTES: Strict monitoring of intake, output and overall fluid balance. Avoid nephrotoxic medications to the extent possible. Medications to be dosed according to renal function. Monitor electrolytes and replace as needed ENDOCRINE: Maintain blood glucose between 100-180 at all times. Hypoglycemia protocol in place INFECTIOUS DISEASE: Trend temperature, WBC and procalcitonin level Follow cultures, deescalate antibiotics as soon as possible. Panculture if new onset fever ONCOLOGY/HEMATOLOGY/COAGULATION: Monitor for s/s of bleeding Monitor hemoglobin, coagulation studies as needed SKIN: Pressure ulcer prevention per facility protocol Specialty mattress ORTHO/REHAB: Continue PT/OT Prophylaxis: Continue GI and DVT prophylaxis Code Status: Full Resuscitation Disposition: TBD I personally scribed for JEFF GARCIA MD (ISAAC) on 03/15/25 at 21:25. Electronically submitted by Zachery Collazo ([facility]). JEFF GARCIA MD Mar 15, 2025 21:25
--- NOTE | 2025-03-15 21:54 | NUR ---
HEART RATE Patient now at SR 90-100s on telemetry monitoring. Patient resting in bed watching tv. Educated on fall risk precautions and reminded of bedrest order, verbalized understanding. Call light within reach. Bed alarm on.
[2025-03-15] MEDS ORDERED: NICOTINE 14 MG/ 24 HR PATCH TD SCH (22:00)
[2025-03-16] VITALS (14 sets, daily range): BP systolic 141–169; BP diastolic 51–71; PULSE 66–90; RESP 14–18; TEMP 97.4–98.6; O2SAT 96–99
[2025-03-16 04:22] LABS: NUCLEATED RED BLOOD CELLS 0.0 % (0.0-0.19); PLATELET COUNT (AUTO) 140.0 K/uL (130-400); RED BLOOD CELL COUNT(AUTO) 3.87 MIL/uL (4.50-6.20); RED CELL DISTRIBUTION WIDTH 13.5 % (11.0-15.5); WHITE BLOOD COUNT (AUTO) 9.0 K/uL (4.8-10.8)
[2025-03-16 04:40] LABS: CREATININE 0.6 mg/dL (0.5-1.3); GLOMERULAR FILTR. RATE CALC 104.0 mL/min (>90); GLUCOSE,RANDOM 124.0 mg/dL (70-105); SODIUM SERUM 134.0 mmol/L (136-145); UREA NITROGEN, BLOOD 11.0 mg/dL (7-18)
[2025-03-16] MEDS ORDERED: PoTASSium chloRIDE 20MEQ ER 20 MEQ ERTAB PO PRN (08:00)
[2025-03-16] MEDS: DOXYCYCLINE HYCLATE 100 MG TABLET PO SCH (09:37)
--- NOTE | 2025-03-16 09:47 | PN ---
[facility] PROGRESS NOTE Date of Service: Mar 16, 2025 Time of Service: 09:47 SUBJECTIVE: HISTORY OF PRESENT ILLNESS: This is a 69-year-old male,from [facility] here for a vacation, a poor historian with past medical history of COPD,a heavy smoker,Hyperlipidemia,hypertension,peripheral arterial disease,lupus and liver cirrhosis who present to the ED for complaints of cough,nasal congestion,fever and generalized body weakness started 2 days ago and got worse today. Patient reports he has clots on both legs and patient on Eliquis he said.Patient has left lower extremity swelling and redness discoloration.patient has discoloration to right lower extremity as well. Seen and examined patient in the ER awake,alert and coherent.Patient denies chest pain,palpitation shortness of breath. Latest vital signs temperature 98.4, heart rate 96, blood pressure 129/51 saturation 91% on room air. Labs: WBC 11 with negative left shift of neutrophils 87, hemoglobin 13, hematocrit 39 and platelet count 142. Sodium 128, chloride 95, lactic acid 1.9, total calcium 8.4 BNP 180. Influenza type a and B negative SARS COVID negative group a strep negative. Chest x-ray result revealed moderate left basilar infiltrate. Pneumonia likely. Left pleural effusion. Emphysematous lung changes. Right lower extremity arterial Doppler study result revealed atherosclerotic changes in the right lower limb arteries right lower extremity arteries demonstrate biphasic waveforms in common femoral superficial femoral and monophasic in the remainder of the arteries increased velocity in the right common femoral artery. No flow in the dorsalis pedis artery recommend CT or MR angiogram. Venous Doppler to right lower extremity result revealed no deep venous thrombosis evident on the right lower extremity. While in the ER patient received 1 L NS bolus, Tylenol 1000 mg p.o., Solu-Medrol 80 mg IV, DuoNeb treatment, ceftriaxone 1 g IV and azithromycin IV and nicotine patch 14 mg. patient admitted for further medical management. 03/14/2025: Patient was seen and evaluated bedside this morning, family at bedside. He is awake, alert, oriented x3, saturating 91% with2 L nasal cannula. Patient says that he is feeling good, wants to go home. Morning labs revealed white count 5.2, H&H 14.4, 42.1, CRP 79, BUN 10, creatinine 0.7. Chest X-ray revealed left basilar infiltrates, right lower extremity venous Doppler showed no DVT, right lower extremity arterial ultrasound no flow in the dorsalis pedis artery, waveforms in common femoral, superficial femoral, monophasic and remainder of RLE arteries. We will get CT abdominal aorta with BLE runoff, consult cardiology for further evaluation. Patient is currently on IV Solu- Medrol 40 mg b.i.d., IV Rocephin1 g Q 24, IV azithromycin, DuoNebs q.4 and nicotine patch. 03/15/2025: Patient was seen and evaluated bedside this morning, family at bedside. He is awake, alert, confused , saturating 94% with 2 L nasal. Patient says that he wants to back home. Morning labs are unremarkable. CT abdominal aorta with runoff showed atheromatous wall calcifications of aorta, its branches, iliac arteries and both lower limb arteries with multivessel short segment narrowing of common femoral and superficial femoral arteries narrow caliber flow in bilateral popliteal and tibioperoneal arteries. No demonstrable flow in bilateral distal anterior and posterior tibial arteries -moderate peripheral vascular disease. Cardiology recommended outpatient follow up as patient does not want further evaluation and treatment for PAD at this time. On telemetry patient had Had a run of [employer] 230, patient was seen walking around his room, symptomatic. Patient has been started on CIWA protocol, high-dose thiamine, Seroquel 12.5 mg prn t.i.d. for severe agitation as per Psychiatry recommendations. 03/16/2025: Patient was seen and evaluated bedside this morning, no family at bedside. He is awake, alert, oriented x3, saturating 97% with2 L nasal cannula. Patient says that he is doing well, he says that he changed his mind and wants to get procedure done for his severe PAD. Morning labs revealed sodium 134, potassium 3.6, white count 9, H and H 12.4, 36.4, magnesium 2.1, ammonia 23. Pending 2D echocardiogram, chest CT report. Patient continues on CIWA protocol with high-dose thiamine, IV Flagyl, IV doxycycline, IV Rocephin, IV Solu-Medrol. We will reconsult Dr. Cristobal welding lead burner for further evaluation and management of severe PAD. Cardiology, pulmonology on board we will continue to follow their recommendations. REVIEW OF SYSTEMS CONSTITUTIONAL: + fever Denies chills, or night sweats. No unintentional weight loss reported. NEUROLOGICAL: Denies headache, amaurosis fugax, motor weakness, sensory deficit, vertigo/spinning sensation, gait abnormalities, or tremors. ENT: No hearing loss, otalgia, otorrhea, rhinitis, rhinorrhea, hoarseness, or sore throat. CARDIOVASCULAR: Denies any exertional angina, dyspnea on exertion, orthopnea, paroxysmal nocturnal dyspnea, palpitations, life-threatening arrhythmias, claudication. PULMONARY: + productive cough Denies any shortness of breathhemoptysis, pleuritic chest pain. SLEEP: Denies morning headaches, daytime somnolence or napping. Denies difficulty falling asleep, staying asleep, waking from sleep. Denies knowledge of snoring. GASTROINTESTINAL: Denies any type of dysphagia to either liquids or solids. Denies nausea, vomiting, pyrosis, early satiety, abdominal pain, diarrhea, constipation, or changes in stool consistency or caliber. Denies coffee-ground emesis, hematemesis, hematochezia, or melanotic stools. GENITOURINARY: Denies frequency, urgency, nocturia, hematuria or incontinence (Storage/Irritative symptoms.) Low urinary stream, straining to void, urinary intermittency or hesitancy, splitting of the voiding stream, terminal dribbling. ENDOCRINOLOGIC: Denies polyuria, polydipsia, polyphagia or heat/cold intolerances. HEMATOLOGIC: Denies thrombophilia/previous clots, or coagulopathy/bleeding disorders. ONCOLOGIC: Denies personal history of malignancy. DERMATOLOGIC: Denies rashes or pruritus. PSYCHIATRIC: Denies any suicidal or homicidal ideation. Denies hallucinations. PHYSICAL EXAM GENERAL APPEARANCE: The patient is awake, alert, and oriented, in no acute cardiopulmonary distress. NEUROLOGICAL: Cranial nerves II-XII grossly intact. Motor is 5/5 in bilateral upper and lower extremities proximal to distal. No sensory deficits. HEENT: Face is symmetric. Pupils are equal and reactive. Extraocular movements are intact. NECK: Supple. No JVD. No thyromegaly. No submental, submandibular, pre- /postauricular, occipital or supraclavicular lymphadenopathy. CHEST: Normal chest expansion. No Telemetry. LUNGS: Crackles on left lower lobe CARDIOVASCULAR: Regular. S1 and S2 normal. No appreciable rubs, murmurs or gallops. ABDOMEN: Soft, nontender, and nondistended. There is no rebound, voluntary guarding, or rigidity. : Deferred. No Hawley. EXTREMITIES: Hyperpigmentation, dry ulcers on his right 2nd and 5th toes, lack of hair, brittle toenails, cool to touch SKIN: No skin breakdown. Vital Signs (last 8hr) Date Time Temp Pulse Resp B/P (MAP) Pulse Ox O2 Delivery O2 Flow Rate FiO2 03/16/25 09:38 81 03/16/25 08:00 97.9 81 14 169/70 90 Nasal Cannula 2.0 03/16/25 06:28 66 18 N/Cannula Low lpm 2.0 28 03/16/25 06:27 66 18 03/16/25 04:00 97.7 84 16 152/51 97 Nasal Cannula 2.0 LABS: Laboratory: Test 03/16/25 04:15 03/15/25 16:40 03/15/25 16:34 03/15/25 03:58 Range/Units White Blood Count 9.0 4.8-10.8 K/uL Red Blood Count 3.87 L 4.50-6.20 MIL/uL Hemoglobin 12.4 L 14.0-18.0 g/dL Hematocrit 36.4 L 42-54 % Mean Corpuscular Volume 94.1 79-99 fL Mean Corpuscular Hemoglobin 32.0 27.0-33.0 pg Mean Corpuscular Hemoglobin Concent 34.1 32.0-36.0 g/dL Red Cell Distribution Width 13.5 11.0-15.5 % Platelet Count 140 130-400 K/uL Mean Platelet Volume 11.0 H 7.5-10.5 fL Nucleated Red Blood Cells 0.0 0.0-0.19 % Sodium Level 134 L 136-145 mmol/L Potassium Level 3.6 3.5-5.1 mmol/L Chloride Level 99 L 101-111 mmol/L Carbon Dioxide Level 30 21-32 mmol/L Blood Urea Nitrogen 11 7-18 mg/dL Creatinine 0.6 0.5-1.3 mg/dL Glomerular Filtration Rate Calc 104 >90 mL/min Random Glucose 124 H 70-105 mg/dL Total Calcium 8.2 L 8.5-10.1 mg/dL Magnesium Level 2.10 1.80-2.40 mg/dL Ammonia 23 11-32 umol/L Urine Opiates Screen NEGATIVE NEGATIVE Urine Barbiturates Screen NEGATIVE NEGATIVE Urine Phencyclidine Screen NEGATIVE NEGATIVE Urine Amphetamines Screen NEGATIVE NEGATIVE Urine Benzodiazepines Screen NEGATIVE NEGATIVE Urine Cocaine Screen NEGATIVE NEGATIVE Urine Marijuana (THC) Screen NEGATIVE NEGATIVE Whole Blood Glucose 191 H 70-110 MG/DL B-Type Natriuretic Peptide 457 H 0-100 pg/mL Test 03/14/25 18:30 03/14/25 16:14 Range/Units Urine Osmolality 328 50-1200 mOsm/kg Urine Random Sodium 37 L 40-220 mmol/l Serum Osmolality 266 L 278-305 mOsm/kg Thyroid Stimulating Hormone (TSH) 0.23 L 0.36-3.74 uIU/mL Current Medications Medications (Trade) Dose Ordered Sig/Carmen Route PRN Reason Start Time Stop Time Status Last Admin Dose Admin Acetaminophen (TYLenol 325MG TAB) 650 mg Q4H PRN PO MILD PAIN (1-3) 03/14/25 00:00 04/13/25 00:00 Acetaminophen (TYLenol 325MG TAB) 650 mg Q6H PRN PO TEMPERATURE GREATER THAN 101.5 03/14/25 00:00 04/13/25 00:00 Acetaminophen (TYLenol 500MG TAB) 500 mg Q6H PRN PO TEMP < 101.1 AND/OR HEADACHE 03/15/25 18:00 04/14/25 17:59 Albuterol (DUOneb) 1 udvial [id number] IH 03/14/25 02:00 03/15/25 22:41 DC 03/15/25 18:32 1 UDVIAL Apixaban (EliquIS) 5 mg BID PO 03/14/25 21:00 04/13/25 20:59 03/16/25 09:38 5 MG Atorvastatin Calcium (LIPItor 40MG) 40 mg DAILY PO 03/15/25 09:00 04/14/25 08:59 03/16/25 09:38 40 MG Azithromycin 250 ml @ 250 mls/hr Q24H IV 03/14/25 00:00 03/15/25 22:41 DC 03/15/25 01:20 250 MLS/HR Ceftriaxone Sodium 1 gm/ Sodium Chloride 50 ml @ 100 mls/hr Q24H IV 03/14/25 00:00 03/14/25 00:10 DC Ceftriaxone Sodium (ROCEphine 1G INJ) 1 gm Q24H IVPB 03/14/25 00:30 03/24/25 00:29 03/16/25 00:38 1 GM Chlordiazepoxide HCl (LIBrium 25 MG CAP) 25 mg Q2H PRN PO ALCOHOL WITHDRAWAL PROTOCOL 03/15/25 18:00 03/22/25 17:59 03/15/25 21:47 25 MG Chlordiazepoxide HCl (LIBrium 25 MG CAP) 50 mg Q1H PRN PO ALCOHOL WITHDRAWAL PROTOCOL 03/15/25 18:00 03/22/25 17:59 Digoxin (LANOxin 125mcg) 125 mcg AM PO 03/15/25 09:00 04/14/25 08:59 03/16/25 09:38 125 MCG Diltiazem HCl (CARDIzem 120MG CD) 120 mg HS PO 03/14/25 21:00 04/13/25 20:59 03/15/25 20:31 120 MG Diltiazem HCl (CARDIzem 120MG CD) 240 mg DAILY PO 03/15/25 09:00 04/14/25 08:59 03/16/25 09:39 240 MG Doxycycline Hyclate (Doxycycline Hyclate) 100 mg BID PO 03/16/25 09:00 03/26/25 08:59 03/16/25 09:37 100 MG Duloxetine HCl (CymbALTA 30 mg CAP) 60 mg DAILY PO 03/15/25 09:00 04/14/25 08:59 03/16/25 09:38 60 MG Famotidine (Pepcid 20mg Tab) 20 mg DAILY PO 03/14/25 09:00 04/13/25 08:59 03/16/25 09:38 20 MG Ferrous Fumarate (Hemocyte) 324 mg AM PO 03/15/25 09:00 04/14/25 08:59 03/16/25 09:39 324 MG Folic Acid (FOLic ACID 1 MG TABLET) 1 mg DAILY PO 03/15/25 09:00 04/14/25 08:59 03/16/25 09:39 1 MG Home Med (Home Medication) (Fluticasone/ Umeclidin/ Vilan... DAILY IH 03/15/25 09:00 04/14/25 08:59 Hydroxychloroquine Sulfate (PLAQuenil 200MG) 200 mg BID PO 03/14/25 21:00 03/28/25 20:59 03/16/25 09:38 200 MG Ipratropium Babcock (AtrovENT UD) 0.5 MG [id number] IH 03/16/25 00:00 04/15/25 00:00 03/16/25 06:25 0.5 MG Methylprednisolone Sodium Succinate (Solu-medROL 40MG) 40 mg BID IVP 03/14/25 09:00 04/13/25 08:59 03/16/25 09:39 40 MG Metronidazole/ Sodium Chloride (flaGYL) 500 mg Q8H IV 03/15/25 18:00 03/25/25 17:59 03/16/25 09:37 500 MG Miscellaneous Medication (Oxycodone HCl ) 1 tab BID PRN PO pain 03/14/25 10:30 03/14/25 11:26 DC Miscellaneous Medication (Oxycodone HCl ) 1 tab BID PRN PO pain 03/14/25 10:30 03/14/25 11:26 DC Nicotine (Nicoderm) 14 mg DAILY TD 03/15/25 22:00 03/14/25 16:06 DC Nicotine (Nicoderm) 21 mg Q24H TD 03/15/25 13:00 04/14/25 12:59 03/15/25 13:18 21 MG Ondansetron HCl (zoFRAN 4MG INJ) 4 mg Q4H PRN IV NAUSEA 03/15/25 18:00 04/14/25 17:59 Ondansetron HCl (zoFRAN 4MG INJ) 4 mg Q6H PRN IV NAUSEA/VOMITING 03/14/25 00:00 03/15/25 18:07 DC Oxycodone HCl (ROXicoDONE) 10 mg BID PRN PO SEVERE PAIN (7-10) 03/15/25 00:30 03/15/25 17:43 DC 03/15/25 09:27 10 MG Oxycodone HCl (ROXicoDONE) 10 mg TIDP PRN PO SEVERE PAIN (7-10) 03/15/25 18:00 03/22/25 17:59 03/16/25 04:53 10 MG Oxycodone HCl (ROXicoDONE) 20 mg BID PRN PO SEVERE PAIN (7-10) 03/15/25 00:30 03/15/25 00:32 DC Pharmacy Profile Note (Pharmacy Communication) 1 each PROTOCOL PRN MISC ETOH Withdrawal Score changes 03/15/25 18:00 03/15/25 22:46 DC Potassium Chloride (K-Dur/Klor-Con 20meq) 20 meq AD PRN PO POTASSIUM PROTOCOL 03/16/25 08:00 04/15/25 07:59 Potassium Chloride (KCl 10% Elixir 20meq/15ml) 20 meq AD PRN PO POTASSIUM PROTOCOL 03/16/25 08:00 04/15/25 07:59 Pregabalin (NJPirg83AY) 150 mg TID PO 03/14/25 14:00 04/13/25 13:59 03/16/25 09:37 150 MG Quetiapine Fumarate (SEROquel 25 mg TAB) 12.5 mg TIDP PO 03/15/25 18:00 04/14/25 17:59 Sodium Chloride 1,000 ml @ 100 mls/hr Q10H IV 03/14/25 00:00 03/14/25 18:54 DC Thiamine HCl (Vitamin B-1) 250 mg TID IV 03/15/25 21:00 03/16/25 14:01 03/16/25 09:39 250 MG Thiamine HCl 100 mg/Folic Acid 1 mg/Multivitamins/ Minerals 10 ml/ Sodium Chloride 1,011.2 ml @ 100 mls/ hr Q24H IV 03/15/25 18:30 03/18/25 04:37 03/15/25 18:29 100 MLS/HR Valacyclovir HCl (ValtREX) 500 mg BID PO 03/14/25 21:00 04/13/25 20:59 03/16/25 09:39 500 MG DIAGNOSTICS / RADIOLOGY: [ ] ASSESSMENT: Sepsis due to community-acquired pneumonia POA COPD exacerbation POA Acute respirsatory failure POA Alcohol use disorder W/withdrawal Acute anemia POA Hyponatremia POA Hypochloremia POA Hypocalcemia POA Elevated BNP POA Peripheral arterial disease POA Hypertension POA Hyperlipidemia POA Nicotine dependence POA PLAN: Sepsis due to community-acquired pneumonia POA COPD exacerbation POA Acute respirsatory failure POA On presentation heart rate 113, temperature 99.9, white count 11.7, lactic acid 1.9 Chest x-ray showed moderate left basilar infiltrates likely pneumonia. Continue Rocephin IV 1 g Q 24, IV Flagyl Q8 Continue IV Solu-Medrol 40 mg b.i.d., DuoNebs q.4 Patient was started on doxycycline 100 mg b.i.d. PO by pulmonology White count today 9 Pulmonology on board Peripheral arterial disease POA Arterial ultrasound of right lower extremity showed basically from seen, femoral, superficial femoral and monophasic in the remainder of the arteries. No flow in dorsalis pedis artery. Ultrasound of right lower extremity showed no DVT CT abdominal aorta with BLE runoff revealed atheromatous wall calcifications of aorta, its branches, iliac arteries and both lower limb arteries with m ultivessel short segment narrowing of common femoral and superficial femoral arteries narrow caliber flow in bilateral popliteal and tibioperoneal arteries. No demonstrable flow in bilateral distal anterior and posterior tibial arteries -moderate peripheral vascular disease. Cardiology recommended outpatient follow up as patient does not want further evaluation and treatment at hospital at this point of time. On 03/16/2025 patient said that he wants to get procedure done for his PAD, we will reconsult for further evaluation and management Alcohol use disorder W/withdrawal Patient is approximately 72 hours from his last drink, eating very poorly prior to admission and drinking 2 pint per day Patient is started on CIWA protocol High-dose thiamine 250 mg IV t.i.d. for possible Wernicke's Seroquel 12.5 mg t.i.d. p.r.n. for acute agitation, aggression or psychosis Hyponatremia POA On presentation sodium 128 Today sodium 134 All home medications have been reconciled and resumed Nicotine patch14 mg for nicotine dependence GI prophylaxis with Pepcid 20 mg DVT prophylaxis with Eliquis5 mg ATTESTATION BY PHYSICIAN I have seen and examined the patient. I reviewed the documentation, medical decision making, and treatment plan as noted by the resident physician above. I agree with the findings and plan of care. ROBERT SCHMIDT MD, ADIL SHAH QUADRI MD Mar 16, 2025 09:47
[2025-03-16] MEDS: PoTASSium chl 10% ELIXIR 20MEQ 20 MEQ/15 ML UDCUP PO PRN (10:32)
--- NOTE | 2025-03-16 12:15 | NUR ---
BEDSIDE SWALLOW EVAL COMPLETED. No s/s of aspiration. RECOMMEND: regular solids, thin liquids and pills whole with liquids as tolerated. COMPENSATORY STRATEGIES: 1. sit upright during oral intake 2. small bites/sips 3. slow oral intake 4. wear dentures PORTFOLIO ARCHITECT reviewed results and recommendations with patient, family and nurse Emil. PORTFOLIO ARCHITECT educated patient on risks and consequences of aspiration. Speech therapy not warranted at this time. All questions answered. Addendum: 03/16/[address] [facility] LOVE Amended: Links added.
--- NOTE | 2025-03-16 20:19 | PN ---
[facility] PROGRESS NOTE Date Patient Seen: Mar 16, 2025 Time of Visit: 20:19 Supervising Physician: Dr. Almita Lainez Consult reason: Pneumonia present on admission Primary Care Physician: [ ] Outpatient Specialists: [ ] Inpatient Consults: BIS PROBLEM LIST: Community-acquired pneumonia present on admission Acute COPD exacerbation secondary to community-acquired pneumonia Alcoholic liver cirrhosis Alcohol use disorder Alcohol withdrawal syndrome Tobacco use disorder Severe protein calorie malnutrition secondary to chronic alcohol use disorder Hypertension Hyperlipidemia Underlying systemic lupus erythematosus Critical illness myopathy Sarcopenia INTERVAL HISTORY: The patient was examined seen while resting in bed head of the bed elevated, awake alert and oriented, appears in no acute distress. Accompanied by patient's bedside nurse. Reviewed and discussed with the patient the following: Lab values: WBC 9.0, hemoglobin 12.4, hematocrit 36.4%, platelets 140, sodium 134, potassium 3.6, CO2 30, BUN 11, creatinine 0.6, GFR 104, magnesium 2.1, and ammonia level 23 Vital signs: Temperature 98.1, pulse 79, respirations 14 blood pressure 141/71, oxygen saturation 93% on room air FiO2 21. Medications reviewed and discussed: Doxycycline 100 mg p.o. q.12 hours, electrolyte replacement protocol banana bag 100 mL Q 24 hours metronidazole 500 mg p.o. q.8 hours, ceftriaxone 1 g IV Q 24 hours CIWA protocol. After discussion there were no questions or concerns voiced by patient nor family members. Further orders per course of stay. A.m. labs ordered REVIEW OF SYSTEMS: Unable to obtain from patient due to underlying encephalopathy PHYSICAL EXAM: GENERAL: Confused, agitated and nonverbal. Does not follow commands., Obtunded. HEENT: EOMI, Sclera non icteric, moist mucosa NECK: Supple, no JVD, trachea midline LUNGS: Clear breath sounds bilaterally. No wheezes. Decreased breath sound left side. HEART: Regular rate and rhythm. Normal S1 and S2, without murmurs ABD: Abdomen soft, nontender. Bowel sounds present EXT: No clubbing cyanosis or edema NEURO: Alert and oriented to person, follows commands Vital Signs (last 8hr) Date Time Temp Pulse Resp B/P (MAP) Pulse Ox O2 Delivery O2 Flow Rate FiO2 03/16/25 18:58 82 18 N/A Room Air 21 03/16/25 18:56 82 18 03/16/25 16:00 98.1 76 14 160/59 99 Room Air LABS: Hematology Labs: Test 03/16/25 04:15 Range/Units White Blood Count 9.0 4.8-10.8 K/uL Red Blood Count 3.87 L 4.50-6.20 MIL/uL Hemoglobin 12.4 L 14.0-18.0 g/dL Hematocrit 36.4 L 42-54 % Mean Corpuscular Volume 94.1 79-99 fL Mean Corpuscular Hemoglobin 32.0 27.0-33.0 pg Mean Corpuscular Hemoglobin Concent 34.1 32.0-36.0 g/dL Red Cell Distribution Width 13.5 11.0-15.5 % Platelet Count 140 130-400 K/uL Mean Platelet Volume 11.0 H 7.5-10.5 fL Nucleated Red Blood Cells 0.0 0.0-0.19 % Chemistry Labs: Test 03/16/25 04:15 03/15/25 16:34 03/15/25 03:58 Range/Units Sodium Level 134 L 136-145 mmol/L Potassium Level 3.6 3.5-5.1 mmol/L Chloride Level 99 L 101-111 mmol/L Carbon Dioxide Level 30 21-32 mmol/L Blood Urea Nitrogen 11 7-18 mg/dL Creatinine 0.6 0.5-1.3 mg/dL Glomerular Filtration Rate Calc 104 >90 mL/min Random Glucose 124 H 70-105 mg/dL Total Calcium 8.2 L 8.5-10.1 mg/dL Magnesium Level 2.10 1.80-2.40 mg/dL Ammonia 23 11-32 umol/L Whole Blood Glucose 191 H 70-110 MG/DL B-Type Natriuretic Peptide 457 H 0-100 pg/mL DIAGNOSTICS / RADIOLOGY RESULTS: [ ] PLAN Add Flagyl 500 mg IV every 8 hours to current antibiotic regimen Follow [facility] protocol CT scan of the chest without contrast IV hydration with D5W Aspiration precautions NEURO: Minimize central acting medications as possible. Maintain fall precautions, adequate lighting during the day PULMONARY: Supplemental 02 as needed. Maintain aspiration precautions at all times CARDIOVASCULAR: Follow hemodynamics. Vital signs per facility protocol GI & NUTRITION: Continue with nutritional support. Continue stool softeners and laxatives as needed. KIDNEYS & ELECTROLYTES: Strict monitoring of intake, output and overall fluid balance. Avoid nephrotoxic medications to the extent possible. Medications to be dosed according to renal function. Monitor electrolytes and replace as needed ENDOCRINE: Maintain blood glucose between 100-180 at all times. Hypoglycemia protocol in place INFECTIOUS DISEASE: Trend temperature, WBC and procalcitonin level Follow cultures, deescalate antibiotics as soon as possible. Panculture if new onset fever ONCOLOGY/HEMATOLOGY/COAGULATION: Monitor for s/s of bleeding Monitor hemoglobin, coagulation studies as needed SKIN: Pressure ulcer prevention per facility protocol Specialty mattress ORTHO/REHAB: Continue PT/OT Prophylaxis: Continue GI and DVT prophylaxis Code Status: Full Resuscitation Disposition: ARIADNA BRINK AGACNP Mar 16, 2025 20:19
--- NOTE | 2025-03-16 21:39 | HMCIMG ---
EXAM: CT SCAN OF THE CHEST WITHOUT CONTRAST Clinical statement: Community-acquired pneumonia; coronal CT chest. STUDY PROTOCOL: A multislice CT scan of the chest was performed without intravenous contrast. Axial images were obtained from the thoracic inlet through the upper abdomen with multiplanar reformations. RADIATION DOSE: CTDIvol 6.10 mGy; DLP 254.20 mGycm. CONTRAST: No intravenous contrast administered. COMPARISON: Chest radiograph from 03/13/2025. FINDINGS: Soft tissues: Visualized soft tissues of the chest wall and lower neck are unremarkable without focal mass or fluid collection. Lungs and large airways: Trachea and main bronchi are patent. There is subsegmental atelectasis within the lingula of the left upper lobe. Subsegmental consolidation is present in the left lower lobe, compatible with focal airspace disease. Diffuse emphysematous changes involve both lungs, with centrilobular, subpleural, and paraseptal cystic lucencies of varying size. A few small fibrotic-appearing nodules are present in the right upper lobe. No discrete suspicious noncalcified pulmonary mass is identified. Pleura: Moderate left pleural effusion is present. No right pleural effusion or pleural-based mass is seen. No pneumothorax is identified. Heart and pericardium: Heart size is within normal limits. No pericardial effusion is seen. Moderate coronary and aortic root calcifications are present, compatible with atherosclerotic disease. Aorta: Thoracic aorta is normal in caliber without aneurysm or dissection. Moderate aortic wall calcifications are present, consistent with atherosclerosis. Pulmonary arteries: Main and central pulmonary arteries are normal in caliber on these noncontrast images; evaluation for pulmonary embolism is limited without contrast. Lymph nodes: No enlarged mediastinal, hilar, or axillary lymph nodes are identified. Mediastinum and quin: Mediastinal structures and quin are unremarkable without focal mass or abnormal soft tissue density. Chest wall and lower neck: No chest wall mass, hematoma, or subcutaneous emphysema is identified. Bones/joints: No acute rib fracture or other acute osseous injury is identified. There is diffuse osteopenia. Degenerative changes are present in the thoracic spine with a chronic moderate compression deformity of T8. No aggressive osseous lesion is seen. Upper abdomen: Visualized upper abdominal organs are otherwise unremarkable. A 3 mm calculus is present in the right kidney, consistent with a small nonobstructing renal calculus. IMPRESSION: * Subsegmental consolidation in the left lower lobe with moderate left pleural effusion in a patient with clinical history of community-acquired pneumonia, compatible with pneumonia and likely parapneumonic effusion. Recommend appropriate antimicrobial therapy and follow-up chest radiograph in approximately 68 weeks to document resolution, particularly if the patient has risk factors for malignancy. * Subsegmental atelectasis in the lingula of the left upper lobe. * Diffuse emphysematous changes in both lungs with a few small fibrotic nodules in the right upper lobe, compatible with chronic smoking-related/emphysematous lung disease and postinflammatory scarring. * Chronic thoracic spine changes including osteopenia, degenerative changes, and chronic moderate compression deformity of T8, without acute osseous injury. * Small nonobstructing 3 mm right renal calculus. * Compared with the chest radiograph from 03/13/2025, CT confirms left basilar airspace disease and left pleural effusion corresponding to the prior reported infiltrate and effusion, with similar emphysematous changes and no additional acute cardiopulmonary abnormality identified. /Brimson
--- NOTE | 2025-03-16 23:37 | HMCSR ---
APPROVED REPORT EXAM: Two-dimensional and M-mode echocardiogram with Doppler and color Doppler. INDICATION ICD: congestive heart failure 2D Dimensions RVDd 3.8 cm LVEF(%) 47.5 (>50%) LVED Vol(simp.) 86.9 mL IVSd 1.7 (0.7-1.1cm) FS(%) 23 % LVES Vol(simp.) 33.6 mL LVDd 2.8 (3.8-5.6cm) LA (2D) 3.0 (1.6-4.0cm) LVEF(%, simp.) 61 % PWd 1.9 (0.7-1.1cm) Ao Root(2D) 3.1 (2.0-3.7cm) LA ESV INDEX (BP) 59.51 mL/m2 LVDs 2.2 (2.5-4.0cm) LVOT diam 2.3 (1.8-2.4cm) IVC diam 1.6 cm Deformation Strain Apical 4 -12.0 % Apical 2 -14.6 % Apical 3 -12.9 % Global Strain -13.2 % M-Mode Dimensions EPSS 1.3 cm LA (MM) 3.8 (1.6-4.0cm) Ao Root(MM) 3.3 (2.0-3.7cm) Aortic Valve AoV Vmax 3.4 m/s Ao Peak GR 45.9 mmHg LVOT Vmax 1.0 m/s AoV VTI 0.7 m Ao Mean GR 23.6 mmHg LVOT VTI 0.19 m VIPUL (VMAX) 1.22 cm2 Al P1/2T 330 ms VIPUL (VTI) 1.1 cm2 Mitral Valve MV E Vmax 134.8 cm/s DECEL Time 197 ms MV A Vmax 147.3 cm/s P 1/2 T 77 ms E/A ratio 0.9 MVA (PHT) 2.9 cm2 TDI E/E' Medial 23.0 E/E' Lateral 20.1 Medial E' Peak V 5.85 cm/s Lateral E' Peak V 6.72 cm/s Tricuspid Valve TR Vmax 2.4 m/s RAP (EST) 3 mmHg RVSP 25.1 mmHg TR Peak GR 22.1 mmHg Left Ventricle The left ventricle is normal size. No regional wall motion abnormalities noted. Severe concentric left ventricular hypertrophy. Left ventricular systolic function is normal, estimated LVEF is 55-60%. Stage I diastolic dysfunction. Right Ventricle The right ventricle is normal size. The right ventricular systolic function is normal. Atria The left atrium is severely dilated, 60 ml/m2. The The right atrium size is normal. Aortic Valve Aortic valve is trileaflet. The leaflets are thickened and calcified. Moderate aortic regurgitation, pressure half-time 295 ms Moderate aortic stenosis: Peak velocity 3.3 m/s, mean gradient 26 mmHg Mitral Valve Mild mitral annular calcification is noted. The leaflets are moderately thickened and calcified. Trace mitral regurgitation. There is no mitral valve stenosis. Tricuspid Valve The tricuspid valve is normal in structure. Trace tricuspid regurgitation. RVSP is 22 mmHg. Pulmonic Valve Pulmonic valve is not well visualized. Great Vessels The aortic root is normal in size. The IVC is normal in size and collapses >50% with inspiration. Pericardium There is no pericardial effusion. Conclusion The left atrium is severely dilated, 60 ml/m2. The Severe concentric left ventricular hypertrophy. No regional wall motion abnormalities noted. Left ventricular systolic function is normal, estimated LVEF is 55-60%. Stage I diastolic dysfunction. Moderate aortic stenosis: Peak velocity 3.3 m/s, mean gradient 26 mmHg Moderate aortic regurgitation, pressure half-time 295 ms. Trace mitral regurgitation. Trace tricuspid regurgitation. PASP is 25 mmHg. There is no pericardial effusion.
[2025-03-17] VITALS (15 sets, daily range): BP systolic 117–159; BP diastolic 70–88; PULSE 68–96; RESP 13–20; TEMP 97.4–98.2; O2SAT 93–100
[2025-03-17 04:21] LABS: NUCLEATED RED BLOOD CELLS 0.0 % (0.0-0.19); PLATELET COUNT (AUTO) 151.0 K/uL (130-400); RED BLOOD CELL COUNT(AUTO) 3.93 MIL/uL (4.50-6.20); RED CELL DISTRIBUTION WIDTH 13.3 % (11.0-15.5); WHITE BLOOD COUNT (AUTO) 9.2 K/uL (4.8-10.8)
[2025-03-17 04:31] LABS: ASPARTATE AMINOTRANSFERASE 29.0 U/L (10-37); CREATININE 0.5 mg/dL (0.5-1.3); GLOMERULAR FILTR. RATE CALC 110.0 mL/min (>90); GLUCOSE,RANDOM 104.0 mg/dL (70-105); SODIUM SERUM 131.0 mmol/L (136-145); TOTAL PROTEIN, SERUM 6.2 g/dL (6.0-8.3); UREA NITROGEN, BLOOD 15.0 mg/dL (7-18)
--- NOTE | 2025-03-17 08:50 | PN ---
[facility] PROGRESS NOTE Date of Service: Mar 17, 2025 Time of Service: 08:49 SUBJECTIVE: HISTORY OF PRESENT ILLNESS: This is a 69-year-old male,from [facility] here for a vacation, a poor historian with past medical history of COPD,a heavy smoker,Hyperlipidemia,hypertension,peripheral arterial disease,lupus and liver cirrhosis who present to the ED for complaints of cough,nasal congestion,fever and generalized body weakness started 2 days ago and got worse today. Patient reports he has clots on both legs and patient on Eliquis he said.Patient has left lower extremity swelling and redness discoloration.patient has discoloration to right lower extremity as well. Seen and examined patient in the ER awake,alert and coherent.Patient denies chest pain,palpitation shortness of breath. Latest vital signs temperature 98.4, heart rate 96, blood pressure 129/51 saturation 91% on room air. Labs: WBC 11 with negative left shift of neutrophils 87, hemoglobin 13, hematocrit 39 and platelet count 142. Sodium 128, chloride 95, lactic acid 1.9, total calcium 8.4 BNP 180. Influenza type a and B negative SARS COVID negative group a strep negative. Chest x-ray result revealed moderate left basilar infiltrate. Pneumonia likely. Left pleural effusion. Emphysematous lung changes. Right lower extremity arterial Doppler study result revealed atherosclerotic changes in the right lower limb arteries right lower extremity arteries demonstrate biphasic waveforms in common femoral superficial femoral and monophasic in the remainder of the arteries increased velocity in the right common femoral artery. No flow in the dorsalis pedis artery recommend CT or MR angiogram. Venous Doppler to right lower extremity result revealed no deep venous thrombosis evident on the right lower extremity. While in the ER patient received 1 L NS bolus, Tylenol 1000 mg p.o., Solu-Medrol 80 mg IV, DuoNeb treatment, ceftriaxone 1 g IV and azithromycin IV and nicotine patch 14 mg. patient admitted for further medical management. 03/14/2025: Patient was seen and evaluated bedside this morning, family at bedside. He is awake, alert, oriented x3, saturating 91% with2 L nasal cannula. Patient says that he is feeling good, wants to go home. Morning labs revealed white count 5.2, H&H 14.4, 42.1, CRP 79, BUN 10, creatinine 0.7. Chest X-ray revealed left basilar infiltrates, right lower extremity venous Doppler showed no DVT, right lower extremity arterial ultrasound no flow in the dorsalis pedis artery, waveforms in common femoral, superficial femoral, monophasic and remainder of RLE arteries. We will get CT abdominal aorta with BLE runoff, consult cardiology for further evaluation. Patient is currently on IV Solu- Medrol 40 mg b.i.d., IV Rocephin1 g Q 24, IV azithromycin, DuoNebs q.4 and nicotine patch. 03/15/2025: Patient was seen and evaluated bedside this morning, family at bedside. He is awake, alert, confused , saturating 94% with 2 L nasal. Patient says that he wants to back home. Morning labs are unremarkable. CT abdominal aorta with runoff showed atheromatous wall calcifications of aorta, its branches, iliac arteries and both lower limb arteries with multivessel short segment narrowing of common femoral and superficial femoral arteries narrow caliber flow in bilateral popliteal and tibioperoneal arteries. No demonstrable flow in bilateral distal anterior and posterior tibial arteries -moderate peripheral vascular disease. Cardiology recommended outpatient follow up as patient does not want further evaluation and treatment for PAD at this time. On telemetry patient had Had a run of V-tach 230, patient was seen walking around his room, symptomatic. Patient has been started on CIWA protocol, high-dose thiamine, Seroquel 12.5 mg prn t.i.d. for severe agitation as per Psychiatry recommendations. 03/16/2025: Patient was seen and evaluated bedside this morning, no family at bedside. He is awake, alert, oriented x3, saturating 97% with2 L nasal cannula. Patient says that he is doing well, he says that he changed his mind and wants to get procedure done for his severe PAD. Morning labs revealed sodium 134, potassium 3.6, white count 9, H and H 12.4, 36.4, magnesium 2.1, ammonia 23. Pending 2D echocardiogram, chest CT report. Patient continues on CIWA protocol with high-dose thiamine, IV Flagyl, IV doxycycline, IV Rocephin, IV Solu-Medrol. We will reconsult Dr. Cristobal dowel sticker operator for further evaluation and management of severe PAD. Cardiology, pulmonology on board we will continue to follow their recommendations. 03/17/2025: Patient was seen and evaluated this morning, no family at bedside. He is awake, alert, oriented x3, saturating 94% at room air. Patient says that he is doing good, denies any new or worsening symptoms. Labs revealed white count 9.2, H&H 12.6, 37.9, sodium 131, potassium 3.8. 2D echo showed LVEF 55- 60%, stage I diastolic dysfunction, severe concentric left ventricular hy pertrophy. CT chest showed segmental consolidation in left lower lobe with moderate left pleural effusion compatible with pneumonia and left parapneumonic effusion, chronic smoking related/emphysematous lung disease and post inflammatory scarring. Respiratory culture showed growth of Klebsiella , Niki albicans. IV Rocephin has been stopped, patient was started on Zosyn, continue CIWA protocol with high-dose thiamine, IV Flagyl, IV doxycycline, IV Solu-Medrol. Cardiology, pulmonology on board we will continue to follow their recommendations. REVIEW OF SYSTEMS CONSTITUTIONAL: + fever Denies chills, or night sweats. No unintentional weight loss reported. NEUROLOGICAL: Denies headache, amaurosis fugax, motor weakness, sensory deficit, vertigo/spinning sensation, gait abnormalities, or tremors. ENT: No hearing loss, otalgia, otorrhea, rhinitis, rhinorrhea, hoarseness, or sore throat. CARDIOVASCULAR: Denies any exertional angina, dyspnea on exertion, orthopnea, paroxysmal nocturnal dyspnea, palpitations, life-threatening arrhythmias, claudication. PULMONARY: + productive cough Denies any shortness of breathhemoptysis, pleuritic chest pain. SLEEP: Denies morning headaches, daytime somnolence or napping. Denies dif ficulty falling asleep, staying asleep, waking from sleep. Denies knowledge of snoring. GASTROINTESTINAL: Denies any type of dysphagia to either liquids or solids. Denies nausea, vomiting, pyrosis, early satiety, abdominal pain, diarrhea, constipation, or changes in stool consistency or caliber. Denies coffee-ground emesis, hematemesis, hematochezia, or melanotic stools. GENITOURINARY: Denies frequency, urgency, nocturia, hematuria or incontinence (Storage/Irritative symptoms.) Low urinary stream, straining to void, urinary intermittency or hesitancy, splitting of the voiding stream, terminal dribbling. ENDOCRINOLOGIC: Denies polyuria, polydipsia, polyphagia or heat/cold i ntolerances. HEMATOLOGIC: Denies thrombophilia/previous clots, or coagulopathy/bleeding disorders. ONCOLOGIC: Denies personal history of malignancy. DERMATOLOGIC: Denies rashes or pruritus. PSYCHIATRIC: Denies any suicidal or homicidal ideation. Denies hallucinations. PHYSICAL EXAM GENERAL APPEARANCE: The patient is awake, alert, and oriented, in no acute cardiopulmonary distress. NEUROLOGICAL: Cranial nerves II-XII grossly intact. Motor is 5/5 in bilateral upper and lower extremities proximal to distal. No sensory deficits. HEENT: Face is symmetric. Pupils are equal and reactive. Extraocular movements are intact. NECK: Supple. No JVD. No thyromegaly. No submental, submandibular, pre- /postauricular, occipital or supraclavicular lymphadenopathy. CHEST: Normal chest expansion. No Telemetry. LUNGS: Crackles on left lower lobe CARDIOVASCULAR: Regular. S1 and S2 normal. No appreciable rubs, murmurs or gallops. ABDOMEN: Soft, nontender, and nondistended. There is no rebound, voluntary guarding, or rigidity. : Deferred. No Hawley. EXTREMITIES: Hyperpigmentation, dry ulcers on his right 2nd and 5th toes, lack of hair, brittle toenails, cool to touch SKIN: No skin breakdown. Vital Signs (last 8hr) Date Time Temp Pulse Resp B/P (MAP) Pulse Ox O2 Delivery O2 Flow Rate FiO2 03/17/25 08:11 97.3 96 13 124/74 99 Room Air 03/17/25 06:10 79 18 N/A Room Air 21 03/17/25 06:08 79 18 03/17/25 03:49 98.1 71 17 152/70 94 Room Air LABS: Laboratory: Test 03/17/25 03:57 03/16/25 04:15 03/15/25 16:40 03/15/25 16:34 Range/Units White Blood Count 9.2 4.8-10.8 K/uL Red Blood Count 3.93 L 4.50-6.20 MIL/uL Hemoglobin 12.6 L 14.0-18.0 g/dL Hematocrit 37.9 L 42-54 % Mean Corpuscular Volume 96.4 79-99 fL Mean Corpuscular Hemoglobin 32.1 27.0-33.0 pg Mean Corpuscular Hemoglobin Concent 33.2 32.0-36.0 g/dL Red Cell Distribution Width 13.3 11.0-15.5 % Platelet Count 151 130-400 K/uL Mean Platelet Volume 10.8 H 7.5-10.5 fL Nucleated Red Blood Cells 0.0 0.0-0.19 % Sodium Level 131 L 136-145 mmol/L Potassium Level 3.8 3.5-5.1 mmol/L Chloride Level 97 L 101-111 mmol/L Carbon Dioxide Level 29 21-32 mmol/L Blood Urea Nitrogen 15 7-18 mg/dL Creatinine 0.5 0.5-1.3 mg/dL Glomerular Filtration Rate Calc 110 >90 mL/min Random Glucose 104 70-105 mg/dL Total Calcium 8.3 L 8.5-10.1 mg/dL Total Bilirubin 0.4 0.2-1.0 mg/dL Aspartate Amino Transf (AST/SGOT) 29 10-37 U/L Alanine Aminotransferase (ALT/SGPT) 31 12-78 U/L Alkaline Phosphatase 83 50-136 U/L Total Protein 6.2 6.0-8.3 g/dL Albumin 2.6 L 3.5-5.0 g/dL Magnesium Level 2.10 1.80-2.40 mg/dL Ammonia 23 11-32 umol/L Urine Opiates Screen NEGATIVE NEGATIVE Urine Barbiturates Screen NEGATIVE NEGATIVE Urine Phencyclidine Screen NEGATIVE NEGATIVE Urine Amphetamines Screen NEGATIVE NEGATIVE Urine Benzodiazepines Screen NEGATIVE NEGATIVE Urine Cocaine Screen NEGATIVE NEGATIVE Urine Marijuana (THC) Screen NEGATIVE NEGATIVE Whole Blood Glucose 191 H 70-110 MG/DL Current Medications Medications (Trade) Dose Ordered Sig/Carmen Route PRN Reason Start Time Stop Time Status Last Admin Dose Admin Acetaminophen (TYLenol 325MG TAB) 650 mg Q4H PRN PO MILD PAIN (1-3) 03/14/25 00:00 04/13/25 00:00 Acetaminophen (TYLenol 325MG TAB) 650 mg Q6H PRN PO TEMPERATURE GREATER THAN 101.5 03/14/25 00:00 04/13/25 00:00 Acetaminophen (TYLenol 500MG TAB) 500 mg Q6H PRN PO TEMP < 101.1 AND/OR HEADACHE 03/15/25 18:00 04/14/25 17:59 Albuterol (DUOneb) 1 udvial [id number] IH 03/14/25 02:00 03/15/25 22:41 [place] 03/15/25 18:32 1 UDVIAL Apixaban (EliquIS) 5 mg BID PO 03/14/25 21:00 04/13/25 20:59 03/16/25 20:54 5 MG Atorvastatin Calcium (LIPItor 40MG) 40 mg DAILY PO 03/15/25 09:00 04/14/25 08:59 03/16/25 09:38 40 MG Azithromycin 250 ml @ 250 mls/hr Q24H IV 03/14/25 00:00 03/15/25 22:41 DC 03/15/25 01:20 250 MLS/HR Ceftriaxone Sodium 1 gm/ Sodium Chloride 50 ml @ 100 mls/hr Q24H IV 03/14/25 00:00 03/14/25 00:10 DC Ceftriaxone Sodium (ROCEphine 1G INJ) 1 gm Q24H IVPB 03/14/25 00:30 03/24/25 00:29 03/17/25 01:17 1 GM Chlordiazepoxide HCl (LIBrium 25 MG CAP) 25 mg Q2H PRN PO ALCOHOL WITHDRAWAL PROTOCOL 03/15/25 18:00 03/22/25 17:59 03/15/25 21:47 25 MG Chlordiazepoxide HCl (LIBrium 25 MG CAP) 50 mg Q1H PRN PO ALCOHOL WITHDRAWAL PROTOCOL 03/15/25 18:00 03/22/25 17:59 Digoxin (LANOxin 125mcg) 125 mcg AM PO 03/15/25 09:00 04/14/25 08:59 03/16/25 09:38 125 MCG Diltiazem HCl (CARDIzem 120MG CD) 120 mg HS PO 03/14/25 21:00 04/13/25 20:59 03/16/25 20:53 120 MG Diltiazem HCl (CARDIzem 120MG CD) 240 mg DAILY PO 03/15/25 09:00 04/14/25 08:59 03/16/25 09:39 240 MG Doxycycline Hyclate (Doxycycline Hyclate) 100 mg BID PO 03/16/25 09:00 03/26/25 08:59 03/16/25 20:53 100 MG Duloxetine HCl (CymbALTA 30 mg CAP) 60 mg DAILY PO 03/15/25 09:00 04/14/25 08:59 03/16/25 09:38 60 MG Famotidine (Pepcid 20mg Tab) 20 mg DAILY PO 03/14/25 09:00 04/13/25 08:59 03/16/25 09:38 20 MG Ferrous Fumarate (Hemocyte) 324 mg AM PO 03/15/25 09:00 04/14/25 08:59 03/16/25 09:39 324 MG Folic Acid (FOLic ACID 1 MG TABLET) 1 mg DAILY PO 03/15/25 09:00 04/14/25 08:59 03/16/25 09:39 1 MG Home Med (Home Medication) (Fluticasone/ Umeclidin/ Vilan... DAILY IH 03/15/25 09:00 04/14/25 08:59 Hydroxychloroquine Sulfate (PLAQuenil 200MG) 200 mg BID PO 03/14/25 21:00 03/28/25 20:59 03/16/25 20:53 200 MG Ipratropium [place] (AtrovENT UD) 0.5 MG [id number] IH 03/16/25 00:00 04/15/25 00:00 03/17/25 06:07 0.5 MG Methylprednisolone Sodium Succinate (Solu-medROL 40MG) 40 mg BID IVP 03/14/25 09:00 04/13/25 08:59 03/16/25 20:54 40 MG Metronidazole/ Sodium Chloride (flaGYL) 500 mg Q8H IV 03/15/25 18:00 03/25/25 17:59 03/16/25 17:41 500 MG Miscellaneous Medication (Oxycodone HCl ) 1 tab BID PRN PO pain 03/14/25 10:30 03/14/25 11:26 DC Miscellaneous Medication (Oxycodone HCl ) 1 tab BID PRN PO pain 03/14/25 10:30 03/14/25 11:26 DC Nicotine (Nicoderm) 14 mg DAILY TD 03/15/25 22:00 03/14/25 16:06 DC Nicotine (Nicoderm) 21 mg Q24H TD 03/15/25 13:00 04/14/25 12:59 03/16/25 13:14 21 MG Ondansetron HCl (zoFRAN 4MG INJ) 4 mg Q4H PRN IV NAUSEA 12/23/25 18:00 04/14/25 17:59 Ondansetron HCl (zoFRAN 4MG INJ) 4 mg Q6H PRN IV NAUSEA/VOMITING 03/14/25 00:00 03/15/25 18:07 DC Oxycodone HCl (ROXicoDONE) 10 mg BID PRN PO SEVERE PAIN (7-10) 03/15/25 00:30 03/15/25 17:43 DC 03/15/25 09:27 10 MG Oxycodone HCl (ROXicoDONE) 10 mg TIDP PRN PO SEVERE PAIN (7-10) 03/15/25 18:00 03/22/25 17:59 03/16/25 20:54 10 MG Oxycodone HCl (ROXicoDONE) 20 mg BID PRN PO SEVERE PAIN (7-10) 03/15/25 00:30 03/15/25 00:32 DC Pharmacy Profile Note (Pharmacy Communication) 1 each PROTOCOL PRN MISC ETOH Withdrawal Score changes 03/15/25 18:00 03/15/25 22:46 DC Potassium Chloride (K-Dur/Klor-Con 20meq) 20 meq AD PRN PO POTASSIUM PROTOCOL 03/16/25 08:00 04/15/25 07:59 Potassium Chloride (KCl 10% Elixir 20meq/15ml) 20 meq AD PRN PO POTASSIUM PROTOCOL 03/16/25 08:00 04/15/25 07:59 03/16/25 13:14 20 MEQ Pregabalin ([id number]) 150 mg TID PO 03/14/25 14:00 04/13/25 13:59 03/16/25 20:53 150 MG Quetiapine Fumarate (SEROquel 25 mg TAB) 12.5 mg TIDP PO 03/15/25 18:00 04/14/25 17:59 Sodium Chloride 1,000 ml @ 100 mls/hr Q10H IV 03/14/25 00:00 03/14/25 18:54 DC Thiamine HCl (Vitamin B-1) 250 mg TID IV 03/15/25 21:00 03/16/25 14:01 DC 03/16/25 13:15 250 MG Thiamine HCl 100 mg/Folic Acid 1 mg/Multivitamins/ Minerals 10 ml/ Sodium Chloride 1,011.2 ml @ 100 mls/ hr Q24H IV 03/15/25 18:30 03/18/25 04:37 03/16/25 17:41 100 MLS/HR Valacyclovir HCl (ValtREX) 500 mg BID PO 03/14/25 21:00 04/13/25 20:59 03/16/25 20:53 500 MG DIAGNOSTICS / RADIOLOGY: [ ] [place] [address] [place] [id number] IMAGING REPORT Signed PATIENT: CHETNA SORIANO MR#: [id number] : 1955 SEX: M AGE: 69 LOCATION: [facility] ORDER 42 STATUS: ADM IN REPORT#: [id number] SERVICE 0000 REASON: chf ORDERING PHYSICIAN: JEFF GARCIA MD PROCEDURE: ECHO CMP - ECHO 2-D COMPLETE APPROVED REPORT EXAM: Two-dimensional and M-mode echocardiogram with Doppler and color Doppler. INDICATION ICD: congestive heart failure 2D Dimensions RVDd 3.8 cm LVEF(%) 47.5 (>50%) LVED Vol(simp.) 86.9 mL IVSd 1.7 (0.7-1.1cm) FS(%) 23 % LVES Vol(simp.) 33.6 mL LVDd 2.8 (3.8-5.6cm) LA (2D) 3.0 (1.6-4.0cm) LVEF(%, simp.) 61 % PWd 1.9 (0.7-1.1cm) Ao Root(2D) 3.1 (2.0-3.7cm) LA ESV INDEX (BP) 59.51 mL/m2 LVDs 2.2 (2.5-4.0cm) LVOT diam 2.3 (1.8-2.4cm) IVC diam 1.6 cm Deformation Strain Apical 4 -12.0 % Apical 2 -14.6 % Apical 3 -12.9 % Global Strain -13.2 % M-Mode Dimensions EPSS 1.3 cm LA (MM) 3.8 (1.6-4.0cm) Ao Root(MM) 3.3 (2.0-3.7cm) Aortic Valve AoV Vmax 3.4 m/s Ao Peak GR 45.9 mmHg LVOT Vmax 1.0 m/s AoV VTI 0.7 m Ao Mean GR 23.6 mmHg LVOT VTI 0.19 m VIPUL (VMAX) 1.22 cm2 Al P1/2T 330 ms VIPUL (VTI) 1.1 cm2 Mitral Valve MV E Vmax 134.8 cm/s DECEL Time 197 ms MV A Vmax 147.3 cm/s P 1/2 T 77 ms E/A ratio 0.9 MVA (PHT) 2.9 cm2 TDI E/E' Medial 23.0 E/E' Lateral 20.1 Medial E' Peak V 5.85 cm/s Lateral E' Peak V 6.72 cm/s Tricuspid Valve TR Vmax 2.4 m/s RAP (EST) 3 mmHg RVSP 25.1 mmHg TR Peak GR 22.1 mmHg Left Ventricle The left ventricle is normal size. No regional wall motion abnormalities noted. Severe concentric left ventricular hypertrophy. Left ventricular systolic function is normal, estimated LVEF is 55-60%. Stage I diastolic dysfunction. Right Ventricle The right ventricle is normal size. The right ventricular systolic function is normal. Atria The left atrium is severely dilated, 60 ml/m2. The The right atrium size is normal. Aortic Valve Aortic valve is trileaflet. The leaflets are thickened and calcified. Moderate aortic regurgitation, pressure half-time 295 ms Moderate aortic stenosis: Peak velocity 3.3 m/s, mean gradient 26 mmHg Mitral Valve Mild mitral annular calcification is noted. The leaflets are moderately thickened and calcified. Trace mitral regurgitation. There is no mitral valve stenosis. Tricuspid Valve The tricuspid valve is normal in structure. Trace tricuspid regurgitation. RVSP is 22 mmHg. Pulmonic Valve Pulmonic valve is not well visualized. Great Vessels The aortic root is normal in size. The IVC is normal in size and collapses >50% with inspiration. Pericardium There is no pericardial effusion. Conclusion The left atrium is severely dilated, 60 ml/m2. The Severe concentric left ventricular hypertrophy. No regional wall motion abnormalities noted. Left ventricular systolic function is normal, estimated LVEF is 55-60%. Stage I diastolic dysfunction. Moderate aortic stenosis: Peak velocity 3.3 m/s, mean gradient 26 mmHg Moderate aortic regurgitation, pressure half-time 295 ms. Trace mitral regurgitation. Trace tricuspid regurgitation. PASP is 25 mmHg. There is no pericardial effusion. DICTATED BY: CELE GOEL MD DATE: 03/16/25 0717 ELECTRONICALLY SIGNED BY: CELE GOEL MD DATE: 03/16/25 2337 [facility] [address] [place] [id number] IMAGING REPORT Signed PATIENT: CHETNA SORIANO MR#: [id number] : 1955 SEX: M AGE: 69 LOCATION: [facility] ORDER 51 STATUS: ADM IN REPORT#: [id number] SERVICE 48 REASON: CAP ORDERING PHYSICIAN: JEFF GARCIA MD PROCEDURE: CHEST WO - CT CHEST W/O CONTRAST EXAM: CT SCAN OF THE CHEST WITHOUT CONTRAST Clinical statement: Community-acquired pneumonia; coronal CT chest. STUDY PROTOCOL: A multislice CT scan of the chest was performed without intravenous contrast. Axial images were obtained from the thoracic inlet through the upper abdomen with multiplanar reformations. RADIATION DOSE: CTDIvol 6.10 mGy; DLP 254.20 mGycm. CONTRAST: No intravenous contrast administered. COMPARISON: Chest radiograph from 03/13/2025. FINDINGS: Soft tissues: Visualized soft tissues of the chest wall and lower neck are unremarkable without focal mass or fluid collection. Lungs and large airways: Trachea and main bronchi are patent. There is subsegmental atelectasis within the lingula of the left upper lobe. Subsegmental consolidation is present in the left lower lobe, compatible with focal airspace disease. Diffuse emphysematous changes involve both lungs, with centrilobular, subpleural, and paraseptal cystic lucencies of varying size. A few small fibrotic-appearing nodules are present in the right upper lobe. No discrete suspicious noncalcified pulmonary mass is identified. Pleura: Moderate left pleural effusion is present. No right pleural effusion or pleural-based mass is seen. No pneumothorax is identified. Heart and pericardium: Heart size is within normal limits. No pericardial effusion is seen. Moderate coronary and aortic root calcifications are present, compatible with atherosclerotic disease. Aorta: Thoracic aorta is normal in caliber without aneurysm or dissection. Moderate aortic wall calcifications are present, consistent with atherosclerosis. Pulmonary arteries: Main and central pulmonary arteries are normal in caliber on these noncontrast images; evaluation for pulmonary embolism is limited without contrast. Lymph nodes: No enlarged mediastinal, hilar, or axillary lymph nodes are identified. Mediastinum and quin: Mediastinal structures and quin are unremarkable without focal mass or abnormal soft tissue density. Chest wall and lower neck: No chest wall mass, hematoma, or subcutaneous emphysema is identified. Bones/joints: No acute rib fracture or other acute osseous injury is identified. There is diffuse osteopenia. Degenerative changes are present in the thoracic spine with a chronic moderate compression deformity of T8. No aggressive osseous lesion is seen. Upper abdomen: Visualized upper abdominal organs are otherwise unremarkable. A 3 mm calculus is present in the right kidney, consistent with a small nonobstructing renal calculus. IMPRESSION: * Subsegmental consolidation in the left lower lobe with moderate left pleural effusion in a patient with clinical history of community-acquired pneumonia, compatible with pneumonia and likely parapneumonic effusion. Recommend appropriate antimicrobial therapy and follow-up chest radiograph in approximately 68 weeks to document resolution, particularly if the patient has risk factors for malignancy. * Subsegmental atelectasis in the lingula of the left upper lobe. * Diffuse emphysematous changes in both lungs with a few small fibrotic nodules in the right upper lobe, compatible with chronic smoking-related/emphysematous lung disease and postinflammatory scarring. * Chronic thoracic spine changes including osteopenia, degenerative changes, and chronic moderate compression deformity of T8, without acute osseous injury. * Small nonobstructing 3 mm right renal calculus. * Compared with the chest radiograph from 03/13/2025, CT confirms left basilar airspace disease and left pleural effusion corresponding to the prior reported infiltrate and effusion, with similar emphysematous changes and no additional acute cardiopulmonary abnormality identified. /Baker DICTATED BY: PATEL FRY MD DATE: 03/16/252237 ELECTRONICALLY SIGNED BY: PATEL FRY MD DATE: 03/16/252237 ASSESSMENT: Sepsis due to community-acquired pneumonia POA COPD exacerbation POA Acute respirsatory failure POA Alcohol use disorder W/withdrawal Acute anemia POA Hyponatremia POA Hypochloremia POA Hypocalcemia POA Elevated BNP POA Peripheral arterial disease POA Hypertension POA Hyperlipidemia POA Nicotine dependence POA PLAN: Sepsis due to community-acquired pneumonia POA COPD exacerbation POA Acute respirsatory failure POA On presentation heart rate 113, temperature 99.9, white count 11.7, lactic acid 1.9 Chest x-ray showed moderate left basilar infiltrates likely pneumonia. Continue IV Flagyl Q8, doxycycline 100 mg b.i.d. PO Continue IV Solu-Medrol 40 mg b.i.d., DuoNebs q.4 Respiratory culture showed growth of Klebsiella, Niki albicans IV Rocephin has been stopped, IV Zosyn has been started White count today 9 Pulmonology on board Peripheral arterial disease POA Arterial ultrasound of right lower extremity showed basically from seen, femoral, superficial femoral and monophasic in the remainder of the arteries. No flow in dorsalis pedis artery. Ultrasound of right lower extremity showed no DVT CT abdominal aorta with BLE runoff revealed atheromatous wall calcifications of aorta, its branches, iliac arteries and both lower limb arteries with multivessel short segment narrowing of common femoral and superficial femoral arteries narrow caliber flow in bilateral popliteal and tibioperoneal arteries. No demonstrable flow in bilateral distal anterior and posterior tibial arteries -moderate peripheral vascular disease. Cardiology recommended outpatient follow up as patient does not want further evaluation and treatment at hospital at this point of time. On 03/16/2025 patient said that he wants to get procedure done for his PAD, we will reconsult for further evaluation and management Alcohol use disorder W/withdrawal Patient is approximately 72 hours from his last drink, eating very poorly prior to admission and drinking 2 pint per day Patient is started on CIWA protocol High-dose thiamine 250 mg IV t.i.d. for possible Wernicke's Seroquel 12.5 mg t.i.d. p.r.n. for acute agitation, aggression or psychosis Hyponatremia POA On presentation sodium 128 Today sodium 131 All home medications have been reconciled and resumed Nicotine patch14 mg for nicotine dependence GI prophylaxis with Pepcid 20 mg DVT prophylaxis with Eliquis5 mg ATTESTATION BY PHYSICIAN I have seen and examined the patient. I reviewed the documentation, medical decision making, and treatment plan as noted by the resident physician above. I agree with the findings and plan of care. ROBERT SCHMIDT MD, ADIL SHAH QUADRI MD Mar 17, 2025 08:50
[2025-03-17] MEDS ORDERED: ZOSYN 3.375GM +NS 50ML IV SCH (11:30)
--- NOTE | 2025-03-17 12:00 | NUR ---
PERIPHERAL IV PATIENTS IV LEAKING. PATIENT WITH POOR IV ACCESS. IV INSERTION ATTEMPTED BY TWO NURSE. CALLED MD SPOKE WITH DR. BROOKE PER MD CARRENO TO PLACE ORDERS FOR MIDLINE. ORDERS PLACED. [employer]W TRUCK DRIVER AWARE CONSENT SIGNED.
[2025-03-17 12:59] LABS: INR 1.19 (0.85-1.15)
--- NOTE | 2025-03-17 13:04 | PN ---
[facility] PROGRESS NOTE Date Patient Seen: Mar 17, 2025 Time of Visit: 13:04 Supervising Physician: Dr. Almita Lainez Primary Care Physician: [ ] Outpatient Specialists: [ ] Inpatient Consults: BIS PROBLEM LIST: Community-acquired pneumonia present on admission Acute COPD exacerbation secondary to community-acquired pneumonia Alcoholic liver cirrhosis Alcohol use disorder Alcohol withdrawal syndrome Tobacco use disorder Severe protein calorie malnutrition secondary to chronic alcohol use disorder Hypertension Hyperlipidemia Underlying systemic lupus erythematosus Critical illness myopathy Sarcopenia INTERVAL HISTORY: The patient was examined seen while resting in bed head of the bed elevated, awake alert and oriented, appears in no acute distress. Accompanied by patient's bedside nurse.Reviewed with patient vital signs, stable. Afebrile. Laboratory results: WBC 9.2 hemoglobin 12.6, hematocrit 37.9%, sodium 131, potassium 3.8, BUN 15, creatinine 0.5, albumin 2.6, platelets 151, and discussed diagnostic tests results with patient's spouse at bedside. Reviewed and discussed medications and CIWA protocol to ensure patient has a transition from alcohol misuse. After discussion there are no further questions or concerns. We will continue with IV hydration, CIWA protocol, banana bag, antibiotics Zosyn IV q.12 hours and doxycycline IV Q 12 hours. Further orders per course of stay. A.m. labs ordered REVIEW OF SYSTEMS: Able to complete review of systems Infused PHYSICAL EXAM: GENERAL: Awake, alert, oriented, communicates in simple sentences, with moments of confusion, going through withdrawals of alcohol, and appears in no acute distress HEENT: EOMI, Sclera non icteric, moist mucosa NECK: Supple, no JVD, trachea midline LUNGS: Clear breath sounds bilaterally. No wheezes. Decreased breath sound left side. HEART: Regular rate and rhythm. Normal S1 and S2, without murmurs ABD: Abdomen soft, nontender. Bowel sounds present EXT: No clubbing cyanosis or edema NEURO: Alert and oriented to person, follows commands Vital Signs (last 8hr) Date Time Temp Pulse Resp B/P (MAP) Pulse Ox O2 Delivery O2 Flow Rate FiO2 03/17/25 12:14 98.1 90 14 121/76 87 Room Air 03/17/25 10:58 78 18 N/A Room Air 21 03/17/25 10:56 78 18 03/17/25 10:50 90 03/17/25 09:50 96 03/17/25 08:11 97.3 96 13 124/74 99 Room Air 03/17/25 06:10 79 18 N/A Room Air 21 03/17/25 06:08 79 18 LABS: Hematology Labs: Test 03/17/25 03:57 Range/Units White Blood Count 9.2 4.8-10.8 K/uL Red Blood Count 3.93 L 4.50-6.20 MIL/uL Hemoglobin 12.6 L 14.0-18.0 g/dL Hematocrit 37.9 L 42-54 % Mean Corpuscular Volume 96.4 79-99 fL Mean Corpuscular Hemoglobin 32.1 27.0-33.0 pg Mean Corpuscular Hemoglobin Concent 33.2 32.0-36.0 g/dL Red Cell Distribution Width 13.3 11.0-15.5 % Platelet Count 151 130-400 K/uL Mean Platelet Volume 10.8 H 7.5-10.5 fL Nucleated Red Blood Cells 0.0 0.0-0.19 % Chemistry Labs: Test 03/17/25 03:57 03/16/25 04:15 03/15/25 16:34 Range/Units Sodium Level 131 L 136-145 mmol/L Potassium Level 3.8 3.5-5.1 mmol/L Chloride Level 97 L 101-111 mmol/L Carbon Dioxide Level 29 21-32 mmol/L Blood Urea Nitrogen 15 7-18 mg/dL Creatinine 0.5 0.5-1.3 mg/dL Glomerular Filtration Rate Calc 110 >90 mL/min Random Glucose 104 70-105 mg/dL Total Calcium 8.3 L 8.5-10.1 mg/dL Total Bilirubin 0.4 0.2-1.0 mg/dL Aspartate Amino Transf (AST/SGOT) 29 10-37 U/L Alanine Aminotransferase (ALT/SGPT) 31 12-78 U/L Alkaline Phosphatase 83 50-136 U/L Total Protein 6.2 6.0-8.3 g/dL Albumin 2.6 L 3.5-5.0 g/dL Magnesium Level 2.10 1.80-2.40 mg/dL Ammonia 23 11-32 umol/L Whole Blood Glucose 191 H 70-110 MG/DL Coagulation Labs: Test 03/17/25 12:38 Range/Units Prothrombin Time 12.4 H 9.6-11.6 SEC Prothromb Time International Ratio 1.19 H 0.85-1.15 DIAGNOSTICS / RADIOLOGY RESULTS: [ ] PLAN Add Flagyl 500 mg IV every 8 hours to current antibiotic regimen Follow [facility] protocol CT scan of the chest without contrast IV hydration with D5W Aspiration precautions NEURO: Minimize central acting medications as possible. Maintain fall precautions, adequate lighting during the day PULMONARY: Supplemental 02 as needed. Maintain aspiration precautions at all times CARDIOVASCULAR: Follow hemodynamics. Vital signs per facility protocol GI & NUTRITION: Continue with nutritional support. Continue stool softeners and laxatives as needed. KIDNEYS & ELECTROLYTES: Strict monitoring of intake, output and overall fluid balance. Avoid nephrotoxic medications to the extent possible. Medications to be dosed according to renal function. Monitor electrolytes and replace as needed ENDOCRINE: Maintain blood glucose between 100-180 at all times. Hypoglycemia protocol in place INFECTIOUS DISEASE: Trend temperature, WBC and procalcitonin level Follow cultures, deescalate antibiotics as soon as possible. Panculture if new onset fever ONCOLOGY/HEMATOLOGY/COAGULATION: Monitor for s/s of bleeding Monitor hemoglobin, coagulation studies as needed SKIN: Pressure ulcer prevention per facility protocol Specialty mattress ORTHO/REHAB: Continue PT/OT Prophylaxis: Continue GI and DVT prophylaxis Code Status: Full Resuscitation Disposition: ARIADNA BRINK AGACNP Mar 17, 2025 13:04
[2025-03-17] MEDS: ZOSYN 3.375GM +NS 50ML IV ONE (15:33)
[2025-03-18] VITALS (9 sets, daily range): BP systolic 159–171; BP diastolic 65–91; PULSE 80–101; RESP 17–20; TEMP 97.9–98.9; O2SAT 98
[2025-03-18 04:28] LABS: NUCLEATED RED BLOOD CELLS 0.0 % (0.0-0.19); PLATELET COUNT (AUTO) 163.0 K/uL (130-400); RED BLOOD CELL COUNT(AUTO) 4.13 MIL/uL (4.50-6.20); RED CELL DISTRIBUTION WIDTH 13.1 % (11.0-15.5); WHITE BLOOD COUNT (AUTO) 6.9 K/uL (4.8-10.8)
[2025-03-18 04:49] LABS: CREATININE 0.7 mg/dL (0.5-1.3); GLOMERULAR FILTR. RATE CALC 100.0 mL/min (>90); GLUCOSE,RANDOM 138.0 mg/dL (70-105); SODIUM SERUM 128.0 mmol/L (136-145); UREA NITROGEN, BLOOD 19.0 mg/dL (7-18)
[2025-03-18] MEDS: ZOSYN 3.375GM +NS 50ML IV SCH (08:36)
--- NOTE | 2025-03-18 10:54 | PN ---
[facility] PROGRESS NOTE Date of Service: Mar 18, 2025 Time of Service: 10:54 SUBJECTIVE: HISTORY OF PRESENT ILLNESS: This is a 69-year-old male,from [facility] here for a vacation, a poor historian with past medical history of COPD,a heavy smoker,Hyperlipidemia,hypertension,peripheral arterial disease,lupus and liver cirrhosis who present to the ED for complaints of cough,nasal congestion,fever and generalized body weakness started 2 days ago and got worse today. Patient reports he has clots on both legs and patient on Eliquis he said.Patient has left lower extremity swelling and redness discoloration.patient has discoloration to right lower extremity as well. Seen and examined patient in the ER awake,alert and coherent.Patient denies chest pain,palpitation shortness of breath. Latest vital signs temperature 98.4, heart rate 96, blood pressure 129/51 saturation 91% on room air. Labs: WBC 11 with negative left shift of neutrophils 87, hemoglobin 13, hematocrit 39 and platelet count 142. Sodium 128, chloride 95, lactic acid 1.9, total calcium 8.4 BNP 180. Influenza type a and B negative SARS COVID negative group a strep negative. Chest x-ray result revealed moderate left basilar infiltrate. Pneumonia likely. Left pleural effusion. Emphysematous lung changes. Right lower extremity arterial Doppler study result revealed atherosclerotic changes in the right lower limb arteries right lower extremity arteries demonstrate biphasic waveforms in common femoral superficial femoral and monophasic in the remainder of the arteries increased velocity in the right common femoral artery. No flow in the dorsalis pedis artery recommend CT or MR angiogram. Venous Doppler to right lower extremity result revealed no deep venous thrombosis evident on the right lower extremity. While in the ER patient received 1 L NS bolus, Tylenol 1000 mg p.o., Solu-Medrol 80 mg IV, DuoNeb treatment, ceftriaxone 1 g IV and azithromycin IV and nicotine patch 14 mg. patient admitted for further medical management. 03/14/2025: Patient was seen and evaluated bedside this morning, family at bedside. He is awake, alert, oriented x3, saturating 91% with2 L nasal cannula. Patient says that he is feeling good, wants to go home. Morning labs revealed white count 5.2, H&H 14.4, 42.1, CRP 79, BUN 10, creatinine 0.7. Chest X-ray revealed left basilar infiltrates, right lower extremity venous Doppler showed no DVT, right lower extremity arterial ultrasound no flow in the dorsalis pedis artery, waveforms in common femoral, superficial femoral, monophasic and remainder of RLE arteries. We will get CT abdominal aorta with BLE runoff, consult cardiology for further evaluation. Patient is currently on IV Solu- Medrol 40 mg b.i.d., IV Rocephin1 g Q 24, IV azithromycin, DuoNebs q.4 and nicotine patch. 03/15/2025: Patient was seen and evaluated bedside this morning, family at bedside. He is awake, alert, confused , saturating 94% with 2 L nasal. Patient says that he wants to back home. Morning labs are unremarkable. CT abdominal aorta with runoff showed atheromatous wall calcifications of aorta, its branches, iliac arteries and both lower limb arteries with multivessel short segment narrowing of common femoral and superficial femoral arteries narrow caliber flow in bilateral popliteal and tibioperoneal arteries. No demonstrable flow in bilateral distal anterior and posterior tibial arteries -moderate peripheral vascular disease. Cardiology recommended outpatient follow up as patient does not want further evaluation and treatment for PAD at this time. On telemetry patient had Had a run of V-tach 230, patient was seen walking around his room, symptomatic. Patient has been started on CIWA protocol, high-dose thiamine, Seroquel 12.5 mg prn t.i.d. for severe agitation as per Psychiatry recommendations. 03/16/2025: Patient was seen and evaluated bedside this morning, no family at bedside. He is awake, alert, oriented x3, saturating 97% with2 L nasal cannula. Patient says that he is doing well, he says that he changed his mind and wants to get procedure done for his severe PAD. Morning labs revealed sodium 134, potassium 3.6, white count 9, H and H 12.4, 36.4, magnesium 2.1, ammonia 23. Pending 2D echocardiogram, chest CT report. Patient continues on CIWA protocol with high-dose thiamine, IV Flagyl, IV doxycycline, IV Rocephin, IV Solu-Medrol. We will reconsult Dr. Cristobal high school history teacher for further evaluation and management of severe PAD. Cardiology, pulmonology on board we will continue to follow their recommendations. 03/17/2025: Patient was seen and evaluated this morning, no family at bedside. He is awake, alert, oriented x3, saturating 94% at room air. Patient says that he is doing good, denies any new or worsening symptoms. Labs revealed white count 9.2, H&H 12.6, 37.9, sodium 131, potassium 3.8. 2D echo showed LVEF 55- 60%, stage I diastolic dysfunction, severe concentric left ventricular hy pertrophy. CT chest showed segmental consolidation in left lower lobe with moderate left pleural effusion compatible with pneumonia and left parapneumonic effusion, chronic smoking related/emphysematous lung disease and post inflammatory scarring. Respiratory culture showed growth of Klebsiella , Niki albicans. IV Rocephin has been stopped, patient was started on Zosyn, continue CIWA protocol with high-dose thiamine, IV Flagyl, IV doxycycline, IV Solu-Medrol. Cardiology, pulmonology on board we will continue to follow their recommendations. REVIEW OF SYSTEMS CONSTITUTIONAL: + fever Denies chills, or night sweats. No unintentional weight loss reported. NEUROLOGICAL: Denies headache, amaurosis fugax, motor weakness, sensory deficit, vertigo/spinning sensation, gait abnormalities, or tremors. ENT: No hearing loss, otalgia, otorrhea, rhinitis, rhinorrhea, hoarseness, or sore throat. CARDIOVASCULAR: Denies any exertional angina, dyspnea on exertion, orthopnea, paroxysmal nocturnal dyspnea, palpitations, life-threatening arrhythmias, claudication. PULMONARY: + productive cough Denies any shortness of breathhemoptysis, pleuritic chest pain. SLEEP: Denies morning headaches, daytime somnolence or napping. Denies dif ficulty falling asleep, staying asleep, waking from sleep. Denies knowledge of snoring. GASTROINTESTINAL: Denies any type of dysphagia to either liquids or solids. Denies nausea, vomiting, pyrosis, early satiety, abdominal pain, diarrhea, constipation, or changes in stool consistency or caliber. Denies coffee-ground emesis, hematemesis, hematochezia, or melanotic stools. GENITOURINARY: Denies frequency, urgency, nocturia, hematuria or incontinence (Storage/Irritative symptoms.) Low urinary stream, straining to void, urinary intermittency or hesitancy, splitting of the voiding stream, terminal dribbling. ENDOCRINOLOGIC: Denies polyuria, polydipsia, polyphagia or heat/cold i ntolerances. HEMATOLOGIC: Denies thrombophilia/previous clots, or coagulopathy/bleeding disorders. ONCOLOGIC: Denies personal history of malignancy. DERMATOLOGIC: Denies rashes or pruritus. PSYCHIATRIC: Denies any suicidal or homicidal ideation. Denies hallucinations. PHYSICAL EXAM GENERAL APPEARANCE: The patient is awake, alert, and oriented, in no acute cardiopulmonary distress. NEUROLOGICAL: Cranial nerves II-XII grossly intact. Motor is 5/5 in bilateral upper and lower extremities proximal to distal. No sensory deficits. HEENT: Face is symmetric. Pupils are equal and reactive. Extraocular movements are intact. NECK: Supple. No JVD. No thyromegaly. No submental, submandibular, pre- /postauricular, occipital or supraclavicular lymphadenopathy. CHEST: Normal chest expansion. No Telemetry. LUNGS: Crackles on left lower lobe CARDIOVASCULAR: Regular. S1 and S2 normal. No appreciable rubs, murmurs or gallops. ABDOMEN: Soft, nontender, and nondistended. There is no rebound, voluntary guarding, or rigidity. : Deferred. No Hawley. EXTREMITIES: Hyperpigmentation, dry ulcers on his right 2nd and 5th toes, lack of hair, brittle toenails, cool to touch SKIN: No skin breakdown. Vital Signs (last 8hr) Date Time Temp Pulse Resp B/P (MAP) Pulse Ox O2 Delivery O2 Flow Rate FiO2 03/18/25 09:37 92 03/18/25 08:37 101 03/18/25 08:19 99.0 101 17 165/91 95 Room Air 03/18/25 06:21 85 18 03/18/25 06:21 85 18 N/A Room Air 21 03/18/25 04:18 98.1 82 18 160/75 97 Room Air LABS: Laboratory: Test 03/18/25 04:15 03/17/25 12:38 03/17/25 03:57 Range/Units White Blood Count 6.9 4.8-10.8 K/uL Red Blood Count 4.13 L 4.50-6.20 MIL/uL Hemoglobin 13.1 L 14.0-18.0 g/dL Hematocrit 38.9 L 42-54 % Mean Corpuscular Volume 94.2 79-99 fL Mean Corpuscular Hemoglobin 31.7 27.0-33.0 pg Mean Corpuscular Hemoglobin Concent 33.7 32.0-36.0 g/dL Red Cell Distribution Width 13.1 11.0-15.5 % Platelet Count 163 130-400 K/uL Mean Platelet Volume 11.3 H 7.5-10.5 fL Nucleated Red Blood Cells 0.0 0.0-0.19 % Sodium Level 128 L 136-145 mmol/L Potassium Level 4.2 3.5-5.1 mmol/L Chloride Level 95 L 101-111 mmol/L Carbon Dioxide Level 32 21-32 mmol/L Blood Urea Nitrogen 19 H 7-18 mg/dL Creatinine 0.7 0.5-1.3 mg/dL Glomerular Filtration Rate Calc 100 >90 mL/min Random Glucose 138 H 70-105 mg/dL Lactic Acid Level 1.3 0.8-2.5 mmol/L Total Calcium 8.2 L 8.5-10.1 mg/dL C-Reactive Protein, Quantitative 6.10 H 0.5-3.0 mg/L B-Type Natriuretic Peptide 115 H 0-100 pg/mL Procalcitonin < 0.05 L 0.05-0.5 ng/mL Free Thyroxine (T4) Direct 1.02 0.76-1.46 ng/dL Free Triiodothyronine (T3) pg/mL 0.57 L 2.18-3.98 pg/mL Digoxin Level 0.49 L 0.50-2.00 ng/mL Prothrombin Time 12.4 H 9.6-11.6 SEC Prothromb Time International Ratio 1.19 H 0.85-1.15 Total Bilirubin 0.4 0.2-1.0 mg/dL Aspartate Amino Transf (AST/SGOT) 29 10-37 U/L Alanine Aminotransferase (ALT/SGPT) 31 12-78 U/L Alkaline Phosphatase 83 50-136 U/L Total Protein 6.2 6.0-8.3 g/dL Albumin 2.6 L 3.5-5.0 g/dL Current Medications Medications (Trade) Dose Ordered Sig/Carmen Route PRN Reason Start Time Stop Time Status Last Admin Dose Admin Acetaminophen (TYLenol 325MG TAB) 650 mg Q4H PRN PO MILD PAIN (1-3) 03/14/25 00:00 04/13/25 00:00 Acetaminophen (TYLenol 325MG TAB) 650 mg Q6H PRN PO TEMPERATURE GREATER THAN 101.5 03/14/25 00:00 04/13/25 00:00 Acetaminophen (TYLenol 500MG TAB) 500 mg Q6H PRN PO TEMP < 101.1 AND/OR HEADACHE 03/15/25 18:00 03/18/25 08:36 DC Albuterol (DUOneb) 1 udvial [id number] IH 03/14/25 02:00 03/15/25 22:41 DC 03/15/25 18:32 1 UDVIAL Apixaban (EliquIS) 5 mg BID PO 03/14/25 21:00 04/13/25 20:59 03/18/25 08:37 5 MG Atorvastatin Calcium (LIPItor 40MG) 40 mg DAILY PO 03/15/25 09:00 04/14/25 08:59 03/18/25 08:38 40 MG Azithromycin 250 ml @ 250 mls/hr Q24H IV 03/14/25 00:00 03/15/25 22:41 DC 03/15/25 01:20 250 MLS/HR Ceftriaxone Sodium 1 gm/ Sodium Chloride 50 ml @ 100 mls/hr Q24H IV 03/14/25 00:00 03/14/25 00:10 DC Ceftriaxone Sodium (ROCEphine 1G INJ) 1 gm Q24H IVPB 03/14/25 00:30 03/17/25 11:15 DC 03/17/25 01:17 1 GM Chlordiazepoxide HCl (LIBrium 25 MG CAP) 25 mg Q2H PRN PO ALCOHOL WITHDRAWAL PROTOCOL 03/15/25 18:00 03/22/25 17:59 03/15/25 21:47 25 MG Chlordiazepoxide HCl (LIBrium 25 MG CAP) 50 mg Q1H PRN PO ALCOHOL WITHDRAWAL PROTOCOL 03/15/25 18:00 03/22/25 17:59 Digoxin (LANOxin 125mcg) 125 mcg AM PO 03/15/25 09:00 04/14/25 08:59 03/18/25 08:37 125 MCG Diltiazem HCl (CARDIzem 120MG CD) 120 mg HS PO 03/14/25 21:00 04/13/25 20:59 03/17/25 20:44 120 MG Diltiazem HCl (CARDIzem 120MG CD) 240 mg DAILY PO 03/15/25 09:00 04/14/25 08:59 03/18/25 08:38 240 MG Doxycycline Hyclate (Doxycycline Hyclate) 100 mg BID PO 03/16/25 09:00 03/26/25 08:59 03/18/25 08:38 100 MG Duloxetine HCl (CymbALTA 30 mg CAP) 60 mg DAILY PO 03/15/25 09:00 04/14/25 08:59 03/18/25 08:36 60 MG Famotidine (Pepcid 20mg Tab) 20 mg DAILY PO 03/14/25 09:00 04/13/25 08:59 03/18/25 08:37 20 MG Ferrous Fumarate (Hemocyte) 324 mg AM PO 03/15/25 09:00 04/14/25 08:59 03/18/25 08:39 324 MG Folic Acid (FOLic ACID 1 MG TABLET) 1 mg DAILY PO 03/15/25 09:00 04/14/25 08:59 03/18/25 08:37 1 MG Home Med (Home Medication) (Fluticasone/ Umeclidin/ Vilan... DAILY IH 03/15/25 09:00 04/14/25 08:59 Hydroxychloroquine Sulfate (PLAQuenil 200MG) 200 mg BID PO 03/14/25 21:00 03/28/25 20:59 03/18/25 08:37 200 MG Ipratropium Lorraine (AtrovENT UD) 0.5 MG H0LFILE IH 03/16/25 00:00 04/15/25 00:00 03/18/25 06:19 0.5 MG Methylprednisolone Sodium Succinate (Solu-medROL 40MG) 40 mg BID IVP 03/14/25 09:00 04/13/25 08:59 03/18/25 08:39 40 MG Metronidazole/ Sodium Chloride (flaGYL) 500 mg Q8H IV 03/15/25 18:00 03/18/25 08:34 DC 03/18/25 01:14 500 MG Miscellaneous Medication (Oxycodone HCl ) 1 tab BID PRN PO pain 03/14/25 10:30 03/14/25 11:26 DC Miscellaneous Medication (Oxycodone HCl ) 1 tab BID PRN PO pain 03/14/25 10:30 03/14/25 11:26 DC Nicotine (Nicoderm) 14 mg DAILY TD 03/15/25 22:00 03/14/25 16:06 DC Nicotine (Nicoderm) 21 mg Q24H TD 03/15/25 13:00 04/14/25 12:59 03/17/25 13:13 21 MG Ondansetron HCl (zoFRAN 4MG INJ) 4 mg Q4H PRN IV NAUSEA 03/15/25 18:00 04/14/25 17:59 Ondansetron HCl (zoFRAN 4MG INJ) 4 mg Q6H PRN IV NAUSEA/VOMITING 03/14/25 00:00 03/15/25 18:07 DC Oxycodone HCl (ROXicoDONE) 10 mg BID PRN PO SEVERE PAIN (7-10) 03/15/25 00:30 03/15/25 17:43 DC 03/15/25 09:27 10 MG Oxycodone HCl (ROXicoDONE) 10 mg TIDP PRN PO SEVERE PAIN (7-10) 03/15/25 18:00 03/22/25 17:59 03/18/25 08:38 10 MG Oxycodone HCl (ROXicoDONE) 20 mg BID PRN PO SEVERE PAIN (7-10) 03/15/25 00:30 03/15/25 00:32 DC Pharmacy Profile Note (Pharmacy Communication) 1 each PROTOCOL PRN MISC ETOH Withdrawal Score changes 03/15/25 18:00 03/15/25 22:46 DC Piperacillin Sod/ Tazobactam Sod (Zosyn 3.375gm+NS 50ml) 3.375 gm ONCE IV 03/17/25 11:30 03/17/25 15:22 DC Piperacillin Sod/ Tazobactam Sod (Zosyn 3.375gm+NS 50ml) 3.375 gm ZOSY12 IV 03/18/25 09:00 03/28/25 08:59 03/18/25 08:36 3.375 GM Potassium Chloride (K-Dur/Klor-Con 20meq) 20 meq AD PRN PO POTASSIUM PROTOCOL 03/16/25 08:00 04/15/25 07:59 Potassium Chloride (KCl 10% Elixir 20meq/15ml) 20 meq AD PRN PO POTASSIUM PROTOCOL 03/16/25 08:00 04/15/25 07:59 03/16/25 13:14 20 MEQ Pregabalin ([id number]) 150 mg TID PO 03/14/25 14:00 04/13/25 13:59 03/18/25 08:39 150 MG Quetiapine Fumarate (SEROquel 25 mg TAB) 12.5 mg TIDP PO 03/15/25 18:00 03/18/25 08:37 DC Sodium Chloride 1,000 ml @ 100 mls/hr Q10H IV 03/14/25 00:00 03/14/25 18:54 DC Thiamine HCl (Vitamin B-1) 250 mg TID IV 03/15/25 21:00 03/16/25 14:01 DC 03/16/25 13:15 250 MG Thiamine HCl 100 mg/Folic Acid 1 mg/Multivitamins/ Minerals 10 ml/ Sodium Chloride 1,011.2 ml @ 100 mls/ hr Q24H IV 03/15/25 18:30 03/18/25 04:37 DC 03/17/25 20:45 100 MLS/HR Valacyclovir HCl (ValtREX) 500 mg BID PO 03/14/25 21:00 04/13/25 20:59 03/18/25 08:39 500 MG DIAGNOSTICS / RADIOLOGY: [ ] ASSESSMENT: Sepsis due to community-acquired pneumonia POA COPD exacerbation POA Acute respirsatory failure POA Alcohol use disorder W/withdrawal Acute anemia POA Hyponatremia POA Hypochloremia POA Hypocalcemia POA Elevated BNP POA Peripheral arterial disease POA Hypertension POA Hyperlipidemia POA Nicotine dependence POA PLAN: Sepsis due to community-acquired pneumonia POA COPD exacerbation POA Acute respirsatory failure POA On presentation heart rate 113, temperature 99.9, white count 11.7, lactic acid 1.9 Chest x-ray showed moderate left basilar infiltrates likely pneumonia. Continue IV Flagyl Q8, doxycycline 100 mg b.i.d. PO Continue IV Solu-Medrol 40 mg b.i.d., DuoNebs q.4 Respiratory culture showed growth of Klebsiella, Niki albicans IV Rocephin has been stopped, IV Zosyn has been started White count today 9 Pulmonology on board Peripheral arterial disease POA Arterial ultrasound of right lower extremity showed basically from seen, fem oral, superficial femoral and monophasic in the remainder of the arteries. No flow in dorsalis pedis artery. Ultrasound of right lower extremity showed no DVT CT abdominal aorta with BLE runoff revealed atheromatous wall calcifications of aorta, its branches, iliac arteries and both lower limb arteries with multivessel short segment narrowing of common femoral and superficial femoral arteries narrow caliber flow in bilateral popliteal and tibioperoneal arteries. No demonstrable flow in bilateral distal anterior and posterior tibial arteries -moderate peripheral vascular disease. Cardiology recommended outpatient follow up as patient does not want further evaluation and treatment at hospital at this point of time. On 03/16/2025 patient said that he wants to get procedure done for his PAD, we will reconsult for further evaluation and management Alcohol use disorder W/withdrawal Patient is approximately 72 hours from his last drink, eating very poorly prior to admission and drinking 2 pint per day Patient is started on CIWA protocol High-dose thiamine 250 mg IV t.i.d. for possible Wernicke's Seroquel 12.5 mg t.i.d. p.r.n. for acute agitation, aggression or psychosis Hyponatremia POA On presentation sodium 128 Today sodium 131 All home medications have been reconciled and resumed Nicotine patch14 mg for nicotine dependence GI prophylaxis with Pepcid 20 mg DVT prophylaxis with Eliquis5 mg ANTOINE SUAZO MD Mar 18, 2025 10:54
--- NOTE | 2025-03-18 11:30 | PN ---
[facility] PROGRESS NOTE Date Patient Seen: Mar 18, 2025 Time of Visit: 11:25 Supervising Physician: MJ CHAVARRIA MD Primary Care Physician: [ ] Outpatient Specialists: [ ] Inpatient Consults: BIS PROBLEM LIST: Community-acquired pneumonia present on admission Acute COPD exacerbation secondary to community-acquired pneumonia Alcoholic liver cirrhosis Alcohol use disorder Alcohol withdrawal syndrome Acute hospital delirium Tobacco use disorder Severe protein calorie malnutrition secondary to chronic alcohol use disorder Hypertension Hyperlipidemia Underlying systemic lupus erythematosus Critical illness myopathy Sarcopenia INTERVAL HISTORY: Patient is seen and evaluated. Clinical chart reviewed, events of the last 24 hours noted As per nurse, the patient is confused, agitated and with encephalopathy. He is on room air, no acute distress, still having cough with phlegm. Had breakfast this morning, no aspiration. Good appetite Denies fevers, denies chills, no nausea or vomiting Voiding, no seizures. REVIEW OF SYSTEMS: Awake and alert, on room air and following simple commands. Oriented to self and place. PHYSICAL EXAM: GENERAL: Awake, alert, oriented, communicates in simple sentences, with moments of confusion, going through withdrawals of alcohol, and appears in no acute distress HEENT: EOMI, Sclera non icteric, moist mucosa NECK: Supple, no JVD, trachea midline LUNGS: Clear breath sounds bilaterally. No wheezes. Decreased breath sound left side. HEART: Regular rate and rhythm. Normal S1 and S2, without murmurs ABD: Abdomen soft, nontender. Bowel sounds present EXT: No clubbing cyanosis or edema NEURO: Alert and oriented to person, follows commands Vital Signs (last 8hr) Date Time Temp Pulse Resp B/P (MAP) Pulse Ox O2 Delivery O2 Flow Rate FiO2 03/18/25 10:59 80 18 03/18/25 09:37 92 03/18/25 08:37 101 03/18/25 08:19 99.0 101 17 165/91 95 Room Air 03/18/25 06:21 85 18 03/18/25 06:21 85 18 N/A Room Air 21 03/18/25 04:18 98.1 82 18 160/75 97 Room Air LABS: Hematology Labs: Test 03/18/25 04:15 Range/Units White Blood Count 6.9 4.8-10.8 K/uL Red Blood Count 4.13 L 4.50-6.20 MIL/uL Hemoglobin 13.1 L 14.0-18.0 g/dL Hematocrit 38.9 L 42-54 % Mean Corpuscular Volume 94.2 79-99 fL Mean Corpuscular Hemoglobin 31.7 27.0-33.0 pg Mean Corpuscular Hemoglobin Concent 33.7 32.0-36.0 g/dL Red Cell Distribution Width 13.1 11.0-15.5 % Platelet Count 163 130-400 K/uL Mean Platelet Volume 11.3 H 7.5-10.5 fL Nucleated Red Blood Cells 0.0 0.0-0.19 % Chemistry Labs: Test 03/18/25 04:15 03/17/25 03:57 Range/Units Sodium Level 128 L 136-145 mmol/L Potassium Level 4.2 3.5-5.1 mmol/L Chloride Level 95 L 101-111 mmol/L Carbon Dioxide Level 32 21-32 mmol/L Blood Urea Nitrogen 19 H 7-18 mg/dL Creatinine 0.7 0.5-1.3 mg/dL Glomerular Filtration Rate Calc 100 >90 mL/min Random Glucose 138 H 70-105 mg/dL Lactic Acid Level 1.3 0.8-2.5 mmol/L Total Calcium 8.2 L 8.5-10.1 mg/dL C-Reactive Protein, Quantitative 6.10 H 0.5-3.0 mg/L B-Type Natriuretic Peptide 115 H 0-100 pg/mL Procalcitonin < 0.05 L 0.05-0.5 ng/mL Free Thyroxine (T4) Direct 1.02 0.76-1.46 ng/dL Free Triiodothyronine (T3) pg/mL 0.57 L 2.18-3.98 pg/mL Total Bilirubin 0.4 0.2-1.0 mg/dL Aspartate Amino Transf (AST/SGOT) 29 10-37 U/L Alanine Aminotransferase (ALT/SGPT) 31 12-78 U/L Alkaline Phosphatase 83 50-136 U/L Total Protein 6.2 6.0-8.3 g/dL Albumin 2.6 L 3.5-5.0 g/dL Coagulation Labs: Test 03/17/25 12:38 Range/Units Prothrombin Time 12.4 H 9.6-11.6 SEC Prothromb Time International Ratio 1.19 H 0.85-1.15 DIAGNOSTICS / RADIOLOGY RESULTS: [ ] PLAN Hemodynamically stable from pulmonary standpoint. Patient on room air. continue CIWA protocol continue IV antibiotics follow aspiration precautions [facility] will sign off from case and will defer medical management and discharge to primary care team. Thank you, I personally scribed for MJ CHAVARRIA MD ([email or web address]) on 03/18/25 at 11:30. Electronically submitted by Zachery Collazo ([email or web address]). MJ CHAVARRIA MD Mar 18, 2025 11:30
[2025-03-18] MEDS: CYANOCOBALAMIN (VITAMIN B-12) 1,000 MCG TABLET PO SCH (14:45)
--- NOTE | 2025-03-18 17:12 | NUR ---
PATIENT LEAVING AMA PATIENT IS LEAVING AMA. PATIENT HAS BEEN EDUCATED ON IMPORTANCE OF STAYING IN HOSPITAL FOR TREATMENT. PATIENT CURRENTLY HAS SODIUM LEVEL OF 128. PATIENT REFUSED TO GIVE URINE SAMPLE FOR TESTING ORDERED BY MD. PATIENT REQUESTING PHYSICIAN TO COME AN SPEAK WITH PATIENT. DR. SUAZO DISCUSSED HOSPITAL STAY AND COURSE OF TREATMENT WITH PATIENT . PATIENT CONTINUES TO REFUSE TREATMENT AND WANTS TO SIGN AMA. AMA FORMED SIGNED. TELE PACK REMOVED, MIDLINE REMOVED. PATIENT LEFT WITH ALL BELONGINGS.
--- NOTE | 2025-03-18 17:33 | DS ---
Discharge Summary Hospital Course Summary: HISTORY OF PRESENT ILLNESS: This is a 69-year-old male,from [facility] here for a vacation, a poor historian with past medical history of COPD,a heavy smoker,Hyp erlipidemia,hypertension,peripheral arterial disease,lupus and liver cirrhosis who present to the ED for complaints of cough,nasal congestion,fever and generalized body weakness started 2 days ago and got worse today. Patient reports he has clots on both legs and patient on Eliquis he said.Patient has left lower extremity swelling and redness discoloration.patient has discoloration to right lower extremity as well. Seen and examined patient in the ER awake,alert and coherent.Patient denies chest pain,palpitation shortness of breath. Latest vital signs temperature 98.4, heart rate 96, blood pressure 129/51 saturation 91% on room air. Labs: WBC 11 with negative left shift of neutrophils 87, hemoglobin 13, hematocrit 39 and platelet count 142. Sodium 128, chloride 95, lactic acid 1.9, total calcium 8.4 BNP 180. Influenza type a and B negative SARS COVID negative group a strep negative. Chest x-ray result revealed moderate left basilar infiltrate. Pneumonia likely. Left pleural effusion. Emphysematous lung changes. Right lower extremity arterial Doppler study result revealed atherosclerotic changes in the right lower limb arteries right lower extremity arteries demonstrate biphasic waveforms in common femoral superficial femoral and monophasic in the remainder of the arteries increased velocity in the right common femoral artery. No flow in the dorsalis pedis artery recommend CT or MR angiogram. Venous Doppler to right lower extremity result revealed no deep venous thrombosis evident on the right lower extremity. While in the ER patient received 1 L NS bolus, Tylenol 1000 mg p.o., Solu-Medrol 80 mg IV, DuoNeb treatment, ceftriaxone 1 g IV and azithromycin IV and nicotine patch 14 mg. patient admitted for further medical management. 03/14/2025: Patient was seen and evaluated bedside this morning, family at bedside. He is awake, alert, oriented x3, saturating 91% with2 L nasal cannula. Patient says that he is feeling good, wants to go home. Morning labs revealed white count 5.2, H&H 14.4, 42.1, CRP 79, BUN 10, creatinine 0.7. Chest X-ray revealed left basilar infiltrates, right lower extremity venous Doppler showed no DVT, right lower extremity arterial ultrasound no flow in the dorsalis pedis artery, waveforms in common femoral, superficial femoral, monophasic and remainder of RLE arteries. We will get CT abdominal aorta with BLE runoff, consult cardiology for further evaluation. Patient is currently on IV Solu- Medrol 40 mg b.i.d., IV Rocephin1 g Q 24, IV azithromycin, DuoNebs q.4 and nicotine patch. 03/15/2025: Patient was seen and evaluated bedside this morning, family at bedside. He is awake, alert, confused , saturating 94% with 2 L nasal. Patient says that he wants to back home. Morning labs are unremarkable. CT abdominal aorta with runoff showed atheromatous wall calcifications of aorta, its branches, iliac arteries and both lower limb arteries with multivessel short segment narrowing of common femoral and superficial femoral arteries narrow caliber flow in bilateral popliteal and tibioperoneal arteries. No demonstrable flow in bilateral distal anterior and posterior tibial arteries -moderate peripheral vascular disease. Cardiology recommended outpatient follow up as patient does not want further evaluation and treatment for PAD at this time. On telemetry patient had Had a run of Advanced Oncotherapy-tach 230, patient was seen walking around his room, symptomatic. Patient has been started on CIWA protocol, high-dose thiamine, Seroquel 12.5 mg prn t.i.d. for severe agitation as per Psychiatry recommendations. 03/16/2025: Patient was seen and evaluated bedside this morning, no family at bedside. He is awake, alert, oriented x3, saturating 97% with2 L nasal cannula. Patient says that he is doing well, he says that he changed his mind and wants to get procedure done for his severe PAD. Morning labs revealed sodium 134, potassium 3.6, white count 9, H and H 12.4, 36.4, magnesium 2.1, ammonia 23. Pending 2D echocardiogram, chest CT report. Patient continues on CIWA protocol with high-dose thiamine, IV Flagyl, IV doxycycline, IV Rocephin, IV Solu-Medrol. We will reconsult Dr. Bernardo eyelet maker for further evaluation and management of severe PAD. Cardiology, pulmonology on board we will continue to follow their recommendations. 03/17/2025: Patient was seen and evaluated this morning, no family at bedside. He is awake, alert, oriented x3, saturating 94% at room air. Patient says that he is doing good, denies any new or worsening symptoms. Labs revealed white count 9.2, H&H 12.6, 37.9, sodium 131, potassium 3.8. 2D echo showed LVEF 55- 60%, stage I diastolic dysfunction, severe concentric left ventricular hypertrophy. CT chest showed segmental consolidation in left lower lobe with moderate left pleural effusion compatible with pneumonia and left parapneumonic effusion, chronic smoking related/emphysematous lung disease and post inflammatory scarring. Respiratory culture showed growth of Klebsiella , Niki albicans. IV Rocephin has been stopped, patient was started on Zosyn, continue CIWA protocol with high-dose thiamine, IV Flagyl, IV doxycycline, IV Solu-Medrol. Cardiology, pulmonology on board we will continue to follow their recommendations. On 03/18/2025 Patient signed out against medical advice from room 409. As per the primary nurse, the patient does not wish to continue any treatment at this time and is refusing to stay and complete evaluation and disposition. The patient is fully aware of all risks and benefits of leaving against medical advice. Possible benefits include correction of the current medical condition and improvement of symptoms. However the patient was advised that possible risk of leaving against medical advice include worsening of the current medical condition, including or causing that. The Patient verbalized understanding of the risk and benefits discussed. Despite this the patient signed out against medical advice. Oil Field Laborer(s): Pulmonology: MJ CHAVARRIA MD Cardiology: TOVA OAKLEY MD CONSULTATION REPORT Name: CHETNA SORIANO Acct: [id number] MR: [id number] : 1955 Admit Date: 03/13/25 ALISTAIR JACKSON [address] [address] [facility] CARDIOLOGY CONSULTATION REPORT Cardiology consultation note dictated for Cele Bernardo MD Date Patient Seen: Mar 14, 2025 Time of Visit: 14:07 Reason for Consultation: PAD History of Present Illness: That is 69-year-old male from [place] with a past medical history of spinal ablation therapy, COPD, active smoker of 1ppd, hypertension, hyperlipidemia, atrial arrhythmia unknown type on chronic anticoagulation with Eliquis, lupus, liver cirrhosis, PAD and possible peripheral angiogram vs venogram who presented to the ED with complaints of a productive cough, nasal congestion, and general body weakness for two days prior to arrival. He was found to have left lower lobe pneumonia and has been receiving IV ABXs. Cardiology has been consulted for PAD. The patient is a poor historian and is unable to provide a detailed cardiac history. He has listed on his home medication list Cardizem, Digoxin and Eliquis, but he is unaware of having any arrhythmias. Telemetry reporting sinus tachycardia with PACs heart rate in the 100s. EKG on admission demonstrated sinus tachycardia with a hr of 106bpm, PACs, RBBB, and 1mm ST depression in lead II. His lower extremities reveal chronic PAD changes such as hyperpigmentation, dry ulcers to his right second and fifth toes, lack of hair, brittle toe nails and are cool to touch. Unable to palpate bilateral AT or PT pulses. He denies lower extremity pain. Right lower extremity arterial Doppler 03/13/2025 revealed biphasic waveforms in the common femoral and superficial femoral arteries with monophasic waveform in the remainder of the arteries, and no flow in the right dorsalis pedis artery. A CT Abd Aorta with BLE runoff is pending. The patient states he wants to go home and would not like any further workup of his lower extremities if it will keep him hospitalized during . He states he was in the beginning stages of a PAD workup in [place] with his primary eyelet maker. He adds he will be in [place] for the next six months and can follow-up with a eyelet maker locally. Past Medical History: As per HPI and summarized below Past Surgical History: Spinal ablations Family History: The patient's mother and father had myocardial infarctions in their 50s. Social History: The patient lives with his . Habits: The patient denies illicit drug use but does admit to cigarettes, smoking 1 pack per day and on occasion alcohol consumption. Home Meds: Eliquis 5 mg b.i.d. Digoxin 125 mcg daily Diltiazem ER 120 mg daily Atorvastatin 40 mg daily Duloxetine 60 mg daily Ferrous fumarate 300 mg daily Trelegy Ellipta 100-62.5-25, 1 puff inhaled daily Folic acid 0.8 mg daily Hydroxychloroquine 200 mg b.i.d. Pantoprazole 40 mg b.i.d. Pregabalin 150 mg t.i.d. Valacyclovir 500 mg b.i.d. Oxycodone 10 mg,1-2 tabs b.i.d. p.r.n. Current Meds: Medications Dose Ordered Sig/Carmen Start Time Stop Time Status Last Admin Acetaminophen 650 mg Q6H PRN 03/14/25 00:00 04/13/25 00:00 Acetaminophen 650 mg Q4H PRN 03/14/25 00:00 04/13/25 00:00 Ondansetron HCl 4 mg Q6H PRN 03/14/25 00:00 04/13/25 00:00 Albuterol 1 udvial [id number] 03/14/25 02:00 04/13/25 01:59 03/14/25 14:02 Famotidine 20 mg DAILY 03/14/25 09:00 04/13/25 08:59 03/14/25 10:53 Azithromycin 250 ml @ 250 mls/hr Q24H 03/14/25 00:00 03/24/25 00:00 Sodium Chloride 1,000 ml @ 100 mls/hr Q10H 03/14/25 00:00 04/13/25 00:00 Nicotine 14 mg DAILY 03/15/25 22:00 04/14/25 21:59 Ceftriaxone Sodium 1 gm Q24H 03/14/25 00:30 03/24/25 00:29 Methylprednisolone Sodium Succinate 40 mg BID 03/14/25 09:00 04/13/25 08:59 03/14/25 10:54 Apixaban 5 mg BID 03/14/25 21:00 04/13/25 20:59 Atorvastatin Calcium 40 mg DAILY 03/15/25 09:00 04/14/25 08:59 Digoxin 125 mcg AM 03/15/25 09:00 04/14/25 08:59 Diltiazem HCl 120 mg HS 03/14/25 21:00 04/13/25 20:59 Ferrous Fumarate 324 mg AM 03/15/25 09:00 04/14/25 08:59 Hydroxychloroquine Sulfate 200 mg BID 03/14/25 21:00 03/28/25 20:59 Valacyclovir HCl 500 mg BID 03/14/25 21:00 04/13/25 20:59 Diltiazem HCl 240 mg DAILY 03/15/25 09:00 04/14/25 08:59 Duloxetine HCl 60 mg DAILY 03/15/25 09:00 04/14/25 08:59 Home Med (Fluticasone/ Umeclidin/ Vilan... DAILY 03/15/25 09:00 04/14/25 08:59 Folic Acid 1 mg DAILY 03/15/25 09:00 04/14/25 08:59 Pregabalin 150 mg TID 03/14/25 14:00 04/13/25 13:59 Review of Systems: CONST: No fever, fatigue, or weight changes. EYES: No recent vision problems. ENT: No congestion, ear pain, or sore throat. C/V: No chest pain, palpitations, or edema. RESP: No cough, congestion, wheezing or shortness of breath. GI: No abdominal pain, nausea, vomiting, constipation, or diarrhea. : No incontinence or dysuria. SKIN: No rash. NEURO: No headache, focal numbness or weakness, dizziness, or seizures. PSYCH: No depression or anxiety. HEME: No abnormal bruising or bleeding. LYMPH: No swollen glands. Physical Examination: GENERAL: No acute distress. HEAD: Normal with no signs of head trauma. EYES: Conjunctiva and sclera normal. ENT: Hearing grossly intact, normal oropharynx. NECK: Supple without JVD. Normal carotid upstrokes without bruits. LUNGS: Diminished breath sounds to bases bilaterally. HEART: Normal rate and rhythm. Normal S1 and S2 without murmurs, gallop or rub. VASC: Unable to palpate bilateral JORJE or PT pulses. ABD: Bowel sounds normal, soft, nontender, no masses, no organomegaly. No audible bruits. : Not examined LYMPH: No lymphadenopathy noted. EXT: No clubbing, cyanosis or edema. SKIN: Bilateral lower extremities with hyperpigmentation noted. Dry ulcerat ions to right 2nd and 5th toe. NEURO: Awake, alert, and oriented x3. No focal sensory or strength deficits noted. Vital Signs (last 8hr) Date Time Temp Pulse Resp B/P (MAP) Pulse Ox O2 Delivery O2 Flow Rate FiO2 03/14/25 12:10 98.1 94 16 154/70 92 Nasal Cannula 2.0 03/14/25 10:36 75 20 03/14/25 10:35 75 20 N/Cannula Low lpm 2.0 28 03/14/25 08:00 91 Nasal Cannula* 1 24 03/14/25 07:16 97.9 93 16 158/76 91 Nasal Cannula 2.0 03/14/25 06:20 81 20 03/14/25 06:20 81 20 N/Cannula Low lpm 2.0 28 Laboratory: Hematology Labs: Test 03/14/25 07:58 03/13/25 18:41 Range/Units White Blood Count 5.2 # 4.8-10.8 K/uL Red Blood Count 4.44 L 4.50-6.20 MIL/uL Hemoglobin 14.4 14.0-18.0 g/dL Hematocrit 42.1 42-54 % Mean Corpuscular Volume 94.8 79-99 fL Mean Corpuscular Hemoglobin 32.4 27.0-33.0 pg Mean Corpuscular Hemoglobin Concent 34.2 32.0-36.0 g/dL Red Cell Distribution Width 13.7 11.0-15.5 % Platelet Count 151 130-400 K/uL Mean Platelet Volume 11.7 H 7.5-10.5 fL Nucleated Red Blood Cells 0.0 0.0-0.19 % Immature Granulocyte % (Auto) 0.4 0-1 % Neutrophils (%) (Auto) 87.0 H 40.0-77.0 % Lymphocytes (%) (Auto) 8.0 L 21.0-51.0 % Monocytes (%) (Auto) 4.3 3.0-13.0 % Eosinophils (%) (Auto) 0.1 0.0-8.0 % Basophils (%) (Auto) 0.2 0.0-5.0 % Neutrophils # (Auto) 10.2 H 1.8-7.7 K/uL Lymphocytes # (Auto) 0.9 L 1.0-4.8 K/uL Monocytes # (Auto) 0.5 0.1-1.0 K/uL Eosinophils # (Auto) 0.01 0.00-0.70 K/uL Basophils # (Auto) 0.02 0.00-0.20 K/uL Absolute Immature Granulocyte (auto 0.05 0-1 K/uL White Cell Morphology Comment See comments Chemistry Labs: Test 03/14/25 07:58 03/14/25 07:38 03/13/25 18:41 Range/Units Sodium Level 130 L 136-145 mmol/L Potassium Level 4.0 3.5-5.1 mmol/L Chloride Level 96 L 101-111 mmol/L Carbon Dioxide Level 27 21-32 mmol/L Blood Urea Nitrogen 10 7-18 mg/dL Creatinine 0.7 0.5-1.3 mg/dL Glomerular Filtration Rate Calc 100 >90 mL/min Random Glucose 155 #H 70-105 mg/dL Total Calcium 8.4 L 8.5-10.1 mg/dL Total Bilirubin 0.4 0.2-1.0 mg/dL Aspartate Amino Transf (AST/SGOT) 28 10-37 U/L Alanine Aminotransferase (ALT/SGPT) 18 12-78 U/L Alkaline Phosphatase 103 50-136 U/L C-Reactive Protein, Quantitative 79.50 H 0.5-3.0 mg/L Total Protein 7.1 6.0-8.3 g/dL Albumin 2.6 L 3.5-5.0 g/dL Procalcitonin < 0.05 L 0.05-0.5 ng/mL Lactic Acid Level 1.9 0.8-2.5 mmol/L Total Creatine Kinase 132 21-232 U/L Troponin I High Sensitivity 29 4-75 ng/L B-Type Natriuretic Peptide 180 H 0-100 pg/mL Coagulation Labs: Test 03/13/25 20:28 Range/Units Prothrombin Time 12.2 H 9.6-11.6 SEC Prothromb Time International Ratio 1.17 H 0.85-1.15 Activated Partial Thromboplast Time 37.6 H 26.3-35.5 SEC Diagnostics / Radiology: Impression and Plan: PAD Community acquired pneumonia Spinal ablation therapy COPD Active smoker of 1ppd Hypertension Hyperlipidemia Atrial arrhythmia unknown type on chronic anticoagulation with Eliquis Lupus Liver cirrhosis PAD and possible peripheral angiogram vs venogram PAD Dry ulcers to his right second and fifth toes Right lower extremity arterial Doppler 03/13/2025 revealed biphasic waveforms in the common femoral and superficial femoral arteries with monophasic waveform in the remainder of the arteries, and no flow in the right dorsalis pedis artery. -CT Abd Aorta with BLE runoff is pending. -The patient states he wants to go home and would not like any further workup of his lower extremities if it will keep him hospitalized during [place]. He adds he will be in [place] for the next six months and can follow-up with a eyelet maker locally. Addendum: The patient does not have open wounds at this time but has dry ulcers. I suspect he does indeed have peripheral arterial disease but he is experiencing no significant claudication and wishes to be worked up as an outpatient. He can follow up with me in 1-2 weeks. ATTESTATION BY PHYSICIAN I have seen and examined the patient. I reviewed the documentation, medical decision making, and treatment plan as noted by the mid-level provider above. I agree with the findings and plan of care. CELE BERNARDO MD, VALERIE L FNP Mar 14, 2025 14:08 CELE BERNARDO MD Mar 14, 2025 19:01 Electronically Signed by: ALISTAIR CHAPMAN05/15/24 1516 Electronically Co-Signed by: CELE BERNARDO MD03/14/25 190 CONSULTATION REPORT Name: CHETNA SORIANO Acct: [id number] MR: [id number] : 1955 Admit Date: 03/13/25 [place] [address] [facility] CONSULTATION NOTE Date Patient Seen: Mar 14, 2025 Time of Visit: 10:46 Supervising Physician: MJ CHAVARRIA MD Reason for Consultation: PNEUMONIA PRESENT ON ADMISSION Primary Care Physician: [ ] Outpatient Specialists: [ ] Inpatient Consults: [ ] PROBLEM LIST: 1. COMMUNITY ACQUIRED PNEUMONIA , POA 2. CHRONIC SMOKER 3. COPD 4. ALCOHOL DRINKER 5. HYPERLIPIDEMIA 6. HYPERTENSION 7.LUPUS 8.LIVER CIRRHOSIS HPI: Patient is a 69 year old gentleman originally from [facility] who spent winter here at [place], started having SOB , cough, phlegm production, chills and fever reason he decided to presented to ED patient found with sign of Pneumonia in the chest x ray , he is a COPD, hyperlipidemia, HTN, lupus and cirrhosis of liver, states he drinks alcohol on daily basis 1 or 2 but with no withdrawal symptoms when he stops drinking for several days, he is a smoker as well 1 pack daily, patient has been explained he will need to continue with antibiotics and nebulizer treatments. PAST MEDICAL HX: see above PAST SURGICAL HX: noncontributory SOCIAL HISTORY: No tobacco, ETOH, or illicit drug use Coded Allergies: No Known Drug Allergies (Unverified Allergy, Unknown, 04/25/24) REVIEW OF SYSTEMS: 12 point ROS reviewed with patient. Pertinent positives mentioned above. Otherwise negative. PHYSICAL EXAM: GENERAL: alert, weak, awake oriented x 3 HEENT: EOMI, Sclera non icteric, moist mucosa NECK: Supple, no JVD, trachea midline LUNGS: Clear breath sounds bilaterally. No wheezes. Decreased breath sound left side. HEART: Regular rate and rhythm. Normal S1 and S2, without murmurs ABD: Abdomen soft, nontender. Bowel sounds present EXT: No clubbing cyanosis or edema NEURO: Alert and oriented to person, follows commands Vital Signs (last 8hr) Date Time Temp Pulse Resp B/P (MAP) Pulse Ox O2 Delivery O2 Flow Rate FiO2 03/14/25 10:36 75 20 03/14/25 10:35 75 20 N/Cannula Low lpm 2.0 28 03/14/25 07:16 97.9 93 16 158/76 91 Nasal Cannula 2.0 03/14/25 06:20 81 20 03/14/25 06:20 81 20 N/Cannula Low lpm 2.0 28 03/14/25 04:00 98.1 98 18 169/69 Nasal Cannula 2.0 03/14/25 03:30 170/69 LABS: Hematology Labs: Test 03/14/25 07:58 03/13/25 18:41 Range/Units White Blood Count 5.2 # 4.8-10.8 K/uL Red Blood Count 4.44 L 4.50-6.20 MIL/uL Hemoglobin 14.4 14.0-18.0 g/dL Hematocrit 42.1 42-54 % Mean Corpuscular Volume 94.8 79-99 fL Mean Corpuscular Hemoglobin 32.4 27.0-33.0 pg Mean Corpuscular Hemoglobin Concent 34.2 32.0-36.0 g/dL Red Cell Distribution Width 13.7 11.0-15.5 % Platelet Count 151 130-400 K/uL Mean Platelet Volume 11.7 H 7.5-10.5 fL Nucleated Red Blood Cells 0.0 0.0-0.19 % Immature Granulocyte % (Auto) 0.4 0-1 % Neutrophils (%) (Auto) 87.0 H 40.0-77.0 % Lymphocytes (%) (Auto) 8.0 L 21.0-51.0 % Monocytes (%) (Auto) 4.3 3.0-13.0 % Eosinophils (%) (Auto) 0.1 0.0-8.0 % Basophils (%) (Auto) 0.2 0.0-5.0 % Neutrophils # (Auto) 10.2 H 1.8-7.7 K/uL Lymphocytes # (Auto) 0.9 L 1.0-4.8 K/uL Monocytes # (Auto) 0.5 0.1-1.0 K/uL Eosinophils # (Auto) 0.01 0.00-0.70 K/uL Basophils # (Auto) 0.02 0.00-0.20 K/uL Absolute Immature Granulocyte (auto 0.05 0-1 K/uL White Cell Morphology Comment See comments Chemistry Labs: Test 03/14/25 07:58 03/13/25 18:41 Range/Units Sodium Level 130 L 136-145 mmol/L Potassium Level 4.0 3.5-5.1 mmol/L Chloride Level 96 L 101-111 mmol/L Carbon Dioxide Level 27 21-32 mmol/L Blood Urea Nitrogen 10 7-18 mg/dL Creatinine 0.7 0.5-1.3 mg/dL Glomerular Filtration Rate Calc 100 >90 mL/min Random Glucose 155 #H 70-105 mg/dL Total Calcium 8.4 L 8.5-10.1 mg/dL Total Bilirubin 0.4 0.2-1.0 mg/dL Aspartate Amino Transf (AST/SGOT) 28 10-37 U/L Alanine Aminotransferase (ALT/SGPT) 18 12-78 U/L Alkaline Phosphatase 103 50-136 U/L C-Reactive Protein, Quantitative 79.50 H 0.5-3.0 mg/L Total Protein 7.1 6.0-8.3 g/dL Albumin 2.6 L 3.5-5.0 g/dL Lactic Acid Level 1.9 0.8-2.5 mmol/L Total Creatine Kinase 132 21-232 U/L Troponin I High Sensitivity 29 4-75 ng/L B-Type Natriuretic Peptide 180 H 0-100 pg/mL Coagulation Labs: Test 03/13/25 20:28 Range/Units Prothrombin Time 12.2 H 9.6-11.6 SEC Prothromb Time International Ratio 1.17 H 0.85-1.15 Activated Partial Thromboplast Time 37.6 H 26.3-35.5 SEC DIAGNOSTICS / RADIOLOGY RESULTS: [ ] PLAN NEURO: Minimize central acting medications as possible. Maintain fall precautions, adequate lighting during the day PULMONARY: Supplemental 02 as needed. Maintain aspiration precautions at all times CARDIOVASCULAR: Follow hemodynamics. Vital signs per facility protocol GI & NUTRITION: Continue with nutritional support. Continue stool softeners and laxatives as needed. KIDNEYS & ELECTROLYTES: Strict monitoring of intake, output and overall fluid balance. Avoid nephrotoxic medications to the extent possible. Medications to be dosed according to renal function. Monitor electrolytes and replace as needed ENDOCRINE: Maintain blood glucose between 100-180 at all times. Hypoglycemia protocol in place INFECTIOUS DISEASE: Trend temperature, WBC and procalcitonin level Follow cultures, deescalate antibiotics as soon as possible. Panculture if new onset fever ONCOLOGY/HEMATOLOGY/COAGULATION: Monitor for s/s of bleeding Monitor hemoglobin, coagulation studies as needed SKIN: Pressure ulcer prevention per facility protocol Specialty mattress ORTHO/REHAB: Continue PT/OT Prophylaxis: Continue GI and DVT prophylaxis Code Status: Full Resuscitation Disposition: TBD Other: Total patient care time 35 minutes excluding all procedures. ATTESTATION BY PHYSICIAN Documentation assistance provided by a scribe, information recorded by the scribe was done at my direction and has been reviewed and validated by me." SARAH CHAVARRIA MD I personally scribed for MJ CHAVARRIA MD ([email or web address]) on 03/14/25 at 10:54. Electronically submitted by Nadine Marte ([email or web address]). MJ CHAVARRIA MD Mar 14, 2025 10:54 Electronically Signed by: MJ CHAVARRIA MD03/14/25 1317 Electronically Co-Signed by: Procedure(s): [facility] [address] [place] [id number] IMAGING REPORT Signed PATIENT: CHETNA SORIANO MR#: [id number] : 1955 SEX: M AGE: 69 LOCATION: [facility] ORDER 51 STATUS: REG REPORT#: [id number] SERVICE 50 REASON: COUGH ORDERING PHYSICIAN: MOI STARKS MD PROCEDURE: CXR1VW - CHEST 1VW EXAM: CR Chest, 1 View. CLINICAL HISTORY: COUGH COMPARISON: None provided. FINDINGS: LUNGS: Moderate left basilar infiltrate. Pneumonia likely Emphysematous lung changes PLEURAL SPACES: Left pleural effusion MEDIASTINUM: Cardiac size and mediastinal contours within normal limits. BONES: No acute osseous abnormality. IMPRESSION: 1. Moderate left basilar infiltrate. Pneumonia likely 2. Left pleural effusion 3. Emphysematous lung changes /[place] DICTATED BY: KORY WAYNE MD DATE: 03/13/252026 ELECTRONICALLY SIGNED BY: KORY WAYNE MD DATE: 03/13/252026 [place] [address] [address] IMAGING REPORT Signed PATIENT: CHETNA SORIANO MR#: [id number] : 1955 SEX: M AGE: 69 LOCATION: [facility] ORDER 35 STATUS: [facility] REPORT#: [id number] SERVICE 32 REASON: swelling ORDERING PHYSICIAN: BRENT BELL PROCEDURE: VENOUS UNI - US VENOUS DOPPLER UNILATERAL EXAM: US for Deep Venous Thrombosis, right lower Extremity. CLINICAL HISTORY: Leg Pain and Swelling TECHNIQUE: Real-time ultrasound scan of the veins of the right ower extremity with color Doppler flow, spectral waveform analysis and compression. COMPARISON: None provided. FINDINGS: DEEP VEINS: The common femoral, superficial femoral, and popliteal veins are echolucent and compressible. There is normal color Doppler flow throughout. The visualized calf veins appear patent. SOFT TISSUES: No popliteal fossa cyst or other abnormalities. IMPRESSION: No deep venous thrombosis evident on right lower extremity examination. /[place] DICTATED BY: KORY WAYNE MD DATE: 03/13/252127 ELECTRONICALLY SIGNED BY: KORY WAYNE MD DATE: 03/13/252127 [place] [address] [address] IMAGING REPORT Signed PATIENT: CHETNA SORIANO MR#: [id number] : 1955 SEX: M AGE: 69 LOCATION: H ORDER 04 STATUS: REG ER REPORT#: [id number] SERVICE 03 REASON: right foot discoloration ORDERING PHYSICIAN: BRENT BELL PROCEDURE: ART U LE - US ARTERIAL UNILA LOW EXT DUPL EXAMINATION: DUPLEX ULTRASOUND EXAMINATION OF THE RIGHT LOWER EXTREMITY ARTERIES. CLINICAL HISTORY: Right foot discoloration. COMPARISON: None. FINDINGS: Peak systolic velocities within the right lower arteries are as follows: Common femoral artery: 186 cm/s. Superficial femoral artery: 78 cm/s at proximal, 90 cm/s at mid, and 42 cm/s at distal segments. Popliteal artery: 59 cm/s at proximal and 39 cm/s at distal segments. Posterior tibial artery: 11 cm/s. Anterior tibial artery: 46 cm/s. Dorsalis pedis artery: No flow. The right lower limb arteries demonstrate biphasic waveforms in common femoral, superficial femoral and monophasic in the remainder of the arteries. There are Atherosclerotic changes, characterised by multifocal atherosclerotic plaques and intimal wall thickening, in the right lower limb arteries. IMPRESSION: atherosclerotic changes in the right lower limb arteries. The right lower limb arteries demonstrate biphasic waveforms in common femoral, superficial femoral and monophasic in the remainder of the arteries. Increased velocity in the right common femoral artery. No flow in the dorsalis pedis artery. Recommend CT or MR angiogram. /[place] DICTATED BY: KORY WAYNE MD DATE: 03/13/252145 ELECTRONICALLY SIGNED BY: KORY WAYNE MD DATE: 03/13/252145 [place] [address] [place] [address] IMAGING REPORT Signed PATIENT: CHETNA SORIANO MR#: [id number] : 1955 SEX: M AGE: 69 LOCATION: [facility] ORDER 0308 STATUS: ADM IN REPORT#: [id number] SERVICE 0800 REASON: LEFT LOWER EXTREMITY SWELLING ORDERING PHYSICIAN: LAILA WISDOM PROCEDURE: VENOUS UNI - US VENOUS DOPPLER UNILATERAL EXAM: US for Deep Venous Thrombosis, left Lower Extremity. CLINICAL HISTORY: Leg Pain and Swelling TECHNIQUE: Real-time ultrasound scan of the veins of the left lower extremity with color Doppler flow, spectral waveform analysis, and compression. COMPARISON: None provided. FINDINGS: DEEP VEINS: The common femoral, superficial femoral, and popliteal veins are echolucent and compressible. There is normal color Doppler flow throughout. The visualized calf veins appear patent. SOFT TISSUES: No popliteal fossa cyst or other abnormalities. Enlarged reactive lymph node in the left inguinal region measuring 1.4 x 0.5 cm. IMPRESSION: No deep venous thrombosis evident on left lower extremity examination. /[place] DICTATED BY: BELEN HARDING Jr., MD DATE: 03/15/25324 ELECTRONICALLY SIGNED BY: BELEN HARDING Jr., MD DATE: 03/15/25324 [place] [address] IMAGING REPORT Signed PATIENT: CHETNA SORIANO MR#: [id number] : 1955 SEX: M AGE: 69 LOCATION: [facility] ORDER 1014 STATUS: ADM IN REPORT#: [id number] SERVICE 1007 REASON: Severe PAD ORDERING PHYSICIAN: ANTOINE SUAZO MD PROCEDURE: CTA ABDAOR - CT ANGIO ABD AORTA W RUNOFF EXAMINATION: CT ANGIOGRAM OF ABDOMEN AND PELVIS AND RUNOFFS OF THE BILATERAL LOWER EXTREMITIES. CLINICAL HISTORY: Severe peripheral arterial disease COMPARISON: None provided. TECHNIQUE: MDCT angiogram of the abdominal aortic vessels was performed after administration of intravenous contrast. FINDINGS: Abdominal aorta is normal in size and caliber. There are atheromatous wall calcification of the aorta, its branches, iliac arteries, and both lower limb arteries. There is no aneurysm or dissection. There is no critical stenosis or occlusion. The celiac and superior mesenteric arteries are patent with mild stenosis proximally. Bilateral renal arteries are calcified with mild stenosis proximally. There is no critical stenosis or occlusion. The inferior mesenteric artery is normal in caliber. Bifurcation morphology is normal. There is no stenosis or occlusion. The bilateral external iliac arteries are normal in caliber. Their branches are normal, and the bilateral internal iliac arteries are normal; there is no stenosis or occlusion. Multilevel short-segment narrowing of the bilateral common femoral and superficial femoral arteries with narrow caliber flow in the bilateral popliteal and tibio-peroneal arteries. No demonstrable flow in bilateral distal anterior and posterior tibial arteries. The bilateral profunda femoris and popliteal arteries are normal in size and caliber. There is no stenosis or occlusion. There is a small right pleural effusion and moderate left pleural effusion with overlying atelectasis. Within the abdomen and pelvis, the liver is normal in caliber with uniform decreased density; there is a left renal cortical cyst measuring 1.3 x 1.5 x 1.3 cm; gallbladder, pancreas, spleen, adrenal glands, and right kidney are within normal limits; bowel loops are normal in caliber without evidence of obstruction, ileus, or bowel wall thickening, and the appendix is normal; and urinary bladder, prostate, and seminal vesicles appear normal in caliber. The included chest reveals: Moderate left and minimal left pleural effusion. Ground glassing of the lingula and left lower lobe. Centrilobular and paraseptal emphysema of the lungs. There is fatty atrophy of both gastrocnemius muscles. IMPRESSION: Atheromatous wall calcification of the aorta, its branches, iliac arteries, and both lower limb arteries with multilevel short-segment narrowing of the bilateral common femoral and superficial femoral arteries with narrow caliber flow in bilateral popliteal and tibio-peroneal arteries. No demonstrable flow in bilateral distal anterior and posterior tibial arteries. moderate peripheral vascular disease. No acute abdominal or pelvic pathology. Small right pleural effusion and moderate left pleural effusion with overlying atelectasis. /[place] DICTATED BY: MELL COLVIN MD DATE: 03/15/251215 ELECTRONICALLY SIGNED BY: MELL COLVIN MD DATE: 03/15/251215 [place] [address] [place] [id number] IMAGING REPORT Signed PATIENT: CHETNA SORIANO MR#: [id number] : 1955 SEX: M AGE: 69 LOCATION: [facility] ORDER STATUS: ADM IN REPORT#: [id number] SERVICE 0000 REASON: chf ORDERING PHYSICIAN: JEFF GARCIA MD PROCEDURE: ECHO CMP - ECHO 2-D COMPLETE APPROVED REPORT EXAM: Two-dimensional and M-mode echocardiogram with Doppler and color Doppler. INDICATION ICD: congestive heart failure 2D Dimensions RVDd 3.8 cm LVEF(%) 47.5 (>50%) LVED Vol(simp.) 86.9 mL IVSd 1.7 (0.7-1.1cm) FS(%) 23 % LVES Vol(simp.) 33.6 mL LVDd 2.8 (3.8-5.6cm) LA (2D) 3.0 (1.6-4.0cm) LVEF(%, simp.) 61 % PWd 1.9 (0.7-1.1cm) Ao Root(2D) 3.1 (2.0-3.7cm) LA ESV INDEX (BP) 59.51 mL/m2 LVDs 2.2 (2.5-4.0cm) LVOT diam 2.3 (1.8-2.4cm) IVC diam 1.6 cm Deformation Strain Apical 4 -12.0 % Apical 2 -14.6 % Apical 3 -12.9 % Global Strain -13.2 % M-Mode Dimensions EPSS 1.3 cm LA (MM) 3.8 (1.6-4.0cm) Ao Root(MM) 3.3 (2.0-3.7cm) Aortic Valve AoV Vmax 3.4 m/s Ao Peak GR 45.9 mmHg LVOT Vmax 1.0 m/s AoV VTI 0.7 m Ao Mean GR 23.6 mmHg LVOT VTI 0.19 m VIPUL (VMAX) 1.22 cm2 Al P1/2T 330 ms VIPUL (VTI) 1.1 cm2 Mitral Valve MV E Vmax 134.8 cm/s DECEL Time 197 ms MV A Vmax 147.3 cm/s P 1/2 T 77 ms E/A ratio 0.9 MVA (PHT) 2.9 cm2 TDI E/E' Medial 23.0 E/E' Lateral 20.1 Medial E' Peak V 5.85 cm/s Lateral E' Peak V 6.72 cm/s Tricuspid Valve TR Vmax 2.4 m/s RAP (EST) 3 mmHg RVSP 25.1 mmHg TR Peak GR 22.1 mmHg Left Ventricle The left ventricle is normal size. No regional wall motion abnormalities noted. Severe concentric left ventricular hypertrophy. Left ventricular systolic function is normal, estimated LVEF is 55-60%. Stage I diastolic dysfunction. Right Ventricle The right ventricle is normal size. The right ventricular systolic function is normal. Atria The left atrium is severely dilated, 60 ml/m2. The The right atrium size is normal. Aortic Valve Aortic valve is trileaflet. The leaflets are thickened and calcified. Moderate aortic regurgitation, pressure half-time 295 ms Moderate aortic stenosis: Peak velocity 3.3 m/s, mean gradient 26 mmHg Mitral Valve Mild mitral annular calcification is noted. The leaflets are moderately thickened and calcified. Trace mitral regurgitation. There is no mitral valve stenosis. Tricuspid Valve The tricuspid valve is normal in structure. Trace tricuspid regurgitation. RVSP is 22 mmHg. Pulmonic Valve Pulmonic valve is not well visualized. Great Vessels The aortic root is normal in size. The IVC is normal in size and collapses >50% with inspiration. Pericardium There is no pericardial effusion. Conclusion The left atrium is severely dilated, 60 ml/m2. The Severe concentric left ventricular hypertrophy. No regional wall motion abnormalities noted. Left ventricular systolic function is normal, estimated LVEF is 55-60%. Stage I diastolic dysfunction. Moderate aortic stenosis: Peak velocity 3.3 m/s, mean gradient 26 mmHg Moderate aortic regurgitation, pressure half-time 295 ms. Trace mitral regurgitation. Trace tricuspid regurgitation. PASP is 25 mmHg. There is no pericardial effusion. DICTATED BY: CELE GOEL MD DATE: 03/16/25 0717 ELECTRONICALLY SIGNED BY: CELE GOEL MD DATE: 12/2336 [facility] [address] [place] [address] IMAGING REPORT Signed PATIENT: CHETNA SORIANO MR#: [id number] : 1955 SEX: M AGE: 69 LOCATION: [facility] ORDER 51 STATUS: ADM IN REPORT#: [id number] SERVICE 48 REASON: CAP ORDERING PHYSICIAN: JEFF GARCIA MD PROCEDURE: CHEST WO - CT CHEST W/O CONTRAST EXAM: CT SCAN OF THE CHEST WITHOUT CONTRAST Clinical statement: Community-acquired pneumonia; coronal CT chest. STUDY PROTOCOL: A multislice CT scan of the chest was performed without intravenous contrast. Axial images were obtained from the thoracic inlet through the upper abdomen with multiplanar reformations. RADIATION DOSE: CTDIvol 6.10 mGy; DLP 254.20 mGycm. CONTRAST: No intravenous contrast administered. COMPARISON: Chest radiograph from 03/13/2025. FINDINGS: Soft tissues: Visualized soft tissues of the chest wall and lower neck are unremarkable without focal mass or fluid collection. Lungs and large airways: Trachea and main bronchi are patent. There is subsegmental atelectasis within the lingula of the left upper lobe. Subsegmental consolidation is present in the left lower lobe, compatible with focal airspace disease. Diffuse emphysematous changes involve both lungs, with centrilobular, subpleural, and paraseptal cystic lucencies of varying size. A few small fibrotic-appearing nodules are present in the right upper lobe. No discrete suspicious noncalcified pulmonary mass is identified. Pleura: Moderate left pleural effusion is present. No right pleural effusion or pleural-based mass is seen. No pneumothorax is identified. Heart and pericardium: Heart size is within normal limits. No pericardial effusion is seen. Moderate coronary and aortic root calcifications are present, compatible with atherosclerotic disease. Aorta: Thoracic aorta is normal in caliber without aneurysm or dissection. Moderate aortic wall calcifications are present, consistent with atherosclerosis. Pulmonary arteries: Main and central pulmonary arteries are normal in caliber on these noncontrast images; evaluation for pulmonary embolism is limited without contrast. Lymph nodes: No enlarged mediastinal, hilar, or axillary lymph nodes are identified. Mediastinum and quin: Mediastinal structures and quin are unremarkable without focal mass or abnormal soft tissue density. Chest wall and lower neck: No chest wall mass, hematoma, or subcutaneous emphysema is identified. Bones/joints: No acute rib fracture or other acute osseous injury is identified. There is diffuse osteopenia. Degenerative changes are present in the thoracic spine with a chronic moderate compression deformity of T8. No aggressive osseous lesion is seen. Upper abdomen: Visualized upper abdominal organs are otherwise unremarkable. A 3 mm calculus is present in the right kidney, consistent with a small nonobstructing renal calculus. IMPRESSION: * Subsegmental consolidation in the left lower lobe with moderate left pleural effusion in a patient with clinical history of community-acquired pneumonia, compatible with pneumonia and likely parapneumonic effusion. Recommend appropriate antimicrobial therapy and follow-up chest radiograph in approximately 68 weeks to document resolution, particularly if the patient has risk factors for malignancy. * Subsegmental atelectasis in the lingula of the left upper lobe. * Diffuse emphysematous changes in both lungs with a few small fibrotic nodules in the right upper lobe, compatible with chronic smoking-related/emphysematous lung disease and postinflammatory scarring. * Chronic thoracic spine changes including osteopenia, degenerative changes, and chronic moderate compression deformity of T8, without acute osseous injury. * Small nonobstructing 3 mm right renal calculus. * Compared with the chest radiograph from 03/13/2025, CT confirms left basilar airspace disease and left pleural effusion corresponding to the prior reported infiltrate and effusion, with similar emphysematous changes and no additional acute cardiopulmonary abnormality identified. /[place] DICTATED BY: PATEL FRY MD DATE: 03/16/252237 ELECTRONICALLY SIGNED BY: PATEL FRY MD DATE: 03/16/252237 Assessment/Plan: ASSESSMENT: Sepsis due to community-acquired pneumonia POA COPD exacerbation POA Acute respirsatory failure POA Alcohol use disorder W/withdrawal Acute anemia POA Hyponatremia POA Hypochloremia POA Hypocalcemia POA Elevated BNP POA Peripheral arterial disease POA Hypertension POA Hyperlipidemia POA Nicotine dependence POA PLAN: Sepsis due to community-acquired pneumonia POA COPD exacerbation POA Acute respirsatory failure POA On presentation heart rate 113, temperature 99.9, white count 11.7, lactic acid 1.9 Chest x-ray showed moderate left basilar infiltrates likely pneumonia. Continue IV Flagyl Q8, doxycycline 100 mg b.i.d. PO Continue IV Solu-Medrol 40 mg b.i.d., DuoNebs q.4 Respiratory culture showed growth of Klebsiella, Niki albicans IV Rocephin has been stopped, IV Zosyn has been started White count today 9 Pulmonology on board Peripheral arterial disease POA Arterial ultrasound of right lower extremity showed basically from seen, femoral, superficial femoral and monophasic in the remainder of the arteries. No flow in dorsalis pedis artery. Ultrasound of right lower extremity showed no DVT CT abdominal aorta with BLE runoff revealed atheromatous wall calcifications of aorta, its branches, iliac arteries and both lower limb arteries with multivessel short segment narrowing of common femoral and superficial femoral arteries narrow caliber flow in bilateral popliteal and tibioperoneal arteries. No demonstrable flow in bilateral distal anterior and posterior tibial arteries -moderate peripheral vascular disease. Cardiology recommended outpatient follow up as patient does not want further evaluation and treatment at hospital at this point of time. On 03/16/2025 patient said that he wants to get procedure done for his PAD, we will reconsult for further evaluation and management Alcohol use disorder W/withdrawal Patient is approximately 72 hours from his last drink, eating very poorly prior to admission and drinking 2 pint per day Patient is started on CIWA protocol High-dose thiamine 250 mg IV t.i.d. for possible Wernicke's Seroquel 12.5 mg t.i.d. p.r.n. for acute agitation, aggression or psychosis Hyponatremia POA On presentation sodium 128 Today sodium 131 All home medications have been reconciled and resumed Nicotine patch14 mg for nicotine dependence GI prophylaxis with Pepcid 20 mg DVT prophylaxis with Eliquis5 mg Discharge Instructions: Patient left AMA Home Medications: Active Scripts Cephalexin Monohydrate (Keflex) 500 Mg Cap, 1 CAP PO TID for 10 Days, #30 CAP 0 Refills Prov:MALIK CHASE MD 04/25/24 Reported Medications Diltiazem HCl (Diltiazem ER) 240 Mg Tab.er.24h, 1 TAB PO DAILY for 30 Days, #30 TAB 0 Refills 03/14/25 Diltiazem HCl (Diltiazem 24Hr Cd) 120 Mg Cap.er.24h, 1 CAP PO HS for 30 Days, #30 CAP 0 Refills 03/14/25 Fluticasone/Umeclidin/Vilanter (Trelegy Ellipta 100-62.5-25) 100-62.5 Blst.w.dev, 1 PUFF IH DAILY for 30 Days, #1 EACH 0 Refills 03/14/25 Folic Acid (Folic Acid) 0.8 Mg Tablet, 1 MG PO DAILY, TAB 03/14/25 Hydroxychloroquine Sulfate (Hydroxychloroquine Sulfate) 200 Mg Tablet, 1 TAB PO BID for 30 Days, #60 TAB 0 Refills 03/14/25 Digoxin (Digoxin) 125 Mcg (0.125 Mg) Tablet, 125 MCG PO AM, TAB 03/14/25 Apixaban (Eliquis) 5 Mg Tablet, 1 TAB PO BID for 30 Days, #60 TAB 0 Refills 03/14/25 Atorvastatin Calcium (LIPITOR) 40 Mg Tablet, 1 TAB PO DAILY for 30 Days, #30 TAB 0 Refills 03/14/25 Duloxetine HCl (Duloxetine HCl) 60 Mg Capsule.dr, 1 CAP PO DAILY for 30 Days, #30 CAP 0 Refills 03/14/25 Pantoprazole Sodium (Pantoprazole Sodium) 40 Mg Tablet.dr, 40 MG PO BID, TAB 03/14/25 Ferrous Fumarate (Ferrous Fumarate) 324 Mg (106 Mg Iron) Tablet, 300 MG PO AM, TAB 03/14/25 Pregabalin (Pregabalin) 150 Mg Capsule, 1 CAP PO TID MDD 3 Capsule(s) for 30 Days, #90 CAP 0 Refills 03/14/25 Valacyclovir HCl (Valacyclovir) 500 Mg Tablet, 1 TAB PO BID for 30 Days, #30 TAB 0 Refills 03/14/25 Oxycodone HCl (Oxycodone HCl) 20 Mg Tablet, 1 TAB PO BID PRN for pain for 5 D ays, #20 TAB 0 Refills 03/13/25 Oxycodone HCl (Oxycodone HCl) 10 Mg Tablet, 1 TAB PO BID PRN for pain for 5 Days, #20 TAB 0 Refills 03/13/25 Time spent arranging discharge: 1-30 minutes ATTESTATION BY PHYSICIAN I have seen and examined the patient. I reviewed the documentation, medical decision making, and treatment plan as noted by the resident physician above. I agree with the findings and plan of care. ROBERT SCHMIDT MD, ADIL SHAH QUADRI MD Mar 18, 2025 17:33
[2025-03-19] MEDS ORDERED: NICOTINE 14 MG/ 24 HR PATCH TD SCH (09:00)
== END 2025-03-18 18:10 | disposition left against medical advice (07) | DRG 871 ==
LOC: EDH 17:50 → EDHIP 23:49 → 4BH 03-14 01:15
PROVIDERS: ADMIT Internal Medicine; ATTEND Internal Medicine
PROC: 05HY33Z Insertion of Infusion Device into Upper Vein, Percutaneous Approach (ICD-10-PCS; principal; 2025-03-17)
DX: A41.9 Sepsis, unspecified organism (principal); E43 Unspecified severe protein-calorie malnutrition; J18.9 Pneumonia, unspecified organism; J96.90 Respiratory failure, unspecified, unspecified whether with hypoxia or hypercapnia; G72.81 Critical illness myopathy; F05 Delirium due to known physiological condition; G93.40 Encephalopathy, unspecified; I47.20 Ventricular tachycardia, unspecified; M48.54XA Collapsed vertebra, not elsewhere classified, thoracic region, initial encounter for fracture; E83.51 Hypocalcemia; E86.0 Dehydration; J44.0 Chronic obstructive pulmonary disease with (acute) lower respiratory infection; Z79.01 Long term (current) use of anticoagulants; F10.239 Alcohol dependence with withdrawal, unspecified; I73.9 Peripheral vascular disease, unspecified; M32.9 Systemic lupus erythematosus, unspecified; K70.30 Alcoholic cirrhosis of liver without ascites; D64.9 Anemia, unspecified; I34.81 Nonrheumatic mitral (valve) annulus calcification; I10 Essential (primary) hypertension; J44.1 Chronic obstructive pulmonary disease with (acute) exacerbation; E87.1 Hypo-osmolality and hyponatremia; J98.11 Atelectasis; Z68.1 Body mass index [BMI] 19.9 or less, adult; E78.00 Pure hypercholesterolemia, unspecified; F17.210 Nicotine dependence, cigarettes, uncomplicated; N20.0 Calculus of kidney; E87.8 Other disorders of electrolyte and fluid balance, not elsewhere classified; I45.10 Unspecified right bundle-branch block; I70.0 Atherosclerosis of aorta; M85.80 Other specified disorders of bone density and structure, unspecified site; I35.1 Nonrheumatic aortic (valve) insufficiency; I35.0 Nonrheumatic aortic (valve) stenosis; Z53.29 Procedure and treatment not carried out because of patient's decision for other reasons; Z74.01 Bed confinement status; Z79.899 Other long term (current) drug therapy
CPT/HCPCS: 36415; 36556; 71045; 71250; 75635; 80048; 80053; 80162; 80305; 81001; 82140; 82550; 82948; 83605; 83735; 83880; 83930; 83935; 84132; 84145; 84300; 84439; 84443; 84481; 84484; 85025; 85027; 85610; 85730; 86140; 87040; 87071; 87086; 87186; 87205; 87635; 87804; 87880; 92610; 93005; 93306; 93356; 93926; 93971; 94640; 94664; 96361; 96374; 96375; 99285; C1894; G0378; J0456; J0696; J2543; J2919; J3411; J3490; J7030; Q9967; C1750